=== PATIENT | female | born 1960 | race Caucasian/White ===

== ENCOUNTER 2017-06-11 19:11 | Inpatient (IN) | payer MEDICARE, MEDICAID ==
[2017-06-11 20:33] LABS: ALT 19 U/L (7-52); AST 66 U/L (13-39); Albumin 2.3 g/dL (3.2-5.2); Alkaline Phosphatase 41 U/L (34-104); BUN/Creatinine Ratio 11.1 (8-20); Blood Urea Nitrogen 13 mg/dL (6-24); Calcium 8.8 mg/dL (8.6-10.3); Chloride 92 mmol/L (101-111); EGFR African American 61.5 (>60); EGFR Non-African American 47.8 (>60); Globulin 3.8 g/dL (2-4); Glucose 119 mg/dL (70-100); Potassium 3.7 mmol/L (3.5-5.0); Sodium 129 mmol/L (133-145); Total Protein 6.1 g/dL (6.4-8.9)
[2017-06-11 20:34] LABS: Troponin I 0.11 ng/mL (<0.04)
[2017-06-11] MEDS ORDERED: NS 0.9% 1000 ML* 3,000 ML IV ONE (20:55)
[2017-06-11 21:01] LABS: Hematocrit 18 % (35-47); Mean Corpuscular HGB Conc 33 g/dl (31-36); Mean Corpuscular Hemoglobin 37 pg (27-31); Mean Corpuscular Volume 111 fL (80-97); Mean Platelet Volume 11 um3 (7.4-10.4); Red Blood Count 1.67 10^6/ul (4.0-5.4); Red Cell Distribution Width 15 % (10.5-15); White Blood Count 4.9 10^3/ul (3.5-10.8)
[2017-06-11 21:03] LABS: Comments Flag Yes
[2017-06-11 21:04] LABS: Acetaminophen < 15 mcg/mL; Add Diff/Slide Review? Slide Review Added; Alcohol < 10 mg/dL (<10); Hemoglobin 6.1 g/dl (12.0-16.0)
[2017-06-11 21:09] LABS: Anion Gap 27 mmol/L (2-11); CO2 Carbon Dioxide 10 mmol/L (22-32)
[2017-06-11 21:20] LABS: TSH (Thyroid Stimulating Horm) 2.99 mcIU/mL (0.34-5.60)
[2017-06-11 21:31] LABS: Urine Bilirubin Negative (Negative); Urine Glucose Negative (Negative); Urine Nitrite Negative (Negative)
[2017-06-11] MEDS ORDERED: Vancomycin(*) 1,000 MG in NS 0.9% 250 ML* 250 ML IVPB ONE (21:33)
[2017-06-11] MEDS ORDERED: Piperacillin/Tazobac ADVAN(*) 3.375 GM in NS 0.9% 100 ML* 100 ML IVPB ONE (21:34)
[2017-06-11] MEDS ORDERED: Ondansetron INJ* 2 MG/ML VIAL IV PRN (21:35)
[2017-06-11] MEDS ORDERED: Thiamine IV* 100 MG/ML 2 ML VIAL IM ONE (21:42)
[2017-06-11] MEDS ORDERED: Acetaminophen TAB* 325 MG PO PRN (21:42)
[2017-06-11 21:59] LABS: Creatine Kinase 492 U/L (10-223); Magnesium 1.8 mg/dL (1.9-2.7)
[2017-06-11] MEDS ORDERED: Vancomycin per Pharmacy* NOTE FOLLOW UP SCH (22:00)
[2017-06-11] MEDS ORDERED: Zosyn per Pharmacy* NOTE FOLLOW UP SCH (22:00)
[2017-06-11 22:01] LABS: Salicylate < 2.50 mg/dL (<30)
--- NOTE | 2017-06-11 22:06 | RAD ---
Indication: Confusion. CT of the brain was performed without IV contrast. Motion artifact degrades the images. Ventricular structures are midline. No midline shift is noted. The extra-axial spaces are unremarkable. There is no evidence of intracranial mass or hemorrhage. No other high or low density lesions are identified. Central and cortical atrophy are otherwise present. Mastoid air cells and paranasal sinuses are otherwise unremarkable. IMPRESSION: No intracranial mass or hemorrhage is noted.
--- NOTE | 2017-06-11 22:06 | RAD ---
Indication: Confusion. Single frontal view of the chest performed at 2150 hours was reviewed. Comparison is made with previous exam dated April 27, 2015. No mediastinal shift is noted. Heart is of normal size and configuration. Lung keenan appear clear. IMPRESSION: NO ACTIVE CARDIOPULMONARY DISEASE IS NOTED.
[2017-06-11] MEDS ORDERED: Vancomycin(*) 1,250 MG in NS 0.9% 250 ML* 250 ML IVPB ONE (22:20)
[2017-06-11] MEDS ORDERED: Piperacillin/Tazobac ADVAN(*) 3.375 GM in D5W 100 ML BAG* 100 ML IVPB ONE (22:30)
--- NOTE | 2017-06-11 22:41 | ED ---
Gissel Archuleta Gabriel, scribed for Darshan Bear MD on 06/11/17 at 1927 . Substance Abuse/Use - HPI Summary HPI Summary: This patient is a 56 year old F BIBA to [facility] after being found on her back at home, likely intoxicated. Patient will only respond with shut up. LEVEL 5 CAVEAT: Patient is uncooperative and likely intoxicated. - History Of Current Complaint Chief Complaint: EDSubstanceAbuse Stated Complaint: AMS Time Seen by Provider: 06/11/17 19:22 Hx Obtained From: Patient Hx From Patient Unobtainable Due To: Other - refuses to speak - Allergies/Home Medications Allergies/Adverse Reactions: Allergies Allergy/AdvReac Type Severity Reaction Status Date / Time super glue Allergy Intermediate effects Uncoded 05/09/15 13:29 breathing per pt PMH/Surg Hx/FS Hx/Imm Hx Previously Healthy: No Cardiovascular History: Reports: Hx Hypertension GI History: Reports: Hx Cirrhosis, Hx Gastroesophageal Reflux Disease Musculoskeletal History: Reports: Hx Osteoporosis Sensory History: Reports: Hx Contacts or Glasses Opthamlomology History: Reports: Hx Contacts or Glasses - Cancer History Cancer Type, Location and Year: mult myeloma Hx Chemotherapy: No Hx Radiation Therapy: No - Immunization History Date of Tetanus Vaccine: unk Date of Influenza Vaccine: unk Infectious Disease History: Unable to Obtain/Confirm Infectious Disease History: Denies: Traveled Outside the [place] in Last 30 Days - Social History Alcohol Use: Rare Substance Use Type: Reports: None Smoking Status (MU): Heavy Every Day Tobacco Smoker Type: Cigarettes - Additional Comments History Additional Comments: LEVEL 5 CAVEAT: Patient is uncooperative and likely intoxicated. Review of Systems - ROS Summary Review of Systems Summary: LEVEL 5 CAVEAT: Patient is uncooperative and likely intoxicated. Negative: Fever All Other Systems Reviewed And Are Negative: Yes Physical Exam - Summary Physical Exam Summary: Appearance: The patient is well-nourished in no acute distress and in no acute pain. Skin: The skin is warm and dry and skin color reflects adequate perfusion. HEENT: ~The head is normocephalic and atraumatic. The pupils are equal and reactive. The conjunctivae are clear and without drainage. ~Nares are patent and without drainage. ~Mouth reveals moist mucous membranes and the throat is without erythema and exudate. ~The external ears are intact. The ear canals are patent and without drainage. The tympanic membranes are intact. Neck: the neck is supple with full range of motion and non-tender. There are no carotid bruits. ~There is no neck vein distension. Respiratory: Chest is non-tender. ~Lungs are clear to auscultation and breath sounds are symmetrical and equal. Cardiovascular: Heart is regular rate and rhythm. ~There is no murmur or rub auscultated. ~~There is no peripheral edema and pulses are symmetrical and equal. Abdomen: The abdomen is soft and non-tender. ~There are normal bowel sounds heard in all four quadrants and there is no organomegaly palpated. Musculoskeletal: There is no back tenderness noted. ~Extremities are non-tender with full range of motion. ~There is good capillary refill. ~There is no peripheral edema or calf tenderness elicited. Neurological: Patient is alert and oriented to person, place and time. ~The patient has symmetrical motor strength in all four extremities. ~Cranial nerves are grossly intact. Deep tendon reflexes are symmetrical and equal in all four extremities. Psychiatric: The patient has an appropriate affect and does not exhibit any anxiety or depression. Triage Information Reviewed: Yes Vital Signs On Initial Exam: Initial Vitals Temp Pulse Resp BP Pulse Ox 97.8 F 122 18 101/35 98 06/11/17 19:14 06/11/17 19:14 06/11/17 19:14 06/11/17 19:14 06/11/17 19:14 Vital Signs Reviewed: Yes Completion Of Physical Exam Limited Due To: Level 5 - Kira Coma Scale Coma Scale Total: 13 Diagnostics - Vital Signs Vital Signs Temp Pulse Resp BP Pulse Ox 06/11/17 19:14 97.8 F 122 18 101/35 98 - Laboratory Lab Results: Lab Results 06/11/17 06/11/17 06/11/17 Range/Units 20:08 20:08 20:08 WBC 4.9 (3.5-10.8) 10^3/ul RBC 1.67 L (4.0-5.4) 10^6/ul Hgb 6.1 L* (12.0-16.0) g/dl Hct 18 L (35-47) % MCV 111 H (80-97) fL MCH 37 H (27-31) pg MCHC 33 (31-36) g/dl RDW 15 (10.5-15) % Plt Count 37 L (150-450) 10^3/ul MPV 11 H (7.4-10.4) um3 Neut % (Auto) 83.1 H (38-83) % Lymph % (Auto) 11.5 L (25-47) % [place] % (Auto) 5.1 (1-9) % Eos % (Auto) 0 (0-6) % Baso % (Auto) 0.3 (0-2) % Absolute Neuts (auto) 4.0 (1.5-7.7) 10^3/ul Absolute Lymphs (auto) 0.6 L (1.0-4.8) 10^3/ul Absolute Monos (auto) 0.2 (0-0.8) 10^3/ul Absolute Eos (auto) 0 (0-0.6) 10^3/ul Absolute Basos (auto) 0 (0-0.2) 10^3/ul Absolute Nucleated RBC 0.01 10^3/ul Nucleated RBC % 0.2 INR (Anticoag Therapy) (0.77-1.02) Sodium 129 L (133-145) mmol/L Potassium 3.7 (3.5-5.0) mmol/L Chloride 92 L (101-111) mmol/L Carbon Dioxide 10 L* (22-32) mmol/L Anion Gap 27 H (2-11) mmol/L BUN 13 (6-24) mg/dL Creatinine 1.17 H (0.51-0.95) mg/dL Est GFR ( Amer) 61.5 (>60) Est GFR (Non-Af Amer) 47.8 (>60) BUN/Creatinine Ratio 11.1 (8-20) Glucose 119 H (70-100) mg/dL Lactic Acid (0.5-2.0) mmol/L Calcium 8.8 (8.6-10.3) mg/dL Magnesium 1.8 L (1.9-2.7) mg/dL Total Bilirubin 3.30 H (0.2-1.0) mg/dL AST 66 H (13-39) U/L ALT 19 (7-52) U/L Alkaline Phosphatase 41 (34-104) U/L Ammonia 87 H (16-53) mol/L Total Creatine Kinase 492 H (10-223) U/L Troponin I 0.11 H* (<0.04) ng/mL Total Protein 6.1 L (6.4-8.9) g/dL Albumin 2.3 L (3.2-5.2) g/dL Globulin 3.8 (2-4) g/dL Albumin/Globulin Ratio 0.6 L (1-3) TSH 2.99 (0.34-5.60) mcIU/mL Urine Color Urine Appearance Urine pH (5-9) Ur Specific [place] (1.010-1.030) Urine Protein (Negative) Urine Ketones (Negative) Urine Blood (Negative) Urine Nitrate (Negative) Urine Bilirubin (Negative) Urine Urobilinogen (Negative) Ur Leukocyte Esterase (Negative) Urine Glucose (Negative) Salicylates < 2.50 (<30) mg/dL Acetaminophen < 15 mcg/mL Serum Alcohol < 10 (<10) mg/dL Blood Type Antibody Screen Crossmatch 06/11/17 06/11/17 06/11/17 Range/Units 20:08 20:08 20:08 WBC (3.5-10.8) 10^3/ul RBC (4.0-5.4) 10^6/ul Hgb (12.0-16.0) g/dl Hct (35-47) % MCV (80-97) fL MCH (27-31) pg MCHC (31-36) g/dl RDW (10.5-15) % Plt Count (150-450) 10^3/ul MPV (7.4-10.4) um3 Neut % (Auto) (38-83) % Lymph % (Auto) (25-47) % [place] % (Auto) (1-9) % Eos % (Auto) (0-6) % Baso % (Auto) (0-2) % Absolute Neuts (auto) (1.5-7.7) 10^3/ul Absolute Lymphs (auto) (1.0-4.8) 10^3/ul Absolute Monos (auto) (0-0.8) 10^3/ul Absolute Eos (auto) (0-0.6) 10^3/ul Absolute Basos (auto) (0-0.2) 10^3/ul Absolute Nucleated RBC 10^3/ul Nucleated RBC % INR (Anticoag Therapy) 1.73 H (0.77-1.02) Sodium (133-145) mmol/L Potassium (3.5-5.0) mmol/L Chloride (101-111) mmol/L Carbon Dioxide (22-32) mmol/L Anion Gap (2-11) mmol/L BUN (6-24) mg/dL Creatinine (0.51-0.95) mg/dL Est GFR ( Amer) (>60) Est GFR (Non-Af Amer) (>60) BUN/Creatinine Ratio (8-20) Glucose (70-100) mg/dL Lactic Acid 16.9 H* (0.5-2.0) mmol/L Calcium (8.6-10.3) mg/dL Magnesium (1.9-2.7) mg/dL Total Bilirubin (0.2-1.0) mg/dL AST (13-39) U/L ALT (7-52) U/L Alkaline Phosphatase (34-104) U/L Ammonia (16-53) mol/L Total Creatine Kinase (10-223) U/L Troponin I (<0.04) ng/mL Total Protein (6.4-8.9) g/dL Albumin (3.2-5.2) g/dL Globulin (2-4) g/dL Albumin/Globulin Ratio (1-3) TSH (0.34-5.60) mcIU/mL Urine Color Urine Appearance Urine pH (5-9) Ur Specific [place] (1.010-1.030) Urine Protein (Negative) Urine Ketones (Negative) Urine Blood (Negative) Urine Nitrate (Negative) Urine Bilirubin (Negative) Urine Urobilinogen (Negative) Ur Leukocyte Esterase (Negative) Urine Glucose (Negative) Salicylates (<30) mg/dL Acetaminophen mcg/mL Serum Alcohol (<10) mg/dL Blood Type A Positive Antibody Screen Pending Crossmatch See Detail 06/11/17 Range/Units 21:17 WBC (3.5-10.8) 10^3/ul RBC (4.0-5.4) 10^6/ul Hgb (12.0-16.0) g/dl Hct (35-47) % MCV (80-97) fL MCH (27-31) pg MCHC (31-36) g/dl RDW (10.5-15) % Plt Count (150-450) 10^3/ul MPV (7.4-10.4) um3 Neut % (Auto) (38-83) % Lymph % (Auto) (25-47) % [place] % (Auto) (1-9) % Eos % (Auto) (0-6) % Baso % (Auto) (0-2) % Absolute Neuts (auto) (1.5-7.7) 10^3/ul Absolute Lymphs (auto) (1.0-4.8) 10^3/ul Absolute Monos (auto) (0-0.8) 10^3/ul Absolute Eos (auto) (0-0.6) 10^3/ul Absolute Basos (auto) (0-0.2) 10^3/ul Absolute Nucleated RBC 10^3/ul Nucleated RBC % INR (Anticoag Therapy) (0.77-1.02) Sodium (133-145) mmol/L Potassium (3.5-5.0) mmol/L Chloride (101-111) mmol/L Carbon Dioxide (22-32) mmol/L Anion Gap (2-11) mmol/L BUN (6-24) mg/dL Creatinine (0.51-0.95) mg/dL Est GFR ( Amer) (>60) Est GFR (Non-Af Amer) (>60) BUN/Creatinine Ratio (8-20) Glucose (70-100) mg/dL Lactic Acid (0.5-2.0) mmol/L Calcium (8.6-10.3) mg/dL Magnesium (1.9-2.7) mg/dL Total Bilirubin (0.2-1.0) mg/dL AST (13-39) U/L ALT (7-52) U/L Alkaline Phosphatase (34-104) U/L Ammonia (16-53) mol/L Total Creatine Kinase (10-223) U/L Troponin I (<0.04) ng/mL Total Protein (6.4-8.9) g/dL Albumin (3.2-5.2) g/dL Globulin (2-4) g/dL Albumin/Globulin Ratio (1-3) TSH (0.34-5.60) mcIU/mL Urine Color Yellow Urine Appearance Clear Urine pH 5.0 (5-9) Ur Specific [place] 1.013 (1.010-1.030) Urine Protein Negative (Negative) Urine Ketones 1+ H (Negative) Urine Blood Negative (Negative) Urine Nitrate Negative (Negative) Urine Bilirubin Negative (Negative) Urine Urobilinogen Positive H (Negative) Ur Leukocyte Esterase Negative (Negative) Urine Glucose Negative (Negative) Salicylates (<30) mg/dL Acetaminophen mcg/mL Serum Alcohol (<10) mg/dL Blood Type Antibody Screen Crossmatch Result Diagrams: 06/11/17 20:08 06/11/17 20:08 Lab Statement: Any lab studies that have been ordered have been reviewed, and results considered in the medical decision making process. - Radiology CXR Radiology Interpretation Completed By: Radiologist - NO ACTIVE CARDIOPULMONARY DISEASE IS NOTED. ED physician has reviewed this report and agrees. - CT CT Head CT Interpretation Completed By: Radiologist - No intracranial mass or hemorrhage is noted. ED physician has reviewed this report and agrees. Course/Dx - Course Course Of Treatment: Ms. Aguirre was found by her significant other unresponsive on the floor. It was unclear how long she lay there. She reportedly had had a nosebleed and possibly coughed up some blood the last couple of days. Here sshe was agitated shouting "get out" and fighting any attempt to examine her. She was found to have a metabolic, anion gap acidosis which is at least partly a lactic acidosis. She was also very anemic and this may all be caused by a relative hypoxia. She is being admitted to the ICU with blood and fluids ordered. - Diagnoses Provider Diagnoses: Altered mental status, unspecified, Lactic acidosis, Severe anemia - Physician Notifications Discussed Care Of Patient With: Rachel Jordan Time Discussed With Above Provider: 21:18 Instructed by Provider To: Other - Discussed patient care with Dr. Jordan, she has agreed to admit the patient. - Critical Care Time Critical Care Time: 30-74 min Discharge - Discharge Plan Condition: Fair Disposition: ADMITTED TO [facility] documentation as recorded by the Gissel novak Gabriel accurately reflects the service I personally performed and the decisions made by me, Darshan Bear MD.
[2017-06-11 22:46] LABS: PCO2 Arterial < 20 mmHg (35-45)
[2017-06-12 00:28] LABS: Venous Bicarbonate HCO3 18.5 mmol/L (24-28)
[2017-06-12 00:49] LABS: BUN/Creatinine Ratio 12.6 (8-20); Calcium 8.1 mg/dL (8.6-10.3); EGFR African American 78.3 (>60); EGFR Non-African American 60.9 (>60); Potassium 3.3 mmol/L (3.5-5.0)
[2017-06-12 01:03] LABS: Troponin I 0.15 ng/mL (<0.04)
[2017-06-12] MEDS ORDERED: Norepinephrine 16MCG/ML IVPRE* 4,000 MCG/250 ML BAG IV ONE (01:36)
[2017-06-12] MEDS ORDERED: LORazepam INJ* 2 MG/ML 1 ML VIAL IV PUSH PRN (01:48)
[2017-06-12] MEDS ORDERED: LORazepam INJ* 2 MG/ML 1 ML VIAL ONE (01:52)
[2017-06-12] MEDS ORDERED: Norepinephrine 16MCG/ML IVPRE* 4,000 MCG/250 ML BAG IV SCH ×2 (02:00→09:38)
[2017-06-12 02:20] LABS: Benzodiazepine Urine Screen None Detected (None Detect)
--- NOTE | 2017-06-12 04:42 | HP ---
Cc: Snow Young MD HISTORY AND PHYSICAL: DATE OF ADMISSION: 06/11/17 TIME OF EVALUATION: 2099 CHIEF COMPLAINT: Altered mental status. HISTORY OF PRESENT ILLNESS: Please note patient is unable to have any meaningful interaction. I am unable to get in touch with the mother and the boyfriend is not present, hence we do not have his contact information. All information is obtained from the ER staff and EMS report. Per EMS report, the patient was found lying on her back repeatedly saying shut up. She began swinging and hitting the EMS staff when they tried to transport her and being very agitated. EMS was called by the boyfriend who did not come to the emergency room with the patient. In the emergency room, the patient had labs, was found to have significant lactic acidosis with macrocytic anemia and was referred to the hospitalist service for further evaluation. On my encounter, patient was resting, what appeared to be comfortably. Any attempt to examine her , she would thrash her arms and yell shut up. Thus, unable to obtain a review of systems. PAST MEDICAL HISTORY: 1. Appears patient to be followed by Dr. Quiroga for multiple myeloma. 2. History of cirrhosis of the liver. 3. History of alcohol use. 4. History of thrombocytopenia. 5. History of anasarca. 6. COPD. 7. Arthritis. 8. Hypertension. PAST SURGICAL HISTORY: Tonsillectomy and tubal /ectopic . MEDICATIONS: Unknown. ALLERGIES: SUPERGLUE. FAMILY HISTORY: Her mother has neuropathy, father has hypertension. SOCIAL HISTORY: Unclear, appears she has a boyfriend. It appears from her notes from 2014, that her parents are her healthcare proxies. She is a smoker, unclear if she is still actively drinking. REVIEW OF SYSTEMS: Unable to be obtain due to patient's altered mental status. CODE STATUS: Full code. PHYSICAL EXAMINATION GENERAL: No acute distress, when bothered, she thrashes her all extremities. It is limited exam, unable to assess her pupils. VITAL SIGNS: Temp is 97.8, pulse rate 111, respiratory rate 15, oxygen saturation 94% on room air, blood pressure 105/86. HEENT: Head is normocephalic. Her hair appears to be thinning. Unable to assess her pupils. She does appear slightly jaundiced. Mucous membranes, her lips are very dry and peeling. RESPIRATORY: Diminished breath sounds. CARDIAC: Systolic murmur, most prominent at the right sternal base. Tachycardiac. ABDOMEN: Limited exam, appears soft. EXTREMITIES: +1 DPs and chronic hemosiderin changes and venous insufficiency changes. NEUROLOGIC: The patient is unable to interact meaningfully, just yells repeatedly shut up and she is moving all extremities. LABORATORY DATA: White count 4.9, hemoglobin 6.1, hematocrit 18, MCV is 111, platelets 37. INR is 1.73. Sodium 129, potassium 3.7, chloride 92, bicarb 10, BUN 13, creatinine 1.17. Lactic acid 16.9, AST 66, total bili is 3.3. Troponin 0.11. Ammonia is 87. Total CK is 492. TSH 2.99. Urine shows +1 ketones. Salicylates negative, acetaminophen level negative, serum alcohol negative. RADIOGRAPHIC DATA: Unable to obtain yet at this time. ASSESSMENT: This is a 56-year-old female with a past medical history of what is believed to be multiple myeloma, chronic obstructive pulmonary disease, and alcohol use presents with altered mental status, found to have multiple laboratory derangements. 1. Altered mental status. Assessment: Unclear etiology. Differential is broad including sepsis, including hepatic encephalopathy, including overdose, toxic ingestion, including a seizure activity versus stroke. Plan: We will treat her lactic acidosis with fluids and followed by a bicarb drip, we will treat her with broad-spectrum antibiotics and obtain a blood culture. We will check a serum osmolarity to rule out any other toxic ingestions. We will also order thiamine IV as well. We will also check a chest x-ray, EKG, and head CT. 2. Macrocytic anemia: Assessment: We will give her 2 units of blood, Hemoccult her stool, although with no elevated BUN, it is unlikely and we will give her thiamine. 3. Chronic medical problems: We will need to follow up with family or boyfriend to get more history on her home medications and more history of what transpired and how long may she have been found down as it is unknown at this time. 4. FEN: We will keep her n.p.o. in the setting of her altered mental status to give her IV fluids. 5. DVT prophylaxis: We will place her on SCDs in the setting of a drop in her H and H. 6. Code status: Presumably full code. PATIENT TIME: Greater than 60 minutes were spent in doing history and physical , more than half the time spent in direct patient contact and critical care time. Case discussed with Dr. Cantor. [id number]/CPS #: [id number] NARAYAN
[2017-06-12 04:46] LABS: BUN/Creatinine Ratio 14.3 (8-20); Calcium 7.6 mg/dL (8.6-10.3); EGFR African American 99.7 (>60); EGFR Non-African American 77.5 (>60); Globulin 3.3 g/dL (2-4); Potassium 3.5 mmol/L (3.5-5.0); Total Bilirubin 3.9 mg/dL (0.2-1.0); Total Protein 5.3 g/dL (6.4-8.9)
[2017-06-12 04:58] LABS: Troponin I 0.46 ng/mL (<0.04)
[2017-06-12] MEDS: ZOSYN 3.375 GM Q8H per EXTENDED INFUSION IVPB SCH ×6 (05:15→19:33)
--- NOTE | 2017-06-12 10:44 | PN ---
Progress Note - Progress Note Date of Service: 06/12/17 Note: CRITICAL CARE MEDICINE Date: 06/12/17 Time: 945 SUBJECTIVE: Patient seen and examined. d/w hospitalist overnight. PHYSICAL EXAM: Vital Signs: Reviewed. levo at 4mcg and SBP 111. RA. Neurologic: eyes close; sitting up, moves all ext and verbal abuses with stimuli ; does not open eyes. when eyes opened she looks left but able to cross midline , reactive pupils and starts saying "what?. HEENT: Sclera mild icteric. Trachea midline. Cardiovascular: S1 S2 Respiratory: little coarse but clear. no rhonchi nor wheeze Abdomen: Soft, nt. no edema, No r/g/r. Extremities: Warm. no edema Access: piv LABS: Reviewed. IMAGING: Reviewed. MEDICATIONS: Reviewed. ASSESSMENT: 56 F Acute metabolic and hepatic encephalopathy Lactic acidosis Cirrhosis of the liver Associated chronic thrombocytopenia Macrocytic anemia of chronic liver dz and probable marrow suppression, with underlying low grade h/o MM Tx for sepsis on admission, but no source and sepsis to be r/o if culture remain benign Hyponatremia associated with liver dz Coagulopathy assoicated with liver dz Moderate protein malnutrition Tobacco abuse H/o etoh abuse Type 2 demand cardiac ischemia PLAN: Neurologic: improved somewhat it seems. protecting self. question if delirium or just still metabolic encepahlopathy to clear. head ct ok. now question of withdrawal or even hypoxic seizure leading to her presentation, especvially with her perfound LA if a remote possibility but not requiring diagnostics at this time; however if slower then perdicted return to baseline mentation (which may take aa few days with her metabolic and hepatic degrees anyway) then may consider mri/eeg needs. but right now, time and support. fix metabolics and utilize lactulose. Cardiovascular: Perfusing. still could utilize fluids today. trop sec to demand. tolerating and sbp >90 ok target. correcting anemia. Respiratory: tolerating on RA. at risk for aspiration and needs icu obs. Gastrointestinal: place ngt today to ensure no blood in stomach on very remote chance and then start meds, lactulose and likely early tf needs until encephalopathy improves to allow po. Renal/Metabolic: correcting and repleting. LA improving but slow to clear sec to liver dz. Infectious Disease: recieved empiric abx and can de-escalate to zosyn today and if cultures neg (as they should be) we can likely r/o sepsis. Hematology: chronic components and then likely more subacute anemia. multifatorial. check irons, retic. supplements. last onc note has pt without criteria for active MM and would be unlike to have advanced to this degree and would allow equilibration into next week and then consider needs for f/u there. Endocrine: tolerable. Musculoskeletal: oob as able. avoid deconditioing. will need pt when able to participate. Psych/Social: f/u needs; social work consult Supportive and preventative care as ordered. Vaccine: f/u when consentable. SUP: H2 VTE prophylaxis: scds; no chemical vte proph sec to quantitative plt abnormality Disposition: ICU Code Status: Full Critical Care Time: 41min Ct Cantor DO
[2017-06-12 10:59] LABS: Corrected Retic Count 3.3 % (0.5-1.5); Immature Retic Fraction 0.56
[2017-06-12 11:00] LABS: Comments Flag Yes
[2017-06-12] MEDS: NS 0.9% 1000 ML* 1,000 ML IV SCH (11:06)
[2017-06-12 11:50] LABS: Total Iron Binding Capacity 230 mcg/dL (250-450); Transferrin 164 mg/dL (203-362)
[2017-06-12] MEDS ORDERED: Vancomycin(*) 1,000 MG in NS 0.9% 250 ML* 250 ML IVPB SCH (12:00)
[2017-06-12] MEDS: Multivitamins/Minerals TAB PO SCH (12:08)
[2017-06-12] MEDS: Thiamine TAB* 100 MG TAB PO SCH (12:08)
[2017-06-12] MEDS: Folic Acid TAB* 1 MG PO SCH (12:08)
[2017-06-12 12:14] LABS: Iron 210 ug/dL (50-212)
[2017-06-12] MEDS: Famotidine SUSP* 40 MG/5 ML ORAL.SYRIN G TUBE SCH (12:23)
--- NOTE | 2017-06-12 13:31 | RAD ---
INDICATION: Nasogastric tube placement COMPARISON: Most recent comparison chest x-ray is dated June 11, 2017 TECHNIQUE: Single AP portable view of the chest was obtained. FINDINGS: Image quality is compromised due to the relative inferiority of a portable chest x-ray. There has been interval placement of a gastric tube with the tip terminating over the expected area of the left gastric fundus. There is left greater than right costophrenic angle blunting which can be seen in the setting of small pleural effusions. IMPRESSION: Interval placement of a gastric tube with the tip overlying the expected location of the gastric fundus.
[2017-06-12] MEDS: NS 0.9% w/ 40 Meq KCL 1000 ML* 1,000 ML IV SCH ×2 (17:24→23:52)
[2017-06-12] MEDS ORDERED: Phytonadione Oral Solution* 5 MG/25 ML UDC PO ONE (21:20)
[2017-06-12 22:19] LABS: BUN/Creatinine Ratio 16.4 (8-20); EGFR African American 130.5 (>60); EGFR Non-African American 101.5 (>60)
[2017-06-12 23:08] LABS: Hematocrit 25 % (35-47); Hemoglobin 8.6 g/dl (12.0-16.0); Mean Corpuscular HGB Conc 35 g/dl (31-36); Mean Corpuscular Hemoglobin 33 pg (27-31); Mean Corpuscular Volume 95 fL (80-97); Mean Platelet Volume 10 um3 (7.4-10.4); Red Blood Count 2.61 10^6/ul (4.0-5.4); Red Cell Distribution Width 23 % (10.5-15); White Blood Count 2.9 10^3/ul (3.5-10.8)
[2017-06-12 23:10] LABS: Add Diff/Slide Review? Slide Review Added; Comments Flag Yes
[2017-06-13] MEDS: ZOSYN 3.375 GM Q8H per EXTENDED INFUSION IVPB SCH ×6 (04:43→19:47)
[2017-06-13 06:15] LABS: Hematocrit 25 % (35-47); Hemoglobin 8.7 g/dl (12.0-16.0); Mean Corpuscular HGB Conc 35 g/dl (31-36); Mean Corpuscular Hemoglobin 34 pg (27-31); Mean Corpuscular Volume 97 fL (80-97); Mean Platelet Volume 10 um3 (7.4-10.4); Red Blood Count 2.59 10^6/ul (4.0-5.4); Red Cell Distribution Width 23 % (10.5-15); White Blood Count 2.6 10^3/ul (3.5-10.8)
[2017-06-13 06:27] LABS: Comments Flag Yes
[2017-06-13 06:29] LABS: Anion Gap 8 mmol/L (2-11); BUN/Creatinine Ratio 14.8 (8-20); Blood Urea Nitrogen 9 mg/dL (6-24); CO2 Carbon Dioxide 18 mmol/L (22-32); Calcium 7.4 mg/dL (8.6-10.3); Chloride 111 mmol/L (101-111); EGFR African American 130.5 (>60); EGFR Non-African American 101.5 (>60); Glucose 112 mg/dL (70-100); Magnesium 1.5 mg/dL (1.9-2.7); Potassium 3.6 mmol/L (3.5-5.0); Sodium 137 mmol/L (133-145)
[2017-06-13] MEDS: NS 0.9% 1000 ML* 1,000 ML IV SCH ×2 (06:35→19:47)
[2017-06-13 07:00] LABS: Phosphorus < 1.0 mg/dL (2.5-5.0)
[2017-06-13] MEDS ORDERED: Magnesium Sulf 4 GM/100 ML IV* 4,000 MG/100 ML BAG IVPB ONE (07:34)
[2017-06-13] MEDS ORDERED: Potassium Phosphate IV* 30 MMOLE in NS 0.9% 500 ML* 500 ML IVPB ONE (08:00)
[2017-06-13] MEDS: Multivitamins/Minerals TAB PO SCH (09:08)
[2017-06-13] MEDS: Thiamine TAB* 100 MG TAB PO SCH (09:08)
[2017-06-13] MEDS: Folic Acid TAB* 1 MG PO SCH (09:08)
[2017-06-13] MEDS: Famotidine SUSP* 40 MG/5 ML ORAL.SYRIN G TUBE SCH (09:09)
--- NOTE | 2017-06-13 10:20 | ECHO ---
Patient: YADIEL SULLIVAN [facility] Rec#: [id number] : 1960 Date: 06/13/2017 Age: 56y Height: 165.1 cm / 65.0 in Weight: 63.05 kg / 139.0 lbs Sex: F BSA: 1.69 Room#: ICU-5 Admit Date#: 06/11/2017 Type: Inpatient Referring: Rachel Jordan Reading: Cesar Velasco MD Hand Cloth Cutter: Trinidad Mcdonald RDCS CC: Snow Young MD Transthoracic Echocardiogram Indication: ACS, elevated troponins BP: 157/66 HR: 107 Rhythm: Tachycardia Findings History: HTN, COPD, GERD, cirrhosis, ETOH abuse, multiple myeloma, smoker. Technical Comments: The study quality is poor. The study is technically limited due to poor acoustic windows. The study is technically limited due to the patient's smoking history. Completed at 1000. Left Ventricle: The left ventricular chamber size is normal. There is no left ventricular hypertrophy. Global left ventricular wall motion and contractility are within normal limits. The left ventricle appears hyperdynamic.Sigmoid septum with mild increase in LVOT turbulence and velocity c/w mild dynamic obstruction. The estimated ejection fraction is greater than 65%. Abnormal left ventricular diastolic function is observed. Abnormal left ventricular diastolic filling is observed, consistent with impaired relaxation. Left Atrium: The left atrium is moderately dilated. Right Ventricle: The right ventricle wall thickness is moderately increased. The right ventricle is slightly dilated. The right ventricular global systolic function is normal. Right Atrium: The right atrial cavity size is normal. Aortic Valve: The aortic valve is trileaflet. The aortic valve leaflets are mildly thickened. There is a trace of aortic regurgitation. There is no evidence of aortic stenosis. Mitral Valve: The mitral valve leaflets are mildly thickened. There is trace to mild mitral regurgitation. There is no evidence of mitral stenosis. Tricuspid Valve: The tricuspid valve leaflets are mildly thickened. There is mild to moderate tricuspid regurgitation. The right ventricular systolic pressure is estimated at 44 mmHg. There is evidence of mild pulmonary hypertension. There is no tricuspid stenosis. Pulmonic Valve: The pulmonic valve structure is not well visualized. There is no pulmonic stenosis. Pericardium: There is no significant pericardial effusion. Aorta: There is no dilatation of the ascending aorta. There is no dilatation of the aortic arch. The aortic root is normal in size. Pulmonary Artery: The main pulmonary artery is not well visualized. Venous: The inferior vena cava is dilated. There is a greater than 50% respiratory change in the inferior vena cava dimension. Summary: There was not any prior study for comparison. Conclusions The left ventricle appears hyperdynamic. Sigmoid septum with mild increase in LVOT turbulence and velocity c/w mild dynamic obstruction. The estimated ejection fraction is greater than 65%. Abnormal left ventricular diastolic function is observed. The left atrium is moderately dilated. The right ventricle wall thickness is moderately increased. The right ventricle is slightly dilated. There is trace to mild mitral regurgitation. There is mild to moderate tricuspid regurgitation. The right ventricular systolic pressure is estimated at 44 mmHg. There is evidence of mild pulmonary hypertension. Measurements Name Value Normal Range RVIDd (AP) 2D 2.7 cm (0.9 - 2.6) RVDdMajor (2D) 4.1 cm (2.2 - 4.4) RAd ISD 4CH 4.9 cm (3.4 - 4.9) RA (A4C)W 4.2 cm (2.9 - 4.6) IVSd (2D) 1 cm (0.6 - 1) LVPWd (2D) 1 cm (0.6 - 1) LVIDd (2D) 4.1 cm (3.6 - 5.4) LVIDs (2D) 2.8 cm - LV FS (2D) 31 % (25 - 45) Aortic Annulus 2.1 cm (1.4 - 2.6) Ao root diameter (2D) 2.9 cm (2.1 - 3.5) Ascending Ao 3.2 cm (2.1 - 3.4) Aortic arch 2 cm (1.8 - 3.4) LA dimension (AP) 2D 4 cm (2.3 - 3.8) LAd ISD 4CH 5.4 cm (2.9 - 5.3) LA ISD 4CH W 4.6 cm (2.5 - 4.5) Name Value Normal Range LA ESV SP 4CH (A/L) 61 ml - LA ESV SP 2CH (A/L) 46 ml - LA ESV BP (A/L) 55 ml - LA ESV BP (A/L) index 32 ml/m2 - LA ESV SP 4CH (MOD) 58 ml - LA ESV SP 2CH (MOD) 45 ml - Name Value Normal Range MV E-wave Vmax 1.3 m/sec - MV deceleration time 172 msec - MV A-wave Vmax 1.7 m/sec - MV E:A ratio 0.76 ratio - LV septal e' Vmax 0.06 m/sec - LV lateral e' Vmax 0.07 m/sec - LV E:e' septal ratio 21.67 ratio - LV E:e' lateral ratio 18.57 ratio - Name Value Normal Range AV Vmax 1.9 m/sec - AV VTI 43.62 cm - AV peak gradient 14.6 mmHg - AV mean gradient 10.11 mmHg - LVOT Vmax 1.9 m/sec - LVOT VTI 36.67 cm - LVOT peak gradient 15.16 mmHg - LVOT mean gradient 10.3 mmHg - ANGELIQUE Vmax 0.64 m/sec - Name Value Normal Range TR Vmax 2.7 m/sec - TR peak gradient 29 mmHg - RAP 15 mmHg - RVSP 44 mmHg - IVC diameter 2.1 cm - Name Value Normal Range PV Vmax 1 m/sec - PV peak gradient 4.27 mmHg -
[2017-06-13] MEDS ORDERED: Phytonadione INJ (Adult)* 5 MG in NS 0.9% 50 ML* 50 ML IV ONE (10:48)
--- NOTE | 2017-06-13 11:05 | PN ---
Progress Note - Progress Note Date of Service: 06/13/17 Note: CRITICAL CARE MEDICINE Date: 06/13/17 Time: 945 SUBJECTIVE: Patient seen and examined. PHYSICAL EXAM: Vital Signs: Reviewed. Neurologic: eyes close; sitting up, moves all ext; quicker responses and more verbal responses but still doesnt want to open eyes. HEENT: Sclera mild icteric. Trachea midline. Cardiovascular: S1 S2, little tachy Respiratory: clear. no wheeze Abdomen: Soft, nt. no edema, No r/g/r. Extremities: Warm. no edema Access: piv LABS: Reviewed. IMAGING: Reviewed. MEDICATIONS: Reviewed. ASSESSMENT: 56 F Acute metabolic and hepatic encephalopathy Lactic acidosis Cirrhosis of the liver Associated chronic thrombocytopenia Macrocytic anemia of chronic liver dz and probable marrow suppression, with underlying low grade h/o MM Tx for sepsis on admission, but no source and sepsis to be r/o if culture remain benign Hyponatremia associated with liver dz Coagulopathy assoicated with liver dz Moderate protein malnutrition Tobacco abuse H/o etoh abuse Type 2 demand cardiac ischemia PLAN: Neurologic: improved. no concerns for seizure; f/u mutifactorial encephalopathy. lactlose. Cardiovascular: Perfusing. vol status ok. will see if she can drink and utilize some tf perhaps today and see how she mobilizes. may still need some fluid. no pressor needs Respiratory: tolerating on RA. Gastrointestinal: ngt well. rx, tf. sup. had bloody bm. with her plt and inr post low flow dynamics not surprising. counts stable. absolutely no peritnoeal or signs of abd pain. supportive care, but may warrant CT; but would allow her to continue to improve first, versus an active bleed to time ct need. Renal/Metabolic: correcting and repleting still. phos deplete. LA linger sec to liver dz. Infectious Disease: on zosyn today with f/u cx. Hematology: vit k po to no benefit and will try iv given her bloody bm. bun on admission not much at all to really think gi infectious or upper ailment but follow counts. no plt need at this time. Endocrine: tolerable. Musculoskeletal: oob as able. avoid deconditioing. Psych/Social: social work consult Supportive and preventative care as ordered. SUP: H2 VTE prophylaxis: scds; no chemical vte proph sec to quantitative plt abnormality Disposition: ICU Code Status: Full Critical Care Time: 25min F. Juan Sakshi, DO
[2017-06-13] MEDS ORDERED: Vancomycin Trough Check NOTE FOLLOW UP ONE (11:30)
[2017-06-13] MEDS: LORazepam INJ* 2 MG/ML 1 ML VIAL IV PUSH PRN (19:47)
[2017-06-14] MEDS: LORazepam INJ* 2 MG/ML 1 ML VIAL IV PUSH PRN (00:45)
[2017-06-14] MEDS: ZOSYN 3.375 GM Q8H per EXTENDED INFUSION IVPB SCH ×4 (02:58→11:08)
[2017-06-14] MEDS: NS 0.9% 1000 ML* 1,000 ML IV SCH ×2 (03:01→11:06)
[2017-06-14 07:29] LABS: BUN/Creatinine Ratio 9.1 (8-20); Calcium 7.5 mg/dL (8.6-10.3); EGFR Non-African American 114.3 (>60); Magnesium 2.2 mg/dL (1.9-2.7); Phosphorus 2.2 mg/dL (2.5-5.0); Potassium 3.5 mmol/L (3.5-5.0)
[2017-06-14] MEDS ORDERED: POTASSIUM PHOSPHATE IVPB ONE (08:00)
[2017-06-14] MEDS ORDERED: D5W IVPB ONE (08:00)
[2017-06-14] MEDS: Folic Acid TAB* 1 MG PO SCH (08:51)
[2017-06-14] MEDS: Multivitamins/Minerals TAB PO SCH (08:51)
[2017-06-14] MEDS: Thiamine TAB* 100 MG TAB PO SCH (08:51)
[2017-06-14] MEDS: Famotidine SUSP* 40 MG/5 ML ORAL.SYRIN G TUBE SCH (09:14)
[2017-06-14] MEDS ORDERED: Albuterol/Ipratropium NEB.SOL* Albuterol 2.5 MG/Ipratropium 0.5 MG 3 ML INH PRN (10:20)
[2017-06-14] MEDS ORDERED: LORazepam INJ* 2 MG/ML 1 ML VIAL IV PUSH PRN (13:18)
--- NOTE | 2017-06-14 13:36 | PN ---
Progress Note - Progress Note Date of Service: 06/14/17 Note: CRITICAL CARE MEDICINE Date: 06/13/17 Time: 945 SUBJECTIVE: Patient seen and examined. PHYSICAL EXAM: Vital Signs: Reviewed. Neurologic: better. opens eyes to voice. more attempts at communication but often unclear. RICHARDS. drinking. HEENT: Sclera anicteric. Trachea midline. Cardiovascular: S1 S2 Respiratory: clear. no wheeze but mild prolonged exhalation Abdomen: Soft, nt. Extremities: Warm. inc edema in abd, not legs, but also on R UE. Access: piv LABS: Reviewed. IMAGING: Reviewed. MEDICATIONS: Reviewed. ASSESSMENT: 56 F Acute metabolic and hepatic encephalopathy - improving Lactic acidosis on admission - resolved. Cirrhosis of the liver Associated chronic thrombocytopenia Macrocytic anemia of chronic liver dz and probable marrow suppression, with underlying low grade h/o MM Tx for sepsis on admission - r/o. Hyponatremia associated with liver dz Coagulopathy assoicated with liver dz Moderate protein malnutrition Hypophosphatemia (contributing to degree of LA) Tobacco abuse H/o etoh abuse Type 2 demand cardiac ischemia PLAN: Neurologic: improved. no concerns for seizure; f/u mutifactorial encephalopathy. lactlose. Cardiovascular: Perfusing. vol status up interstitially and intravasc ok. underlying liver disease may need midodrine + lasix for now to ensure recovery state but hopefully not needing chronic Respiratory: tolerating on RA. nebs prn. not cooperating to use is. Gastrointestinal: ngt continued. tf today as not meeting needs. hopefully can continue to recovery and not need but utilize for now. lasix + midodrine. Renal/Metabolic: lytes repletion. lasix f/u. Infectious Disease: cx neg, other then chronic leukopenia and risk factors, no infection identified and can dc all abx. Hematology: inr better and can use po suppl. Endocrine: tolerable. Musculoskeletal: oob as able. avoid deconditioning. Psych/Social: social work follow Supportive and preventative care as ordered. SUP: H2 VTE prophylaxis: scds; no chemical vte proph sec to quantitative plt abnormality Disposition: ICU Code Status: Full Critical Care Time: 25min Ct Cantor DO
[2017-06-14] MEDS: CMCS - Midodrine (NF) 5 MG TAB PO SCH ×2 (14:52→21:48)
[2017-06-14] MEDS ORDERED: NS 0.9% 1000 ML* 1,000 ML IV ONE (21:30)
[2017-06-15 06:43] LABS: Hematocrit 23 % (35-47); Hemoglobin 7.7 g/dl (12.0-16.0); Mean Corpuscular HGB Conc 33 g/dl (31-36); Mean Corpuscular Hemoglobin 33 pg (27-31); Mean Corpuscular Volume 100 fL (80-97); Mean Platelet Volume 10 um3 (7.4-10.4); Red Blood Count 2.33 10^6/ul (4.0-5.4)
[2017-06-15 06:54] LABS: Comments Flag Yes
[2017-06-15 06:55] LABS: White Blood Count 2.2 10^3/ul (3.5-10.8)
[2017-06-15 06:56] LABS: Red Cell Distribution Width 24 % (10.5-15)
[2017-06-15 06:57] LABS: BUN/Creatinine Ratio 9.3 (8-20); EGFR African American 150.2 (>60); EGFR Non-African American 116.8 (>60); Magnesium 1.9 mg/dL (1.9-2.7); Phosphorus 2.3 mg/dL (2.5-5.0); Potassium 3.2 mmol/L (3.5-5.0)
[2017-06-15] MEDS: Folic Acid TAB* 1 MG PO SCH (08:15)
[2017-06-15] MEDS: Multivitamins/Minerals TAB PO SCH (08:15)
[2017-06-15] MEDS: Famotidine SUSP* 40 MG/5 ML ORAL.SYRIN G TUBE SCH (08:15)
[2017-06-15] MEDS: CMCS - Midodrine (NF) 5 MG TAB PO SCH ×3 (08:15→22:10)
[2017-06-15] MEDS: Thiamine TAB* 100 MG TAB PO SCH (08:16)
[2017-06-15] MEDS ORDERED: NS IVPB ONE ×2 (09:21→10:00)
[2017-06-15] MEDS ORDERED: POTASSIUM PHOSPHATE IVPB ONE ×2 (09:21→10:00)
[2017-06-15] MEDS ORDERED: Potassium Phosphate IV* 30 MMOLE in NS 0.9% 250 ML* 250 ML IVPB ONE (10:00)
[2017-06-15] MEDS ORDERED: Phytonadione Oral Solution* 5 MG/25 ML UDC PO ONE (11:17)
--- NOTE | 2017-06-15 11:28 | PN ---
Progress Note - Progress Note Date of Service: 06/15/17 Note: CRITICAL CARE MEDICINE Date: 06/15/17 Time: 935 SUBJECTIVE: Patient seen and examined. PHYSICAL EXAM: Vital Signs: Reviewed. Neurologic: better again, progress but slow. more interactive but then seems affect limits her participation. HEENT: Sclera anicteric. Trachea midline. ngt stable Cardiovascular: S1 S2 Respiratory: clear. Abdomen: Soft, nt. Extremities: Warm. R UE edema and weeping. Access: picc LABS: Reviewed. IMAGING: Reviewed. MEDICATIONS: Reviewed. ASSESSMENT: 56 F Acute metabolic and hepatic encephalopathy - improving Lactic acidosis on admission - resolved. Cirrhosis of the liver Associated chronic thrombocytopenia Macrocytic anemia of chronic liver dz and marrow suppression Tx for sepsis on admission - r/o Hyponatremia associated with liver dz Coagulopathy assoicated with liver dz Moderate protein malnutrition Hypophosphatemia (contributing to degree of LA) Tobacco abuse H/o etoh abuse Type 2 demand cardiac ischemia on admission Hyperchloremic acidosis PLAN: Neurologic: improving from mutifactorial encephalopathy. lactulose continued. . Cardiovascular: Perfusing. vol status up interstitially but intravasc ok. po lasix. on midodrine to get her through this acute phase. Respiratory: tolerating on RA. nebs prn. Gastrointestinal: ngt continued until better swallow. check eval today. Renal/Metabolic: lyte repletion. Infectious Disease: cx neg. off abx Hematology: po suppl and follow. stool occult neg. Endocrine: tolerable. Musculoskeletal: oob. avoid deconditioning. Psych/Social: social work follow Supportive and preventative care as ordered. SUP: H2 VTE prophylaxis: scds; no chemical vte proph sec to quantitative plt abnormality Disposition: ICU today as not self rescuing yet, but hopeful for tomorrow. Code Status: Full Critical Care Time: 25min Ct Cantor DO
[2017-06-15] MEDS ORDERED: ZOSYN 3.375 GM Q8H per EXTENDED INFUSION IVPB SCH ×2 (11:30)
[2017-06-15] MEDS: Potassium Chloride LIQUID* 20 MEQ PACKET G TUBE SCH ×2 (12:10→22:17)
--- NOTE | 2017-06-15 12:57 | PN ---
Progress Note - Progress Note Date of Service: 06/15/17 Note: CRITICAL CARE MEDICINE Date: 06/16/17 Time: 1235 Doing well today. up to chair. conversing more with family. isra tf. awaiting swallow. ASSESSMENT: 56 F Acute metabolic and hepatic encephalopathy - improving Lactic acidosis on admission - resolved. Cirrhosis of the liver Associated chronic thrombocytopenia Macrocytic anemia of chronic liver dz and marrow suppression Tx for sepsis on admission - r/o Hyponatremia associated with liver dz Coagulopathy assoicated with liver dz Moderate protein malnutrition Hypophosphatemia (contributing to degree of LA) Tobacco abuse H/o etoh abuse Type 2 demand cardiac ischemia on admission Hyperchloremic acidosis PLAN: transfer to floor. continued lactulose. f/u lytes, phos, k f/u cbc, inr - known to onc if needed. no transfusion needs at present. look to wean off midodrine in next 24-48hrs. see if she finds a balance with lasix, +/- aldactone needs. F/u RUE swelling post iv infiltrate. on tf and advance po towards dc ng pt; social Code Status: Full Critical Care Time: 10min F. Juan Cantor DO
[2017-06-15] MEDS ORDERED: Spiriva Inhaler DEVICE* 1 EACH DEVICE SCH (13:00)
[2017-06-15] MEDS ORDERED: Piperacillin/Tazobac ADVAN(*) 3.375 GM in D5W 100 ML BAG* 100 ML IVPB SCH (19:30)
[2017-06-16 06:38] LABS: Hematocrit 26 % (35-47); Hemoglobin 8.3 g/dl (12.0-16.0); Mean Corpuscular HGB Conc 32 g/dl (31-36); Mean Corpuscular Hemoglobin 33 pg (27-31); Mean Corpuscular Volume 103 fL (80-97); Mean Platelet Volume 10 um3 (7.4-10.4); Red Blood Count 2.51 10^6/ul (4.0-5.4)
[2017-06-16 06:41] LABS: Add Diff/Slide Review? Slide Review Added; Comments Flag Yes; Red Cell Distribution Width 24 % (10.5-15)
[2017-06-16 06:42] LABS: White Blood Count 2.9 10^3/ul (3.5-10.8)
[2017-06-16 06:48] LABS: Albumin 1.8 g/dL (3.2-5.2); BUN/Creatinine Ratio 9.1 (8-20); Calcium 8.7 mg/dL (8.6-10.3); EGFR Non-African American 114.3 (>60); Globulin 3.5 g/dL (2-4); Magnesium 1.6 mg/dL (1.9-2.7); Phosphorus 3.2 mg/dL (2.5-5.0); Total Protein 5.3 g/dL (6.4-8.9)
[2017-06-16] MEDS: Potassium Chloride LIQUID* 20 MEQ PACKET G TUBE SCH (08:31)
[2017-06-16] MEDS: Famotidine SUSP* 40 MG/5 ML ORAL.SYRIN G TUBE SCH (08:32)
[2017-06-16] MEDS: Multivitamins/Minerals TAB PO SCH (08:32)
[2017-06-16] MEDS: CMCS - Midodrine (NF) 5 MG TAB PO SCH ×3 (08:33→21:40)
[2017-06-16] MEDS: Folic Acid TAB* 1 MG PO SCH (08:33)
[2017-06-16] MEDS: Tiotropium CAP.INH* CAP.INH/18 MCG (USE ORDER SET !) INH SCH (08:33)
[2017-06-16] MEDS: Thiamine TAB* 100 MG TAB PO SCH (08:33)
[2017-06-16] MEDS: Furosemide TAB* 40 MG PO SCH (12:00)
[2017-06-16] MEDS ORDERED: Furosemide TAB* 40 MG PO SCH (14:00)
--- NOTE | 2017-06-16 15:22 | PN ---
Subjective Date of Service: 06/16/17 Interval History: HOSPITALIST PROGRESS NOTE Patient seen and examined at bedside. She is more awake, states she's hungry, tried to remove her NGT earlier. Denies pain or dyspnea. Family History: Unchanged from Admission Social History: Unchanged from Admission Past Medical History: Unchanged from Admission Objective Active Medications: Acetaminophen (Tylenol Tab*) 650 mg PO Q4H PRN PRN Reason: PAIN Albuterol/Ipratropium (Duoneb (Albuterol 2.5 Mg/Ipratropium 0.5 Mg)) 1 neb INH Q4H PRN PRN Reason: SOB/WHEEZING Device (Tiotropium Inhaler Device*) 1 each .SEE ORDER .USE w/ SPIRIVA CAPS [facility] Famotidine (Pepcid Susp*) 20 mg G TUBE DAILY [facility] Last Admin: 06/16/17 08:32 Dose: 20 mg Folic Acid (Folvite Tab*) 1 mg PO DAILY [facility] Last Admin: 06/16/17 08:33 Dose: 1 mg Furosemide (Lasix Tab*) 40 mg PO DAILY [facility] Last Admin: 06/16/17 12:00 Dose: 40 mg Lactulose (Lactulose*) 30 ml NG TUBE TID [facility] Last Admin: 06/16/17 14:42 Dose: 30 ml Lorazepam (Ativan Inj*) 1 mg IV PUSH Q4H PRN PRN Reason: AGITATION Last Admin: 06/16/17 06:54 Dose: 1 mg Midodrine (Midodrine (Nf)) 5 mg PO TID ROSALIE PRN Reason: Protocol Last Admin: 06/16/17 14:42 Dose: 5 mg Multivitamins/Minerals (Theragran/Minerals Tab*) 1 tab PO DAILY [facility] Last Admin: 06/16/17 08:32 Dose: 1 tab Ondansetron HCl (Zofran Inj*) 4 mg IV Q4H PRN PRN Reason: NAUSEA/VOMITING Thiamine HCl (Vitamin B-1 Tab*) 100 mg PO DAILY [facility] Last Admin: 06/16/17 08:33 Dose: 100 mg Tiotropium [place] (Spiriva Cap.Inh*) 1 cap INH DAILY [facility] Last Admin: 06/16/17 08:33 Dose: 1 cap Vital Signs - 8 hr 06/16/17 06/16/17 06/16/17 08:00 08:10 11:34 Temperature 98.9 F 99.3 F Pulse Rate 96 100 Respiratory 18 18 20 Rate Blood Pressure 115/52 116/59 (mmHg) O2 Sat by Pulse 97 98 Oximetry Oxygen Devices in Use Now: None Appearance: Middle aged lady sitting up in bed in NAD. Eyes: - - Mild jaundice Ears/Nose/Mouth/Throat: Mucous Membranes Moist Neck: Trachea Midline Respiratory: Symmetrical Chest Expansion and Respiratory Effort, Clear to Auscultation Cardiovascular: RRR - Normal S1 and S2 Neurological: - - Alert and awake, Ox1 (self only) Result Diagrams: 06/16/17 05:55 06/16/17 05:55 Assess/Plan/Problems-Billing Assessment: Mrs. Aguirre is a 56yo F with PMH of alcohol abuse, liver cirrhosis, COPD, thrombocytopenia, who presented to ED on 06/11/17 with c/o altered MS, found to have hepatic encephalopathy, requiring ICU stay. - Patient Problems (1) Shock Comment: - Patient was hypotensive on admission requiring Levophed. Initially suspected sepsis, but this was not confirmed. - Etiology of shock is unclear. (2) Hepatic encephalopathy Comment: - Improving. - Continue Lactulose. - Ammonia 49. (3) Thrombocytopenia Comment: - Stable between 25-29k, no active bleeding. (4) Moderate protein-calorie malnutrition Comment: - Swallow evaluation appreciated - start pureed diet with honey thick liquids. - Continue NGT feeds until PO intake improves. (5) DVT prophylaxis Comment: - Pharmacological prophylaxis contraindicated due to severe thrombocytopenia. - SCDs. (6) Full code status Current Visit: Yes Status: Acute Code(s): Z78.9 - OTHER SPECIFIED HEALTH STATUS SNOMED Code(s): 982589176 Status and Disposition: Inpatient.
[2017-06-16] MEDS ORDERED: Magnesium Sulfate 2 GM IV* 2 GM/50 ML BAG IVPB ONE (16:42)
[2017-06-17 06:29] LABS: Albumin 1.7 g/dL (3.2-5.2); BUN/Creatinine Ratio 11.1 (8-20); Calcium 8.4 mg/dL (8.6-10.3); EGFR African American 150.2 (>60); EGFR Non-African American 116.8 (>60); Globulin 3.3 g/dL (2-4); Potassium 3.2 mmol/L (3.5-5.0); Total Bilirubin 2.9 mg/dL (0.2-1.0)
[2017-06-17 06:51] LABS: Hematocrit 24 % (35-47); Mean Corpuscular HGB Conc 33 g/dl (31-36); Mean Corpuscular Hemoglobin 33 pg (27-31); Mean Corpuscular Volume 100 fL (80-97); Mean Platelet Volume 11 um3 (7.4-10.4); Red Blood Count 2.42 10^6/ul (4.0-5.4); Red Cell Distribution Width 22 % (10.5-15)
[2017-06-17 06:54] LABS: Add Diff/Slide Review? Manual Diff Added; Comments Flag Yes
[2017-06-17 06:55] LABS: White Blood Count 2.9 10^3/ul (3.5-10.8)
[2017-06-17] MEDS: Furosemide TAB* 40 MG PO SCH (08:46)
[2017-06-17] MEDS: Folic Acid TAB* 1 MG PO SCH (08:46)
[2017-06-17] MEDS: Famotidine SUSP* 40 MG/5 ML ORAL.SYRIN G TUBE SCH (08:46)
[2017-06-17] MEDS: Multivitamins/Minerals TAB PO SCH (08:46)
[2017-06-17] MEDS: Thiamine TAB* 100 MG TAB PO SCH (08:46)
[2017-06-17] MEDS: CMCS - Midodrine (NF) 5 MG TAB PO SCH ×3 (08:46→21:05)
[2017-06-17] MEDS ORDERED: Potassium Chloride LIQUID* 20 MEQ PACKET NG TUBE SCH (09:00)
[2017-06-17] MEDS: Tiotropium CAP.INH* CAP.INH/18 MCG (USE ORDER SET !) INH SCH (09:01)
[2017-06-17 10:43] LABS: Eosinophils % 1 % (0-6); Immature Granulocytes 1 % (0-9); Neutrophil % 77 % (38-83)
[2017-06-17 10:44] LABS: Add Path Review? YES; Macrocytosis 1+
--- NOTE | 2017-06-17 14:15 | PN ---
Subjective Date of Service: 06/17/17 Interval History: HOSPITALIST PROGRESS NOTE Patient seen and examined at bedside. More awake today, does not want NGT anymore. Not up for conversation at this time. Family History: Unchanged from Admission Social History: Unchanged from Admission Past Medical History: Unchanged from Admission Objective Active Medications: Acetaminophen (Tylenol Tab*) 650 mg PO Q4H PRN PRN Reason: PAIN Albuterol/Ipratropium (Duoneb (Albuterol 2.5 Mg/Ipratropium 0.5 Mg)) 1 neb INH Q4H PRN PRN Reason: SOB/WHEEZING Device (Tiotropium Inhaler Device*) 1 each .SEE ORDER .USE w/ SPIRIVA CAPS [facility] Famotidine (Pepcid Susp*) 20 mg PO DAILY ROSALIE Folic Acid (Folvite Tab*) 1 mg PO DAILY [facility] Last Admin: 06/17/17 08:46 Dose: 1 mg Furosemide (Lasix Tab*) 40 mg PO DAILY [facility] Last Admin: 06/17/17 08:46 Dose: 40 mg Lactulose (Lactulose*) 30 ml PO TID ROSALIE Lorazepam (Ativan Inj*) 1 mg IV PUSH Q4H PRN PRN Reason: AGITATION Last Admin: 06/16/17 06:54 Dose: 1 mg Midodrine (Midodrine (Nf)) 5 mg PO TID ROSALIE PRN Reason: Protocol Last Admin: 06/17/17 08:46 Dose: 5 mg Multivitamins/Minerals (Theragran/Minerals Tab*) 1 tab PO DAILY [facility] Last Admin: 06/17/17 08:46 Dose: 1 tab Ondansetron HCl (Zofran Inj*) 4 mg IV Q4H PRN PRN Reason: NAUSEA/VOMITING Potassium Chloride (Klor-Con Liquid*) 40 meq PO DAILY [facility] Thiamine HCl (Vitamin B-1 Tab*) 100 mg PO DAILY [facility] Last Admin: 06/17/17 08:46 Dose: 100 mg Tiotropium [place] (Spiriva Cap.Inh*) 1 cap INH DAILY [facility] Last Admin: 06/17/17 09:01 Dose: 1 cap Vital Signs - 8 hr 06/17/17 06/17/17 06/17/17 07:04 07:47 11:10 Temperature 100.4 F 99.6 F Pulse Rate 95 100 Respiratory 20 16 20 Rate Blood Pressure 109/57 131/62 (mmHg) O2 Sat by Pulse 95 97 Oximetry Oxygen Devices in Use Now: None Appearance: Middle aged lady, appears older than stated age, sitting up in bed in NAD. Eyes: - - Mild jaundice Respiratory: Symmetrical Chest Expansion and Respiratory Effort, Clear to Auscultation Cardiovascular: RRR - Normal S1 and S2 Neurological: - - Alert and awake Result Diagrams: 06/17/17 05:50 06/17/17 05:50 Assess/Plan/Problems-Billing Assessment: Mrs. Aguirre is a 56yo F with PMH of alcohol abuse, liver cirrhosis, COPD, thrombocytopenia, who presented to ED on 06/11/17 with c/o altered MS, found to have hepatic encephalopathy, requiring ICU stay. - Patient Problems (1) Shock Comment: - Patient was hypotensive on admission requiring Levophed. Initially suspected sepsis, but this was not confirmed. - Etiology of shock is unclear. (2) Hepatic encephalopathy Comment: - Improving. - Continue Lactulose. - Ammonia 49. (3) Thrombocytopenia Comment: - Stable between 25-35k, no active bleeding. (4) Moderate protein-calorie malnutrition Comment: - Swallow evaluation appreciated - start pureed diet with honey thick liquids. - Continue NGT feeds as tolerated until PO intake improves. (5) DVT prophylaxis Comment: - Pharmacological prophylaxis contraindicated due to severe thrombocytopenia. - SCDs. (6) Full code status Status and Disposition: Inpatient.
[2017-06-18] MEDS: Tiotropium CAP.INH* CAP.INH/18 MCG (USE ORDER SET !) INH SCH (08:19)
[2017-06-18 08:20] LABS: Hematocrit 26 % (35-47); Hemoglobin 8.6 g/dl (12.0-16.0); Mean Corpuscular HGB Conc 34 g/dl (31-36); Mean Corpuscular Hemoglobin 34 pg (27-31); Mean Corpuscular Volume 101 fL (80-97); Mean Platelet Volume 10 um3 (7.4-10.4); Red Blood Count 2.54 10^6/ul (4.0-5.4); Red Cell Distribution Width 21 % (10.5-15)
[2017-06-18 08:21] LABS: Comments Flag Yes
[2017-06-18 08:22] LABS: Add Diff/Slide Review? Manual Diff Added
[2017-06-18 08:31] LABS: Albumin 1.6 g/dL (3.2-5.2); BUN/Creatinine Ratio 14.5 (8-20); C Reactive Protein 16.33 mg/L (< 5.00); Calcium 8.3 mg/dL (8.6-10.3); EGFR African American 128.1 (>60); EGFR Non-African American 99.6 (>60); Globulin 3.5 g/dL (2-4); Potassium 3.3 mmol/L (3.5-5.0); Total Bilirubin 3.7 mg/dL (0.2-1.0); Total Protein 5.1 g/dL (6.4-8.9)
[2017-06-18] MEDS ORDERED: Potassium Chloride LIQUID* 20 MEQ PACKET PO SCH (09:00)
[2017-06-18 09:04] LABS: Eosinophils % 1 % (0-6); Neutrophil % 76 % (38-83)
[2017-06-18 09:05] LABS: Macrocytosis 1+; Polychromasia 2+
[2017-06-18 09:06] LABS: Add Path Review? YES
--- NOTE | 2017-06-18 10:43 | PN ---
Subjective Date of Service: 06/18/17 Interval History: HOSPITALIST PROGRESS NOTE Patient seen and examined at bedside. Removed her NGT yesterday and is tolerating PO diet, although she does not like her honey thick liquids and intake is poor. Family History: Unchanged from Admission Social History: Unchanged from Admission Past Medical History: Unchanged from Admission Objective Active Medications: Acetaminophen (Tylenol Tab*) 650 mg PO Q4H PRN PRN Reason: PAIN Albuterol/Ipratropium (Duoneb (Albuterol 2.5 Mg/Ipratropium 0.5 Mg)) 1 neb INH Q4H PRN PRN Reason: SOB/WHEEZING Device (Tiotropium Inhaler Device*) 1 each .SEE ORDER .USE w/ SPIRIVA CAPS [facility] Famotidine (Pepcid Susp*) 20 mg PO DAILY [facility] Folic Acid (Folvite Tab*) 1 mg PO DAILY [facility] Last Admin: 06/17/17 08:46 Dose: 1 mg Furosemide (Lasix Tab*) 40 mg PO DAILY [facility] Last Admin: 06/17/17 08:46 Dose: 40 mg Lactulose (Lactulose*) 30 ml PO TID [facility] Last Admin: 06/17/17 21:10 Dose: 30 ml Lorazepam (Ativan Inj*) 1 mg IV PUSH Q4H PRN PRN Reason: AGITATION Last Admin: 06/16/17 06:54 Dose: 1 mg Midodrine (Midodrine (Nf)) 5 mg PO TID [facility] PRN Reason: Protocol Last Admin: 06/17/17 21:05 Dose: 5 mg Multivitamins/Minerals (Theragran/Minerals Tab*) 1 tab PO DAILY [facility] Last Admin: 06/17/17 08:46 Dose: 1 tab Ondansetron HCl (Zofran Inj*) 4 mg IV Q4H PRN PRN Reason: NAUSEA/VOMITING Potassium Chloride (Klor-Con Liquid*) 40 meq PO DAILY [facility] Thiamine HCl (Vitamin B-1 Tab*) 100 mg PO DAILY [facility] Last Admin: 06/17/17 08:46 Dose: 100 mg Tiotropium [place] (Spiriva Cap.Inh*) 1 cap INH DAILY [facility] Last Admin: 06/18/17 08:19 Dose: 1 cap Vital Signs - 8 hr 06/18/17 03:20 Temperature 99.4 F Pulse Rate 89 Respiratory 20 Rate Blood Pressure 105/46 (mmHg) O2 Sat by Pulse 99 Oximetry Oxygen Devices in Use Now: None Appearance: Middle aged lady sitting up in bed in NAD. Eyes: No Scleral Icterus Ears/Nose/Mouth/Throat: Mucous Membranes Moist Neck: Trachea Midline Respiratory: Symmetrical Chest Expansion and Respiratory Effort, Clear to Auscultation Cardiovascular: RRR - Normal S1 and S2 Neurological: - - AAOx2 (Self and place), RICHARDS Result Diagrams: 06/18/17 07:57 06/18/17 07:57 Assess/Plan/Problems-Billing Assessment: Mrs. Aguirre is a 56yo F with PMH of alcohol abuse, liver cirrhosis, COPD, thrombocytopenia, who presented to ED on 06/11/17 with c/o altered MS, found to have hepatic encephalopathy, requiring ICU stay. - Patient Problems (1) Fever Comment: - Patient had fever 103 yesterday - unclear source at this time. - Check blood and urine cultures, CxR - no antibiotics for now. (2) Shock Comment: - Patient was hypotensive on admission requiring Levophed. Initially suspected sepsis, but this was not confirmed. - Etiology of shock is unclear. (3) Hepatic encephalopathy Comment: - Improving. - Continue Lactulose. - Ammonia is 23. (4) Thrombocytopenia Comment: - Stable between 25-35k, no active bleeding. (5) Moderate protein-calorie malnutrition Comment: - Swallow evaluation appreciated - continue pureed diet with honey thick liquids. - Patient removed NGT yesterday - continue to monitor PO intake at this time. She is more awake and does not want another NGT. (6) DVT prophylaxis Comment: - Pharmacological prophylaxis contraindicated due to severe thrombocytopenia. - SCDs. (7) Full code status Status and Disposition: Inpatient. Continue PT/OT as tolerated. Will need KEV.
[2017-06-18] MEDS: Folic Acid TAB* 1 MG PO SCH (11:07)
[2017-06-18] MEDS: CMCS - Midodrine (NF) 5 MG TAB PO SCH ×3 (11:07→21:52)
[2017-06-18] MEDS: Multivitamins/Minerals TAB PO SCH (11:07)
[2017-06-18] MEDS: Famotidine SUSP* 40 MG/5 ML ORAL.SYRIN PO SCH (11:07)
[2017-06-18] MEDS: Furosemide TAB* 40 MG PO SCH (11:07)
[2017-06-18] MEDS: Thiamine TAB* 100 MG TAB PO SCH (11:07)
[2017-06-18] MEDS: KCL 10 MEQ/50 ML IVPREMIX* 10 MEQ/50 ML BAG IV SCH ×3 (13:57→16:26)
[2017-06-19] MEDS: Folic Acid TAB* 1 MG PO SCH (07:56)
[2017-06-19] MEDS: Furosemide TAB* 40 MG PO SCH (07:56)
[2017-06-19] MEDS: Multivitamins/Minerals TAB PO SCH (07:56)
[2017-06-19] MEDS: Famotidine SUSP* 40 MG/5 ML ORAL.SYRIN PO SCH (07:56)
[2017-06-19] MEDS: CMCS - Midodrine (NF) 5 MG TAB PO SCH ×3 (07:56→21:57)
[2017-06-19] MEDS: Thiamine TAB* 100 MG TAB PO SCH (08:02)
--- NOTE | 2017-06-19 09:48 | RAD ---
Indication: Fever. Chronic obstructive pulmonary disease. Comparison: June 12, 2017 Technique: Upright AP 0629 hours Report: Alveolar consolidation at the RIGHT mid to upper lung zone. Negative for volume loss. Negative for pleural effusion or pneumothorax. The heart, pulmonary vasculature, and mediastinal contours are unremarkable. IMPRESSION: Pneumonia which may involve the RIGHT upper lobe or superior segment of the RIGHT lower lobe new compared with the recent exam of June 12, 2017.
--- NOTE | 2017-06-19 12:06 | PN ---
Subjective Date of Service: 06/19/17 Interval History: Patient was sitting up earlier this morning. Now she is in bed, wants to sleep. Had a good breakfast, answered questions for nurse. Now reports occasional cough. Patient was on Zosyn for 4 days as well as vanco when in ICU. Family History: Unchanged from Admission Social History: Unchanged from Admission Past Medical History: Unchanged from Admission Objective Active Medications: Acetaminophen (Tylenol Tab*) 650 mg PO Q4H PRN PRN Reason: PAIN Albuterol/Ipratropium (Duoneb (Albuterol 2.5 Mg/Ipratropium 0.5 Mg)) 1 neb INH Q4H PRN PRN Reason: SOB/WHEEZING Device (Tiotropium Inhaler Device*) 1 each .SEE ORDER .USE w/ SPIRIVA CAPS [facility] Famotidine (Pepcid Susp*) 20 mg PO DAILY [facility] Last Admin: 06/19/17 07:56 Dose: 20 mg Folic Acid (Folvite Tab*) 1 mg PO DAILY [facility] Last Admin: 06/19/17 07:56 Dose: 1 mg Furosemide (Lasix Tab*) 40 mg PO DAILY [facility] Last Admin: 06/19/17 07:56 Dose: 40 mg Lactulose (Lactulose*) 30 ml PO TID [facility] Last Admin: 06/19/17 07:55 Dose: 30 ml Lorazepam (Ativan Inj*) 1 mg IV PUSH Q4H PRN PRN Reason: AGITATION Last Admin: 06/16/17 06:54 Dose: 1 mg Midodrine (Midodrine (Nf)) 5 mg PO TID [facility] PRN Reason: Protocol Last Admin: 06/19/17 07:56 Dose: 5 mg Multivitamins/Minerals (Theragran/Minerals Tab*) 1 tab PO DAILY [facility] Last Admin: 06/19/17 07:56 Dose: 1 tab Ondansetron HCl (Zofran Inj*) 4 mg IV Q4H PRN PRN Reason: NAUSEA/VOMITING Thiamine HCl (Vitamin B-1 Tab*) 100 mg PO DAILY [facility] Last Admin: 06/19/17 08:02 Dose: 100 mg Tiotropium [place] (Spiriva Cap.Inh*) 1 cap INH DAILY [facility] Last Admin: 06/18/17 08:19 Dose: 1 cap Vital Signs - 8 hr 06/19/17 06/19/17 08:00 08:08 Temperature 36.8 C Pulse Rate 96 Respiratory 18 20 Rate Blood Pressure 113/48 (mmHg) O2 Sat by Pulse 98 Oximetry Oxygen Devices in Use Now: None Appearance: sleeping, arouses to voice, no distress Ears/Nose/Mouth/Throat: Clear Oropharnyx Neck: No Thyroid Enlargement, Masses Respiratory: - - few expiratory ronchi RT base Cardiovascular: RRR, - - 2/6 systolic murmur at apex, radiates to axilla Abdominal: NL Sounds; No Tenderness; No Distention, No Hepatosplenomegaly Lymphatic: No Cervical Adenopathy Lines/Tubes/Other Access: Clean, Dry and Intact Peripheral IV Result Diagrams: 06/18/17 07:57 06/18/17 07:57 Microbiology and Other Data: Microbiology 06/15/17 05:00 Stool Stool Occult Blood ([facility]ONCHO) - Final 06/12/17 04:20 Blood Bag Transfusion Reaction Culture - Final 06/12/17 04:20 Blood Bag Transfusion Reaction Gram Stain - Final No Growth Day 5 06/12/17 00:10 Nasal Nasal Screen MRSA (PCR)([facility]) - Final Mrsa Negative 06/11/17 22:03 Blood Venous Aerobic Blood Culture - Final 06/11/17 22:03 Blood Venous Anaerobic Blood Culture - Final No Growth Day 5 No Growth Day 5 06/11/17 22:03 Blood Venous Aerobic Blood Culture - Final 06/11/17 22:03 Blood Venous Anaerobic Blood Culture - Final No Growth Day 5 No Growth Day 5 06/18/17 12:44 Blood Venous Blood Culture - Preliminary No Growth Day 1 Diagnostic Imaging: CXR: new RT upper lobe infiltrate Assess/Plan/Problems-Billing Assessment: Mrs. Aguirre is a 56yo F with PMH of alcohol abuse, liver cirrhosis, COPD, myeloma , who presented to ED on 06/11/17 with c/o altered MS, found to have hepatic encephalopathy, requiring ICU stay. - Patient Problems (1) Pneumonia of right upper lobe due to infectious organism Current Visit: Yes Status: Acute Priority: High Code(s): J18.1 - LOBAR PNEUMONIA, UNSPECIFIED ORGANISM SNOMED Code(s): 388393549 Comment: -Patient had fever yesterday, CXR this AM shows infiltrate -starting cefepime/vanco for HAP -patient immunosuppressed, risk for sepsis (2) Hepatic encephalopathy Current Visit: Yes Status: Acute Priority: High Code(s): K72.90 - HEPATIC FAILURE, UNSPECIFIED WITHOUT COMA SNOMED Code(s): 35029989 Comment: - Improving. - Continue Lactulose. - Ammonia normalized, will titrate down lactulose. (3) DVT prophylaxis Current Visit: Yes Status: Acute Priority: Low Code(s): [id number] - SNOMED Code(s): 753622461 Comment: - Pharmacological prophylaxis contraindicated due to severe thrombocytopenia. - SCDs. (4) Thrombocytopenia Current Visit: Yes Status: Acute Priority: Medium Code(s): D69.6 - THROMBOCYTOPENIA, UNSPECIFIED SNOMED Code(s): 780091052 Comment: -due to myeloma - Stable between 25-35k, no active bleeding. Status and Disposition: Inpatient. Continue PT/OT as tolerated. Will need KEV.
[2017-06-19] MEDS ORDERED: Vancomycin per Pharmacy* NOTE FOLLOW UP PRN (12:39)
[2017-06-19] MEDS: Cefepime 2 GM in Dextrose(*) 2 GM/50 ML BAG IV SCH (12:58)
[2017-06-19] MEDS ORDERED: Vancomycin(*) 1,250 MG in NS 0.9% 250 ML* 250 ML IVPB ONE (13:00)
[2017-06-19] MEDS ORDERED: NS 0.9% 250 ML* 500 ML ONE (13:03)
[2017-06-19] MEDS: Tiotropium CAP.INH* CAP.INH/18 MCG (USE ORDER SET !) INH SCH (13:37)
[2017-06-19] MEDS: Vancomycin(*) 1,000 MG in NS 0.9% 250 ML* 250 ML IVPB SCH (22:05)
[2017-06-20] MEDS: Cefepime 2 GM in Dextrose(*) 2 GM/50 ML BAG IV SCH ×2 (00:34→13:07)
[2017-06-20] MEDS: Vancomycin(*) 1,000 MG in NS 0.9% 250 ML* 250 ML IVPB SCH ×2 (04:58→13:10)
[2017-06-20 05:15] LABS: Hematocrit 25 % (35-47); Hemoglobin 8.6 g/dl (12.0-16.0); Mean Corpuscular HGB Conc 34 g/dl (31-36); Mean Corpuscular Hemoglobin 34 pg (27-31); Mean Corpuscular Volume 100 fL (80-97); Mean Platelet Volume 10 um3 (7.4-10.4); Red Blood Count 2.54 10^6/ul (4.0-5.4); Red Cell Distribution Width 20 % (10.5-15); White Blood Count 4.4 10^3/ul (3.5-10.8)
[2017-06-20 05:16] LABS: Comments Flag Yes
[2017-06-20 05:34] LABS: BUN/Creatinine Ratio 18.2 (8-20); C Reactive Protein 30.76 mg/L (< 5.00); Calcium 7.9 mg/dL (8.6-10.3); EGFR African American 119.1 (>60); EGFR Non-African American 92.6 (>60); Potassium 3.4 mmol/L (3.5-5.0)
[2017-06-20] MEDS: Famotidine SUSP* 40 MG/5 ML ORAL.SYRIN PO SCH (08:19)
[2017-06-20] MEDS: Folic Acid TAB* 1 MG PO SCH (08:20)
[2017-06-20] MEDS: Thiamine TAB* 100 MG TAB PO SCH (08:20)
[2017-06-20] MEDS: CMCS - Midodrine (NF) 5 MG TAB PO SCH ×3 (08:20→20:39)
[2017-06-20] MEDS: Multivitamins/Minerals TAB PO SCH (08:20)
[2017-06-20] MEDS: Furosemide TAB* 40 MG PO SCH (08:20)
[2017-06-20] MEDS: Tiotropium CAP.INH* CAP.INH/18 MCG (USE ORDER SET !) INH SCH (08:29)
--- NOTE | 2017-06-20 10:42 | PN ---
Subjective Date of Service: 06/20/17 Interval History: Patient reports mild cough. Has been eating well. Denies diarrhea. Reports she was up to chair, had shower yesterday. Family History: Unchanged from Admission Social History: Unchanged from Admission Past Medical History: Unchanged from Admission Objective Active Medications: Acetaminophen (Tylenol Tab*) 650 mg PO Q4H PRN PRN Reason: PAIN Albuterol/Ipratropium (Duoneb (Albuterol 2.5 Mg/Ipratropium 0.5 Mg)) 1 neb INH Q4H PRN PRN Reason: SOB/WHEEZING Device (Tiotropium Inhaler Device*) 1 each .SEE ORDER .USE w/ SPIRIVA CAPS [facility] Last Admin: 06/19/17 13:37 Dose: 1 each Famotidine (Pepcid Susp*) 20 mg PO DAILY [facility] Last Admin: 06/20/17 08:19 Dose: 20 mg Folic Acid (Folvite Tab*) 1 mg PO DAILY [facility] Last Admin: 06/20/17 08:20 Dose: 1 mg Cefepime HCl (Maxipime 2 Gm In Dextrose Duplex (*)) 2 gm in 50 mls @ 100 mls/ hr IV Q12H [facility] Last Admin: 06/20/17 00:34 Dose: 100 mls/hr Vancomycin HCl 1,000 mg/ (Sodium Chloride) 250 mls @ 166.667 mls/hr IVPB Q8H [facility] Last Admin: 06/20/17 04:58 Dose: 166.667 mls/hr Lactulose (Lactulose*) 30 ml PO BID [facility] Lorazepam (Ativan Inj*) 1 mg IV PUSH Q4H PRN PRN Reason: AGITATION Last Admin: 06/16/17 06:54 Dose: 1 mg Midodrine (Midodrine (Nf)) 5 mg PO TID [facility] PRN Reason: Protocol Last Admin: 06/20/17 08:20 Dose: 5 mg Multivitamins/Minerals (Theragran/Minerals Tab*) 1 tab PO DAILY [facility] Last Admin: 06/20/17 08:20 Dose: 1 tab Ondansetron HCl (Zofran Inj*) 4 mg IV Q4H PRN PRN Reason: NAUSEA/VOMITING Thiamine HCl (Vitamin B-1 Tab*) 100 mg PO DAILY [facility] Last Admin: 06/20/17 08:20 Dose: 100 mg Tiotropium [place] (Spiriva Cap.Inh*) 1 cap INH DAILY [facility] Last Admin: 06/20/17 08:29 Dose: 1 cap Vital Signs - 8 hr 06/20/17 06/20/17 06/20/17 03:15 07:34 08:00 Temperature 37.1 C 36.8 C Pulse Rate 87 89 Respiratory 14 16 16 Rate Blood Pressure 86/45 96/47 (mmHg) O2 Sat by Pulse 94 98 Oximetry Oxygen Devices in Use Now: Nasal Cannula Appearance: sleeping, arouses easily, no distress Ears/Nose/Mouth/Throat: Clear Oropharnyx Neck: No Thyroid Enlargement, Masses Respiratory: Clear to Auscultation Cardiovascular: NL Sounds; No Murmurs; No JVD, No Edema Abdominal: NL Sounds; No Tenderness; No Distention Lymphatic: No Cervical Adenopathy Neurological: Alert and Oriented x 3 Lines/Tubes/Other Access: Clean, Dry and Intact Peripheral IV Nutrition: Taking PO's Result Diagrams: 06/20/17 05:03 06/20/17 05:03 Additional Lab and Data: Lab Results Laboratory Tests 06/20/17 05:03 C-Reactive Protein 30.76 H Microbiology and Other Data: Microbiology 06/15/17 05:00 Stool Stool Occult Blood (PONCHO) - Final 06/12/17 04:20 Blood Bag Transfusion Reaction Culture - Final 06/12/17 04:20 Blood Bag Transfusion Reaction Gram Stain - Final No Growth Day 5 06/12/17 00:10 Nasal Nasal Screen MRSA (PCR)([facility]) - Final Mrsa Negative 06/11/17 22:03 Blood Venous Aerobic Blood Culture - Final 06/11/17 22:03 Blood Venous Anaerobic Blood Culture - Final No Growth Day 5 No Growth Day 5 06/18/17 12:44 Blood Venous Blood Culture - Preliminary No Growth Day 2 06/18/17 12:30 Blood Venous Aerobic Blood Culture - Preliminary 06/18/17 12:30 Blood Venous Anaerobic Blood Culture - Preliminary No Growth Day 1 No Growth Day 1 Diagnostic Imaging: CXR: new RT upper lobe infiltrate Assess/Plan/Problems-Billing Assessment: Mrs. Aguirre is a 56yo F with PMH of alcohol abuse, liver cirrhosis, COPD, myeloma , who presented to ED on 06/11/17 with c/o altered MS, found to have hepatic encephalopathy, requiring ICU stay. - Patient Problems (1) Pneumonia of right upper lobe due to infectious organism Current Visit: Yes Status: Acute Priority: High Code(s): J18.1 - LOBAR PNEUMONIA, UNSPECIFIED ORGANISM SNOMED Code(s): 334853734 Comment: -Patient had fever 2 days ago, afebrile, CXR yesterday shows new infiltrate -started cefepime/vanco for hospital-acquired PNA, responding well -patient immunosuppressed (2) Hepatic encephalopathy Current Visit: Yes Status: Acute Priority: High Code(s): K72.90 - HEPATIC FAILURE, UNSPECIFIED WITHOUT COMA SNOMED Code(s): 36365431 Comment: - Improving. - Continue Lactulose BID - Ammonia normalized, we titrated down lactulose. (3) DVT prophylaxis Current Visit: Yes Status: Acute Priority: Low Code(s): [id number] - SNOMED Code(s): 062218143 Comment: - Pharmacological prophylaxis contraindicated due to severe thrombocytopenia. - SCDs. (4) Thrombocytopenia Current Visit: Yes Status: Acute Priority: Medium Code(s): D69.6 - THROMBOCYTOPENIA, UNSPECIFIED SNOMED Code(s): 235256189 Comment: - due to myeloma - Stable between 25-35k, no active bleeding. - discussed case with Dr. Quiroga, he wants to see her in office. (5) Hyponatremia Current Visit: Yes Status: Acute Priority: Medium Code(s): E87.1 - HYPO- OSMOLALITY AND HYPONATREMIA SNOMED Code(s): 71082361 Comment: - sodium much lower today, likely due to lung process - will stop furosemide, and fluid restrict - recheck BMP in AM Status and Disposition: Inpatient. Continue PT/OT as tolerated. Will need subacute rehab.
[2017-06-20] MEDS ORDERED: Vancomycin Trough Check NOTE FOLLOW UP ONE (12:30)
[2017-06-20] MEDS ORDERED: NS 0.9% 250 ML* 250 ML ONE (16:43)
[2017-06-20] MEDS: Vancomycin(*) 750 MG in NS 0.9% 250 ML* 250 ML IVPB SCH (17:21)
[2017-06-21] MEDS: Cefepime 2 GM in Dextrose(*) 2 GM/50 ML BAG IV SCH ×2 (00:09→12:23)
[2017-06-21] MEDS: Omeprazole CAP* 20 MG PO SCH ×2 (00:11→06:01)
[2017-06-21] MEDS: Vancomycin(*) 750 MG in NS 0.9% 250 ML* 250 ML IVPB SCH ×2 (00:56→08:48)
[2017-06-21 05:50] LABS: Hematocrit 26 % (35-47); Hemoglobin 8.5 g/dl (12.0-16.0); Mean Corpuscular HGB Conc 33 g/dl (31-36); Mean Corpuscular Hemoglobin 34 pg (27-31); Mean Corpuscular Volume 100 fL (80-97); Mean Platelet Volume 11 um3 (7.4-10.4); Red Blood Count 2.54 10^6/ul (4.0-5.4); Red Cell Distribution Width 20 % (10.5-15); White Blood Count 3.7 10^3/ul (3.5-10.8)
[2017-06-21 05:53] LABS: Comments Flag Yes
[2017-06-21 06:04] LABS: BUN/Creatinine Ratio 14.1 (8-20); Calcium 7.5 mg/dL (8.6-10.3); EGFR African American 98.3 (>60); EGFR Non-African American 76.4 (>60); Potassium 2.9 mmol/L (3.5-5.0)
[2017-06-21] MEDS ORDERED: NS 0.9% 250 ML* 250 ML ONE (08:34)
[2017-06-21] MEDS: Tiotropium CAP.INH* CAP.INH/18 MCG (USE ORDER SET !) INH SCH (08:39)
[2017-06-21] MEDS: Famotidine SUSP* 40 MG/5 ML ORAL.SYRIN PO SCH (08:44)
[2017-06-21] MEDS: Folic Acid TAB* 1 MG PO SCH (08:46)
[2017-06-21] MEDS: Multivitamins/Minerals TAB PO SCH (08:46)
[2017-06-21] MEDS: CMCS - Midodrine (NF) 5 MG TAB PO SCH ×2 (08:46→13:36)
[2017-06-21] MEDS: Thiamine TAB* 100 MG TAB PO SCH (08:46)
--- NOTE | 2017-06-21 12:48 | PN ---
Subjective Date of Service: 06/21/17 Interval History: Little cough. Appetite OK. No bowel c/o. Family History: Unchanged from Admission Social History: Unchanged from Admission Past Medical History: Unchanged from Admission Objective Active Medications: Acetaminophen (Tylenol Tab*) 650 mg PO Q4H PRN PRN Reason: PAIN Albuterol/Ipratropium (Duoneb (Albuterol 2.5 Mg/Ipratropium 0.5 Mg)) 1 neb INH Q4H PRN PRN Reason: SOB/WHEEZING Device (Tiotropium Inhaler Device*) 1 each .SEE ORDER .USE w/ SPIRIVA CAPS [facility] Last Admin: 06/19/17 13:37 Dose: 1 each Famotidine (Pepcid Susp*) 20 mg PO DAILY [facility] Last Admin: 06/21/17 08:44 Dose: 20 mg Folic Acid (Folvite Tab*) 1 mg PO DAILY [facility] Last Admin: 06/21/17 08:46 Dose: 1 mg Cefepime HCl (Maxipime 2 Gm In Dextrose Duplex (*)) 2 gm in 50 mls @ 100 mls/ hr IV Q12H [facility] Last Admin: 06/21/17 12:23 Dose: 100 mls/hr Lactulose (Lactulose*) 30 ml PO BID [facility] Last Admin: 06/21/17 08:44 Dose: 30 ml Lorazepam (Ativan Inj*) 1 mg IV PUSH Q4H PRN PRN Reason: AGITATION Last Admin: 06/16/17 06:54 Dose: 1 mg Midodrine (Midodrine (Nf)) 5 mg PO TID [facility] PRN Reason: Protocol Last Admin: 06/21/17 08:46 Dose: 5 mg Multivitamins/Minerals (Theragran/Minerals Tab*) 1 tab PO DAILY [facility] Last Admin: 06/21/17 08:46 Dose: 1 tab Omeprazole (Prilosec Cap*) 20 mg PO 0600 [facility] Last Admin: 06/21/17 06:01 Dose: 20 mg Ondansetron HCl (Zofran Inj*) 4 mg IV Q4H PRN PRN Reason: NAUSEA/VOMITING Pharmacy Profile Note (Vancomycin Trough Check) 1 note FOLLOW UP ONCE ONE Stop: 06/21/17 16:31 Thiamine HCl (Vitamin B-1 Tab*) 100 mg PO DAILY [facility] Last Admin: 06/21/17 08:46 Dose: 100 mg Tiotropium [place] (Spiriva Cap.Inh*) 1 cap INH DAILY [facility] Last Admin: 06/21/17 08:39 Dose: 1 cap Vital Signs - 8 hr 06/21/17 06/21/17 07:21 08:40 Pulse Rate 93 Respiratory 18 18 Rate O2 Sat by Pulse 93 Oximetry Oxygen Devices in Use Now: None Appearance: Alert, partly up in bed. In good spirits. Looks comfortable. Eyes: No Scleral Icterus Cardiovascular: RRR, No Edema, - - 1/6 systolic murmur across precordium Extremities: No Edema, No Clubbing, Cyanosis, - Skin: No Rash or Ulcers, No Nodules or Sclerosis, - Neurological: Alert and Oriented x 3, NL Sensation - No tremor Result Diagrams: 06/21/17 05:22 06/21/17 05:22 Additional Lab and Data: Lab Results Laboratory Tests 06/20/17 05:03 C-Reactive Protein 30.76 H Microbiology and Other Data: Microbiology 06/15/17 05:00 Stool Stool Occult Blood (PONCHO) - Final 06/12/17 04:20 Blood Bag Transfusion Reaction Culture - Final 06/12/17 04:20 Blood Bag Transfusion Reaction Gram Stain - Final No Growth Day 5 06/12/17 00:10 Nasal Nasal Screen MRSA (PCR)([facility]) - Final Mrsa Negative 06/11/17 22:03 Blood Venous Aerobic Blood Culture - Final 06/11/17 22:03 Blood Venous Anaerobic Blood Culture - Final No Growth Day 5 No Growth Day 5 06/18/17 12:44 Blood Venous Blood Culture - Preliminary No Growth Day 2 06/18/17 12:30 Blood Venous Aerobic Blood Culture - Preliminary 06/18/17 12:30 Blood Venous Anaerobic Blood Culture - Preliminary No Growth Day 1 No Growth Day 1 Diagnostic Imaging: CXR: new RT upper lobe infiltrate Assess/Plan/Problems-Billing Assessment: Mrs. Aguirre is a 56yo F with PMH of alcohol abuse, liver cirrhosis, COPD, myeloma , who presented to ED on 06/11/17 with c/o altered MS, found to have hepatic encephalopathy, requiring ICU stay. - Patient Problems (1) Hepatic encephalopathy Current Visit: Yes Status: Acute Priority: High Code(s): K72.90 - HEPATIC FAILURE, UNSPECIFIED WITHOUT COMA SNOMED Code(s): 35599464 Comment: - Improved. - Continue Lactulose 30 ml BID, tolerating well. (2) Pneumonia of right upper lobe due to infectious organism Current Visit: Yes Status: Acute Priority: High Code(s): J18.1 - LOBAR PNEUMONIA, UNSPECIFIED ORGANISM SNOMED Code(s): 580432705 Comment: Improved. Stop vanco. Switch to po antibiotic on discharge, cefuroxime 500 mg bid x 4 days. (3) Cytopenia Current Visit: Yes Status: Acute Code(s): D75.9 - DISEASE OF BLOOD AND BLOOD -FORMING ORGANS, UNSPECIFIED SNOMED Code(s): 43249267 Comment: Anemia, throbocytopenia, borderline WBC all likely due to cirrhosis. Needs outpt fup. Status and Disposition: Walking well. Discharge home. Fup Dr. Young.
--- NOTE | 2017-06-21 13:15 | PN ---
Progress Note - Progress Note Date of Service: 06/21/17 Note: Time spent on discharge 55 minutes.
[2017-06-21 13:35] VITALS: BP 92/42
[2017-06-21] MEDS ORDERED: Vancomycin Trough Check NOTE FOLLOW UP ONE (16:30)
--- NOTE | 2017-06-22 02:23 | DS ---
CC: Dr. Young * DISCHARGE SUMMARY: DATE OF ADMISSION: 06/11/17 DATE OF DISCHARGE: 06/21/17 HISTORY OF PRESENT ILLNESS: This 56-year-old woman presented with altered mental status, the history is detailed in the admission note. She had an elevated ammonia level. She was felt to have hepatitis cirrhosis with hepatic encephalopathy. Whether recent alcohol abuse entered into the picture is difficult to say at this point. Her alcohol level on admission was undetectable. She was given 2 units of blood for her anemia. Later, she was felt to have pneumonia and was given antibiotics for this. She was treated in the intensive care unit for a while. She gradually improved. She was started on midodrine for low blood pressure. Her 2 units of blood was given on . Her hematocrit was 18 before the transfusion and 25 after. It was 26 on the day of discharge. She had significant thrombocytopenia as well. The platelets count was 37 on admission and 45 on the day of discharge. White blood count was 3.7. Potassium was slow. It was 2.9 on the morning of discharge. She was given 20 mEq of potassium and restarted on her spironolactone. She had been on furosemide at home. This was not given in the hospital and will not be continued. She seems to tolerate the current dose of lactulose well. Her ammonia level returned to normal. She was completely oriented on the day of discharge. She was able to walk 200 feet with a walker. FINAL DIAGNOSES: 1. Hepatic encephalopathy. 2. Possible pneumonia. 3. Anemia and thrombocytopenia. 4. Chronic obstructive pulmonary disease. DISCHARGE MEDICATIONS: 1. Folic acid 1 mg daily. 2. Lactulose 30 mL b.i.d. 3. Midodrine 5 mg t.i.d. 4. Thiamine 100 mg daily. 5. Cefuroxime 500 mg b.i.d. for 4 days. 6. Omeprazole 20 mg daily. 7. Tiotropium 1 capsule daily. 8. Albuterol by nebulizer 3 times daily p.r.n. 9. Umeclidinium/Vyvanse 62.5 two puffs daily. 10. Spironolactone 25 mg daily. 11. Alendronate 70 mg every week. [id number]/[facility] #: [id number] [facility]
[2017-06-22] MEDS ORDERED: Spironolactone TAB* 25 MG PO SCH (09:00)
[2017-06-22] MEDS ORDERED: Potassium Chlor TAB* 10 MEQ TAB.ER PO ONE (13:30)
== END 2017-06-21 15:10 | disposition home health service (06) | DRG 441 ==
LOC: ED 19:11 → ICU 21:35 → MEDTELE 06-15 12:50 → MED 06-19 23:15
PROVIDERS: ADMIT Pediatrics; ATTEND Internal Medicine
PROC: 3E033XZ Introduction of Vasopressor into Peripheral Vein, Percutaneous Approach (ICD-10-PCS; 2017-06-11)
PROC: 0DH67UZ Insertion of Feeding Device into Stomach, Via Natural or Artificial Opening (ICD-10-PCS; principal; 2017-06-12)
PROC: 3E0G76Z Introduction of Nutritional Substance into Upper GI, Via Natural or Artificial Opening (ICD-10-PCS; 2017-06-12)
PROC: 30233N1 Transfusion of Nonautologous Red Blood Cells into Peripheral Vein, Percutaneous Approach (ICD-10-PCS; 2017-06-12)
PROC: 02HV33Z Insertion of Infusion Device into Superior Vena Cava, Percutaneous Approach (ICD-10-PCS; 2017-06-12)
PROC: 0DP6XUZ Removal of Feeding Device from Stomach, External Approach (ICD-10-PCS; 2017-06-17)
DX: K72.90 Hepatic failure, unspecified without coma (principal); J18.9 Pneumonia, unspecified organism; R57.9 Shock, unspecified; E44.0 Moderate protein-calorie malnutrition; C90.00 Multiple myeloma not having achieved remission; D68.4 Acquired coagulation factor deficiency; D69.6 Thrombocytopenia, unspecified; N25.89 Other disorders resulting from impaired renal tubular function; E87.1 Hypo-osmolality and hyponatremia; E87.2 Acidosis; I24.8 Other forms of acute ischemic heart disease; K74.60 Unspecified cirrhosis of liver; D53.9 Nutritional anemia, unspecified; J44.9 Chronic obstructive pulmonary disease, unspecified; K21.9 Gastro-esophageal reflux disease without esophagitis; M81.0 Age-related osteoporosis without current pathological fracture; F17.210 Nicotine dependence, cigarettes, uncomplicated; R40.2412 Glasgow coma scale score 13-15, at arrival to emergency department; E83.39 Other disorders of phosphorus metabolism; M19.90 Unspecified osteoarthritis, unspecified site; I10 Essential (primary) hypertension; Z91.048 Other nonmedicinal substance allergy status; Z72.89 Other problems related to lifestyle; Z82.0 Family history of epilepsy and other diseases of the nervous system; Z82.49 Family history of ischemic heart disease and other diseases of the circulatory system; Z68.24 Body mass index [BMI] 24.0-24.9, adult
CPT/HCPCS: 36415; 70450; 71010; 80048; 80053; 80202; 80307; 80320; 80329; 81003; 82140; 82272; 82550; 82803; 83540; 83550; 83605; 83735; 83930; 84100; 84443; 84484; 85025; 85027; 85045; 85060; 85610; 86078; 86140; 86850; 86900; 86901; 86922; 87040; 87641; 93005; 93306; 94640; 94760; A9270-GY; C1751; G0480; J0692; J2060; J2543; J3370; J3411; J3430; J3475; J3480; P9040

== ENCOUNTER 2017-07-15 10:06 | Inpatient (IN) | payer MEDICARE, MEDICAID ==
[2017-07-15 10:56] LABS: ABS Basophils 0 10^3/ul (0-0.2); ABS Eosinophils 0.2 10^3/ul (0-0.6); ABS Lymphocytes 0.5 10^3/ul (1.0-4.8); ABS Monocytes 0.3 10^3/ul (0-0.8); ABS Nucleated RBC 0 10^3/ul; Eosinophil % 3.3 % (0-6); Hematocrit 25 % (35-47); Hemoglobin 8.5 g/dl (12.0-16.0); INR 1.9 (0.77-1.02); Lymphocyte % 10.3 % (25-47); Mean Corpuscular HGB Conc 34 g/dl (31-36); Mean Corpuscular Hemoglobin 31 pg (27-31); Mean Corpuscular Volume 93 fL (80-97); Mean Platelet Volume 10 um3 (7.4-10.4); Nucleated Red Blood Cells % 0.2; Platelet Count 76 10^3/ul (150-450); Red Blood Count 2.73 10^6/ul (4.0-5.4); Red Cell Distribution Width 17 % (10.5-15)
[2017-07-15] MEDS ORDERED: NS 0.9% 1000 ML* 1,000 ML IV ONE (11:31)
[2017-07-15 11:50] LABS: EGFR Non-African American 41.3 (>60)
[2017-07-15] MEDS ORDERED: Ondansetron INJ* 2 MG/ML VIAL IV PRN (14:51)
[2017-07-15] MEDS ORDERED: Potassium Chlor TAB* 20 MEQ TAB.ER PO ONE ×3 (14:59→21:26)
[2017-07-15] MEDS ORDERED: Albuterol/Ipratropium NEB.SOL* Albuterol 2.5 MG/Ipratropium 0.5 MG 3 ML INH PRN (14:59)
[2017-07-15] MEDS ORDERED: Magnesium Sulf 4 GM/100 ML IV* 4,000 MG/100 ML BAG IVPB ONE (15:59)
[2017-07-15] MEDS ORDERED: cefTRIAXone(*) 2 GM in NS 0.9% 100 ML* 100 ML IVPB SCH (16:00)
--- NOTE | 2017-07-15 16:06 | RAD ---
INDICATION: Cough. COMPARISON: Comparison is made with a prior chest x-ray study from June 19, 2017. TECHNIQUE: A portable view of the chest was obtained. FINDINGS: Cardiac and mediastinal contours appear to be within normal limits. The lungs are underinflated and grossly clear. There appears to be near complete interval resolution of the previously noted right upper lobe infiltrate. No pleural effusion is seen. IMPRESSION: NEAR COMPLETE RESOLUTION OF THE RIGHT UPPER LOBE INFILTRATE.
--- NOTE | 2017-07-15 16:29 | ED ---
Miguel Angel Archuleta Stephanie, scribed for Darshan Bear MD on 07/15/17 at 1122 . Complex/Multi-Sys Presentation - HPI Summary HPI Summary: The pt is a 56 y/o F presenting to the ED for abnormal labs per EMS. EMS states patients doctor called 911 because he could not get ahold of patient. Patient arrives slightly jaundiced, alert and oriented with bouts of confusion. Symptoms include pain in the middle of the chest and abdominal bloating. - History Of Current Complaint Chief Complaint: EDGeneral Time Seen by Provider: 07/15/17 10:15 Hx Obtained From: Patient, EMS Onset/Duration: Still Present Timing: Constant Associated Signs And Symptoms: Positive: Chest Pain - medial, Other - abdominal bloating - Allergies/Home Medications Allergies/Adverse Reactions: Allergies Allergy/AdvReac Type Severity Reaction Status Date / Time super glue Allergy Intermediate effects Uncoded 06/11/17 22:59 breathing per pt Home Medications: Home Medications Bumetanide TAB* [Bumex 1 MG TAB*] 1 mg PO .TWICE WEEKLY 07/15/17 [History Confirmed 07/15/17] Calcium Carbonate TAB* 1,250 mg PO DAILY 07/15/17 [History Confirmed 07/15/17] Cholecalciferol CAP/TAB(NF) [Vitamin D3 CAP/TAB (NF)] 2,000 unit PO DAILY [History Confirmed 07/15/17] Lactulose* 30 ml PO DAILY 07/15/17 [History Confirmed 07/15/17] Magnesium Oxide TAB* [MagOx 400 TAB*] 400 mg PO DAILY 07/15/17 [History Confirmed 07/15/17] Midodrine (NF) 10 mg PO TID 07/15/17 [History Confirmed 07/15/17] Potassium Chlor TAB* [Klor Con ER TAB*] 10 meq PO DAILY 07/15/17 [History Confirmed 07/15/17] Potassium Chlor TAB* [Klor Con ER TAB*] 20 meq PO DAILY 07/15/17 [History Confirmed 07/15/17] Umeclidin/Vilant 62.5 MDI(NF) [ANORO 62.5/25 Ellipta DEVICE (NF)] 2 inh PO DAILY 07/15/17 [History Confirmed 07/15/17] PMH/Surg Hx/FS Hx/Imm Hx Endocrine/Hematology History: Reports: Hx Bone Marrow Disease Cardiovascular History: Reports: Hx Hypertension Respiratory History: Reports: Hx Chronic Obstructive Pulmonary Disease (COPD) GI History: Reports: Hx Cirrhosis, Hx Gastroesophageal Reflux Disease Musculoskeletal History: Reports: Hx Arthritis, Hx Osteoporosis Sensory History: Reports: Hx Contacts or Glasses Denies: Hx Hearing Aid Opthamlomology History: Reports: Hx Contacts or Glasses Psychiatric History: Reports: Hx Substance Abuse - ETOH - Cancer History Cancer Type, Location and Year: multiple myeloma Hx Chemotherapy: No Hx Radiation Therapy: No - Surgical History Surgery Procedure, Year, and Place: tonsillectomy Hx Anesthesia Reactions: No - Immunization History Date of Tetanus Vaccine: UTD Date of Influenza Vaccine: UTD Infectious Disease History: Unable to Obtain/Confirm Infectious Disease History: Denies: Traveled Outside the [place] in Last 30 Days - Family History Known Family History: Positive: Unknown - Pt is unaware of any family history when asked. - Social History Alcohol Use: UNKNOWN Alcohol Amount: states she doesn't anymore Substance Use Type: Reports: None Hx Tobacco Use: Yes Smoking Status (MU): Current Every Day Smoker Type: Cigarettes Review of Systems Negative: Fever Positive: Chest Pain - medial Positive: Other - abdominal bloating All Other Systems Reviewed And Are Negative: Yes Physical Exam - Summary Physical Exam Summary: Appearance: The pt is icteric and jaundiced and seems confused. Skin: The skin is warm and dry and skin color reflects adequate perfusion. HEENT: The head is normocephalic and atraumatic. The pupils are equal and reactive. The conjunctivae are clear and without drainage. Nares are patent and without drainage. Mouth reveals moist mucous membranes and the throat is without erythema and exudate. The external ears are intact. The ear canals are patent and without drainage. The tympanic membranes are intact. Neck: the neck is supple with full range of motion and non-tender. There are no carotid bruits. There is no neck vein distension. Respiratory: Chest is non-tender. Lungs are clear to auscultation and breath sounds are symmetrical and equal. Cardiovascular: Heart is regular rate and rhythm. There is no murmur or rub auscultated. There is no peripheral edema and pulses are symmetrical and equal. Abdomen: There is no organomegaly palpated. The abdomen is distended and dull to percussion. Musculoskeletal: There is no back tenderness noted. Extremities are non-tender with full range of motion. There is good capillary refill. There is no peripheral edema or calf tenderness elicited. Neurological: Patient is alert and oriented to person, place and time. The patient has symmetrical motor strength in all four extremities. Cranial nerves are grossly intact. Deep tendon reflexes are symmetrical and equal in all four extremities. Psychiatric: The patient has an appropriate affect and does not exhibit any anxiety or depression. Triage Information Reviewed: Yes Vital Signs On Initial Exam: Initial Vitals Temp Pulse Resp BP Pulse Ox 99.5 F 94 16 98/52 100 07/15/17 10:11 07/15/17 10:11 07/15/17 10:11 07/15/17 10:11 07/15/17 10:11 Vital Signs Reviewed: Yes - [place] Coma Scale Coma Scale Total: 15 Diagnostics - Vital Signs Vital Signs Temp Pulse Resp BP Pulse Ox 07/15/17 10:11 99.5 F 94 16 98/52 100 - Laboratory Lab Results: Lab Results 07/15/17 07/15/17 07/15/17 Range/Units 10:36 10:36 10:36 WBC 5.0 (3.5-10.8) 10^3/ul RBC 2.73 L (4.0-5.4) 10^6/ul Hgb 8.5 L (12.0-16.0) g/dl Hct 25 L (35-47) % MCV 93 (80-97) fL MCH 31 (27-31) pg MCHC 34 (31-36) g/dl RDW 17 H (10.5-15) % Plt Count 76 L (150-450) 10^3/ul MPV 10 (7.4-10.4) um3 Neut % (Auto) 79.8 (38-83) % Lymph % (Auto) 10.3 L (25-47) % Bryan % (Auto) 5.9 (1-9) % Eos % (Auto) 3.3 (0-6) % Baso % (Auto) 0.7 (0-2) % Absolute Neuts (auto) 4.0 (1.5-7.7) 10^3/ul Absolute Lymphs (auto) 0.5 L (1.0-4.8) 10^3/ul Absolute Monos (auto) 0.3 (0-0.8) 10^3/ul Absolute Eos (auto) 0.2 (0-0.6) 10^3/ul Absolute Basos (auto) 0 (0-0.2) 10^3/ul Absolute Nucleated RBC 0 10^3/ul Nucleated RBC % 0.2 INR (Anticoag Therapy) 1.90 H (0.77-1.02) Sodium Pending Potassium Pending Chloride Pending Carbon Dioxide Pending Anion Gap Pending BUN Pending Creatinine Pending Est GFR ( Amer) Pending Est GFR (Non-Af Amer) Pending BUN/Creatinine Ratio Pending Glucose Pending Lactic Acid (0.5-2.0) mmol/L Calcium Pending Total Bilirubin Pending AST Pending ALT Pending Alkaline Phosphatase Pending Troponin I 0.03 (<0.04) ng/mL C-Reactive Protein Pending Total Protein Pending Albumin Pending Globulin Pending Albumin/Globulin Ratio Pending Lipase Pending Serum Alcohol Pending 07/15/17 Range/Units 10:36 WBC (3.5-10.8) 10^3/ul RBC (4.0-5.4) 10^6/ul Hgb (12.0-16.0) g/dl Hct (35-47) % MCV (80-97) fL MCH (27-31) pg MCHC (31-36) g/dl RDW (10.5-15) % Plt Count (150-450) 10^3/ul MPV (7.4-10.4) um3 Neut % (Auto) (38-83) % Lymph % (Auto) (25-47) % Bryan % (Auto) (1-9) % Eos % (Auto) (0-6) % Baso % (Auto) (0-2) % Absolute Neuts (auto) (1.5-7.7) 10^3/ul Absolute Lymphs (auto) (1.0-4.8) 10^3/ul Absolute Monos (auto) (0-0.8) 10^3/ul Absolute Eos (auto) (0-0.6) 10^3/ul Absolute Basos (auto) (0-0.2) 10^3/ul Absolute Nucleated RBC 10^3/ul Nucleated RBC % INR (Anticoag Therapy) (0.77-1.02) Sodium Potassium Chloride Carbon Dioxide Anion Gap BUN Creatinine Est GFR ( Amer) Est GFR (Non-Af Amer) BUN/Creatinine Ratio Glucose Lactic Acid 2.6 H* (0.5-2.0) mmol/L Calcium Total Bilirubin AST ALT Alkaline Phosphatase Troponin I (<0.04) ng/mL C-Reactive Protein Total Protein Albumin Globulin Albumin/Globulin Ratio Lipase Serum Alcohol Result Diagrams: 07/15/17 10:36 07/15/17 10:36 Lab Statement: Any lab studies that have been ordered have been reviewed, and results considered in the medical decision making process. Complex Multi-Symp Course/Dx Course Of Treatment: Ms. Aguirre has severe cirrhosis and has not been taking care of herself. She has prominent ascites and the hospitlists are admitting her for therapeutic paracentesis as well as further W/U. - Diagnoses Provider Diagnoses: Hepatic encephalopathy Discharge - Discharge Plan Condition: Fair Disposition: ADMITTED TO [facility] The documentation as recorded by the Miguel Angel novak Stephanie accurately reflects the service I personally performed and the decisions made by me, Darshan Bear MD.
--- NOTE | 2017-07-15 20:04 | HP ---
CC: Dr. Young * HISTORY AND PHYSICAL: DATE OF ADMISSION: 07/15/17 PRIMARY CARE PROVIDER: Dr. Young. ATTENDING PHYSICIAN WHILE IN THE HOSPITAL: Ana King MD* (report dictated by Samir Ga NP) CHIEF COMPLAINT: 1. Abnormal labs. 2. Concern for safety at home. HISTORY OF PRESENT ILLNESS: Mrs. Aguirre is a 56-year-old female patient who was recently here in the hospital for altered mental status, found to have possible pneumonia and found to be encephalopathic. She was here for several days, discharged on the . She has been doing well, but the patient states that she has noticed that she has had progressive worsening swelling of her abdomen, more ascites. She received the phone call yesterday from her primary that her sodium was off and her electrolytes seemed to be imbalanced. She was told to stop her diuretics. The patient was being called today by the primary and primary could not get a hold of her. According to the patient, she could not get to the phone and the patient's primary had called 911 as there is concern for her safety and electrolyte imbalances. The patient denies having any fevers or chills. She does admit to having some right upper abdominal discomfort and epigastric abdominal pain. She denies any fevers, chills. She says she has been coughing, but that has been nonproductive. She states she does not feel short of breath. She does feel very laid down by the increased amount of fluid. She denies having any chest pain. She states she is really short of breath with exertion. Denies any orthopnea or nocturnal dyspnea. She does admit to having weight gain since being discharged here from [facility]. She says that she has been taking her medications as prescribed. She has been having loose stools, but although she again is on lactulose daily. She denies having any tarry stools, denies having any vomiting of blood and denies having any selma blood per the rectum or with vomit. She has not vomited. There was concern though because of her abnormal labs noted that she is mildly hyponatremic. In addition to this, her ammonia was elevated at 63. Bili was up and there was concern for the ascites and we were asked to evaluate for admission. PAST MEDICAL HISTORY: Significant for: 1. Multiple myeloma. 2. Cirrhosis. 3. EtOH abuse. 4. Thrombocytopenia. 5. Anasarca. 6. COPD. 7. Arthritis. 8. Hypertension. PAST SURGICAL HISTORY: She has had tonsillectomy and she has had ectopic . MEDICATIONS: Home meds include: 1. Thiamine 100 mg p.o. daily. 2. Bactrim 1 tablet p.o. daily. 3. Vitamin D3 2000 units p.o. daily. 4. Spironolactone 25 mg daily. 5. Potassium 30 mEq daily. 6. Prilosec 20 mg p.o. b.i.d. 7. Midodrine 10 mg p.o. t.i.d. 8. Magnesium oxide 400 mg p.o. daily. 9. Lactulose 30 cc p.o. daily. 10. Folic acid 1 mg daily. 11. Cefuroxime 500 mg p.o. b.i.d. 12. Calcium carbonate 1250 mg p.o. daily. 13. Bumex 1 mg p.o. twice weekly. 14. Ellipta 2 inhalations p.o. daily. 15. Fosamax 70 mg p.o. weekly. 16. Albuterol/ipratropium bromide 1 neb inhaled t.i.d. as needed. 17. She did finish her cefuroxime and need to clarify her midodrine dose, as she was on 5 at discharge last time she was here, now it appears that she is up to 10 t.i.d. ALLERGIES TO MEDICATIONS: Include no known drug allergies. FAMILY HISTORY: Mother has a history of neuropathy. Father had a history of hypertension. SOCIAL HISTORY: She is a smoker. She has been a half a pack to pack a day smoker since the age of 15. She does admit to being on alcohol, but she states she has not had a drink since her admission here in early June. She is . Surrogate decision maker, she wished may be her parents. REVIEW OF SYSTEMS: There is a weight change, she does not know how much. She denied having any double vision. There is no ear discharge. She denied having any rhinorrhea. No sore throat. No thyroid enlargement. Does admit to having cough, but it is nonproductive. She does admit to having some right upper abdominal discomfort described as a cramping feeling. Denies having any nausea, vomiting. No dysuria, no frequency. There was no seizure, no loss of consciousness, no pruritus, and no skin ulcerations. Review of 14 systems was completed, all others negative. PHYSICAL EXAMINATION GENERAL: At this time, Mrs. Aguirre is a 56-year-old female patient. She is sitting in the ED stretcher. She does not appear to be in any acute distress. She is chronically ill appearing. She appears to be older than stated age. VITAL SIGNS: Blood pressure 97/61, pulse was last documented at 116, it is actually now 103, respirations are 16, O2 sat 97%, temperature was 99.5. HEENT: Head: Atraumatic, normocephalic. Eyes: EOMs are intact. Sclerae anicteric and not pale. Throat: Oral mucosa appears to be moist. No oropharyngeal erythema. NECK: Supple. LUNGS: Clear to auscultation. Diminished in the bases. Equal diaphragmatic expansion. HEART: Sounds S1, S2. Regular rate and rhythm. No murmurs, rubs, or gallops. ABDOMEN: Soft, flat, nontender. Bowel sounds present. She does have a significant amount of ascites. She is a little tender in the epigastric area. EXTREMITIES: She had +4 pitting edema bilaterally. She had 5/5 strength. NEUROLOGIC: She is awake, alert, and oriented x3. Tongue midline. Contamination Consultant are equal. No gross focal deficits. SKIN: Intact. DIAGNOSTIC STUDIES/LAB DATA: WBC of 5.0, RBC of 2.73, hemoglobin of 8.5, hematocrit 25, which is near baseline, platelet count of 76,000, near the baseline. INR 1.9, which is near baseline. Sodium 124, which looking back this is right where she typically runs, her potassium is 2.5, chloride of 90, bicarb 23, BUN 13, creatinine 1.33, the glucose is 95, lactate 2.6, calcium 7.6. Total bili 3.9, which is right near the baseline, the AST 83, ALT 28, alk phos 97, ammonia 63. Troponin 0.03. Lipase of 18. Albumin of 1.9. Serum alcohol negative. She did have a chest x-ray that is pending. Old medical records were reviewed. ASSESSMENT AND PLAN: Mrs. Aguirre is a 56-year-old female patient with multiple medical problems, coming into the ED today with complaints again initially of abnormal lab work. Her sodium was 121 yesterday, it is now back up to 124, but it was noted that she had lab abnormalities. She is now complaining of ascites and having some abdominal discomfort. She will be admitted under inpatient status for: 1. Liver cirrhosis with ascites. Again, I am concerned that she was having some subtle abdominal pain and she has some discomfort from it. I want to make sure she does not have SBP, which certainly may have rescued some of her liver tests and she does not have fever with a white count though, but she needs a therapeutic and diagnostic paracentesis. I am also going to check her for flu because of the cough and chest x-ray because of recent pneumonia. I am going to continue the Aldactone. We will replace her potassium, try to get that up to around 4. We will diurese her as needed. I would like to see that sodium a little bit higher before we get a back on her Bumex and we will continue to follow her closely and I did put her on empirically Rocephin 2 g until we were able to send off body fluids, cell counts, and cultures. 2. Multiple myeloma. Follow with her primary. 3. History of EtOH abuse. I did place an order for social work consult. 4. Thrombocytopenia. Platelet counts are stable. 5. Anasarca. Again, we will continue the spironolactone. We will do the paracentesis and then we will get her back on her diuretics and diuresis. 6. History of chronic obstructive pulmonary disease. Continue her Ellipta and p.r.n. nebs. 7. History of arthritis. Continue supportive care. 8. Hypertension. Her blood pressure actually is hypotensive. We will continue her midodrine for the time being. We will continue to follow. 9. Hyponatremia. Again, this is probably secondary to liver cirrhosis, but I will send off a urine osmo, serum osmo, urine sodium as well to help us delineate where this hyponatremia is coming from. 10. DVT prophylaxis. I am just going to put her on SCDs at this point as she is thrombocytopenic and INR is 1.9. 11. Code status. Full code. 12. Fluids, electrolytes, and nutrition. She can have a regular diet. TIME SPENT: On admission was 60 minutes, greater than half the time was spent face- to-face with the patient obtaining my history and physical, other half time was spent going over the plan of care with the patient and implementing plan of care. I did discuss the plan of care with my attending, Dr. King; she is in agreement. SAMIR GA NP [id number]/[facility] #: [id number] NARAYAN
[2017-07-15 20:40] LABS: EGFR Non-African American 43.5 (>60)
[2017-07-15] MEDS: Albumin Human 25%* 25 GM/100 ML BTL IV SCH (21:23)
[2017-07-15] MEDS: Omeprazole CAP* 20 MG PO SCH (21:36)
[2017-07-15] MEDS: CMCS: Midodrine (NF) 5 MG TAB PO SCH (21:36)
[2017-07-16 03:30] LABS: Urine Appearance Clear; Urine Blood Negative (Negative); Urine Color Amber; Urine Ketones Negative (Negative); Urine Protein Negative (Negative); Urine Specific Gravity 1.012 (1.010-1.030); Urine Urobilinogen Positive (Negative)
--- NOTE | 2017-07-16 05:07 | PRO ---
CC: Dr. Young * DATE OF PROCEDURE: 07/15/17 - ROOM #421 DATE OF : 60 SURGEON: Kyle Catherine MD GUILLOTINE OPERATOR: None. ANESTHESIOLOGIST: None. PRE-OP DIAGNOSIS: Ascites. POST-OP DIAGNOSIS: Ascites. PROCEDURE PERFORMED: Sonographically-guided paracentesis. INDICATIONS: The patient is a 56-year-old female with known cirrhosis, who has had previous ascites and paracentesis. She is now in the emergency room and has abdominal distention and pressure and a little dyspnea from it and I was called and asked by the hospitalist service to perform paracentesis to help relieve her symptoms. DESCRIPTION OF PROCEDURE: The patient was lying in bed, minimally dyspneic, very large distended abdomen, nontender consistent with ascites on examination. I discussed the procedure with her and she is understanding and agreeable to the procedure; therefore, bedside ultrasound was carried out and in the right upper quadrant, the fluid cavity measures about 5 to 6 cm from the abdominal wall to the liver and this was felt to be a good site for catheter insertion. The site was marked and antiseptic preparation was carried out. Sterile drapes were placed. Local anesthetic 1% lidocaine was administered and a skinny needle was used to identify the ascites fluid, then the paracentesis catheter was inserted. Sample was taken and placed in specimen vials and the hospitalist has ordered various testing for the fluid. Suction bottles were then used to evacuate the abdominal cavity and a total of about 4 L of clear yellow fluid was forth-coming. She tolerated this well. Catheter was removed. Bandage was placed. She will be admitted to the hospitalist service and will be happy to assist in the future should the need arise. [id number]/[facility] #: [id number] MTDD
[2017-07-16] MEDS: Albumin Human 25%* 25 GM/100 ML BTL IV SCH ×3 (05:47→19:17)
[2017-07-16] MEDS: Umeclidin/Vilant 62.5 MDI 62.5/25 mcg 14 INH ELLIPTA DEVICE INH SCH (07:43)
[2017-07-16 08:33] LABS: EGFR Non-African American 51.9 (>60)
[2017-07-16 08:34] LABS: ABS Basophils 0.1 10^3/ul (0-0.2); ABS Eosinophils 0.2 10^3/ul (0-0.6); ABS Lymphocytes 0.5 10^3/ul (1.0-4.8); ABS Monocytes 0.4 10^3/ul (0-0.8); ABS Neutrophils 2.7 10^3/ul (1.5-7.7); ABS Nucleated RBC 0 10^3/ul; Eosinophil % 5.1 % (0-6); Hematocrit 19 % (35-47); Hemoglobin 6.6 g/dl (12.0-16.0); Lymphocyte % 12.5 % (25-47); Mean Corpuscular HGB Conc 34 g/dl (31-36); Mean Corpuscular Hemoglobin 32 pg (27-31); Mean Corpuscular Volume 93 fL (80-97); Mean Platelet Volume 10 um3 (7.4-10.4); Nucleated Red Blood Cells % 0; Platelet Count 54 10^3/ul (150-450); Red Blood Count 2.06 10^6/ul (4.0-5.4); Red Cell Distribution Width 16 % (10.5-15); White Blood Count 3.9 10^3/ul (3.5-10.8)
[2017-07-16 08:37] LABS: INR 2.15 (0.77-1.02)
[2017-07-16] MEDS ORDERED: Potassium Chlor TAB* 20 MEQ TAB.ER PO SCH (09:00)
[2017-07-16] MEDS ORDERED: Magnesium Sulf 4 GM/100 ML IV* 4,000 MG/100 ML BAG IVPB ONE (09:00)
[2017-07-16] MEDS: KCL 10 MEQ/50 ML IVPREMIX* 10 MEQ/50 ML BAG IV SCH ×4 (09:44→18:41)
[2017-07-16] MEDS ORDERED: Furosemide IV* 10 MG/ML VIAL (40 MG) IV ONE (11:19)
--- NOTE | 2017-07-16 11:23 | PN ---
Subjective Date of Service: 07/16/17 Interval History: pt feels better. epigastric pain resolved after paracentesis. stated that she has not drunk ETOH since her [facility] stay in 06/2017 Objective Active Medications: Albuterol/Ipratropium (Duoneb (Albuterol 2.5 Mg/Ipratropium 0.5 Mg)) 1 neb INH TID PRN PRN Reason: SHORTNESS OF BREATH Folic Acid (Folvite Tab*) 1 mg PO DAILY [facility] Ceftriaxone Sodium 2 gm/ (Sodium Chloride) 100 mls @ 200 mls/hr IVPB Q24H [facility] Last Admin: 07/15/17 16:17 Dose: 200 mls/hr Albumin Human (Albumin Human 25%*) 25 gm in 100 mls @ 16 mls/hr IV Q6H [facility] PRN Reason: 4 GM/HR Last Admin: 07/16/17 05:47 Dose: 16 mls/hr Magnesium Sulfate (Magnesium Sulf 4 Gm/100 Ml Iv*) 4,000 mg in 100 mls @ 33.333 mls/hr IVPB ONCE ONE Stop: 07/16/17 11:59 Potassium Chloride (Potassium Chloride 10 Meq/50 Ml Ivpremix*) 10 meq in 50 mls @ 50 mls/hr IV Q1H ROSAL[facility] Stop: 07/16/17 12:59 Last Admin: 07/16/17 09:44 Dose: 50 mls/hr Lactulose (Lactulose*) 30 ml PO BID [facility] Last Admin: 07/15/17 21:36 Dose: 30 ml Magnesium Oxide (Magox 400 Tab*) 800 mg PO DAILY [facility] Midodrine (Midodrine (Nf)) 10 mg PO TID [facility] PRN Reason: Protocol Last Admin: 07/15/17 21:36 Dose: 10 mg Omeprazole (Prilosec Cap*) 20 mg PO BID [facility] Last Admin: 07/15/17 21:36 Dose: 20 mg Ondansetron HCl (Zofran Inj*) 4 mg IV Q6H PRN PRN Reason: NAUSEA Last Admin: 07/15/17 21:50 Dose: 4 mg Potassium Chloride (Klor Con Er Tab*) 20 meq PO DAILY [facility] Spironolactone (Aldactone Tab*) 25 mg PO DAILY [facility] Thiamine HCl (Vitamin B-1 Tab*) 100 mg PO DAILY [facility] Umeclidinium/Vilanterol (Anoro 62.5/25 Ellipta Device (Nf)) 2 inh INH DAILY [facility] Last Admin: 07/16/17 07:43 Dose: Not Given Vital Signs - 8 hr 07/16/17 07/16/17 07/16/17 05:27 05:51 07:40 Temperature 98.1 F 98.1 F 98.1 F Pulse Rate 89 76 76 Respiratory 16 16 16 Rate Blood Pressure 89/47 96/49 95/41 (mmHg) O2 Sat by Pulse 95 96 98 Oximetry Oxygen Devices in Use Now: None Appearance: 56 yo f in nAD, aAOx3 Eyes: PERRLA, - - +scleral icterus Ears/Nose/Mouth/Throat: NL Teeth, Lips, Gums, Mucous Membranes Moist Neck: NL Appearance and Movements; NL JVP, Trachea Midline Respiratory: Symmetrical Chest Expansion and Respiratory Effort, - - coarse breath sounds b/l upper lung keenan Cardiovascular: NL Sounds; No Murmurs; No JVD, RRR Abdominal: - - soft ascites present, liver not palpable Lymphatic: No Cervical Adenopathy Extremities: No Clubbing, Cyanosis, - - b/l ankle edema -trace r>L Skin: No Nodules or Sclerosis, - - jaundice+ Neurological: Alert and Oriented x 3, NL Muscle Strength and Tone Result Diagrams: 07/16/17 08:08 07/16/17 08:08 Additional Lab and Data: Lab Results 07/15/17 07/15/17 07/15/17 Range/Units 10:36 10:36 10:36 WBC 5.0 (3.5-10.8) 10^3/ul RBC 2.73 L (4.0-5.4) 10^6/ul Hgb 8.5 L (12.0-16.0) g/dl Hct 25 L (35-47) % MCV 93 (80-97) fL MCH 31 (27-31) pg MCHC 34 (31-36) g/dl RDW 17 H (10.5-15) % Plt Count 76 L (150-450) 10^3/ul MPV 10 (7.4-10.4) um3 Neut % (Auto) 79.8 (38-83) % Lymph % (Auto) 10.3 L (25-47) % Lyman % (Auto) 5.9 (1-9) % Eos % (Auto) 3.3 (0-6) % Baso % (Auto) 0.7 (0-2) % Absolute Neuts (auto) 4.0 (1.5-7.7) 10^3/ul Absolute Lymphs (auto) 0.5 L (1.0-4.8) 10^3/ul Absolute Monos (auto) 0.3 (0-0.8) 10^3/ul Absolute Eos (auto) 0.2 (0-0.6) 10^3/ul Absolute Basos (auto) 0 (0-0.2) 10^3/ul Absolute Nucleated RBC 0 10^3/ul Nucleated RBC % 0.2 INR (Anticoag Therapy) 1.90 H (0.77-1.02) Sodium Pending Potassium Pending Chloride Pending Carbon Dioxide Pending Anion Gap Pending BUN Pending Creatinine Pending Est GFR ( Amer) Pending Est GFR (Non-Af Amer) Pending BUN/Creatinine Ratio Pending Glucose Pending Lactic Acid (0.5-2.0) mmol/L Calcium Pending Total Bilirubin Pending AST Pending ALT Pending Alkaline Phosphatase Pending Troponin I 0.03 (<0.04) ng/mL C-Reactive Protein Pending Total Protein Pending Albumin Pending Globulin Pending Albumin/Globulin Ratio Pending Lipase Pending Serum Alcohol Pending 07/15/17 Range/Units 10:36 WBC (3.5-10.8) 10^3/ul RBC (4.0-5.4) 10^6/ul Hgb (12.0-16.0) g/dl Hct (35-47) % MCV (80-97) fL MCH (27-31) pg MCHC (31-36) g/dl RDW (10.5-15) % Plt Count (150-450) 10^3/ul MPV (7.4-10.4) um3 Neut % (Auto) (38-83) % Lymph % (Auto) (25-47) % Lyman % (Auto) (1-9) % Eos % (Auto) (0-6) % Baso % (Auto) (0-2) % Absolute Neuts (auto) (1.5-7.7) 10^3/ul Absolute Lymphs (auto) (1.0-4.8) 10^3/ul Absolute Monos (auto) (0-0.8) 10^3/ul Absolute Eos (auto) (0-0.6) 10^3/ul Absolute Basos (auto) (0-0.2) 10^3/ul Absolute Nucleated RBC 10^3/ul Nucleated RBC % INR (Anticoag Therapy) (0.77-1.02) Sodium Potassium Chloride Carbon Dioxide Anion Gap BUN Creatinine Est GFR ( Amer) Est GFR (Non-Af Amer) BUN/Creatinine Ratio Glucose Lactic Acid 2.6 H* (0.5-2.0) mmol/L Calcium Total Bilirubin AST ALT Alkaline Phosphatase Troponin I (<0.04) ng/mL C-Reactive Protein Total Protein Albumin Globulin Albumin/Globulin Ratio Lipase Serum Alcohol Microbiology and Other Data: Microbiology 07/15/17 16:00 Gram Stain - Final Body Fluid 07/15/17 16:00 Influenza Types A,B Antigen (PONCHO) - Final Nasal Specimen received for Influenza A/B Molecular testing Assess/Plan/Problems-Billing Assessment: 56 yo F with h/o MM, ETOH liver cirrhosis presents with tense ascites - Patient Problems (1) Cytopenia Comment: Anemia, throbocytopenia, borderline WBC all likely due to cirrhosis. today Hb down to 6.6 , will transfuse 1 U PRBC , no evidence, or symptoms of bleeding stool occult- (2) Hyponatremia Comment: chronic , due to liver cirrhosis, cont to monitor (3) Liver cirrhosis, alcoholic Comment: cont lactulose, aldactone, midodrine (4) Ascites Comment: as per labs-due to portal HTN s/p 4 L of fluid removed on 07/15/17, no evidence of SBP, will d/c recephin , cont Bactrim for SBP prophylaxis cont albumin infusion and will tx with IV Lasix today (5) LEE (acute kidney injury) Comment: mild creat elevation due to diuretic use, at this point will cont aldactone and Lasix and monitor closely (6) DVT prophylaxis Comment: - Pharmacological prophylaxis contraindicated due to severe thrombocytopenia. - SCDs. Status and Disposition: inpatient
[2017-07-16] MEDS: Magnesium Oxide TAB* 400 MG PO SCH (11:32)
[2017-07-16] MEDS: Folic Acid TAB* 1 MG PO SCH (11:32)
[2017-07-16] MEDS: Thiamine TAB* 100 MG TAB PO SCH (11:32)
[2017-07-16] MEDS: CMCS: Midodrine (NF) 5 MG TAB PO SCH ×3 (11:33→20:07)
[2017-07-16] MEDS: Omeprazole CAP* 20 MG PO SCH ×2 (11:33→20:07)
[2017-07-16] MEDS: Spironolactone TAB* 25 MG PO SCH (11:33)
[2017-07-17] MEDS ORDERED: Potassium Chlor TAB* 20 MEQ TAB.ER PO SCH (08:30)
[2017-07-17] MEDS ORDERED: Sulfamethox/Trimethoprim DS 800/160* TAB PO SCH (09:00)
[2017-07-17] MEDS: Umeclidin/Vilant 62.5 MDI 62.5/25 mcg 14 INH ELLIPTA DEVICE INH SCH (09:23)
[2017-07-17] MEDS: Magnesium Oxide TAB* 400 MG PO SCH (11:24)
[2017-07-17] MEDS: Thiamine TAB* 100 MG TAB PO SCH (11:24)
[2017-07-17] MEDS: Folic Acid TAB* 1 MG PO SCH (11:25)
[2017-07-17] MEDS: Omeprazole CAP* 20 MG PO SCH (11:25)
[2017-07-17] MEDS: CMCS: Midodrine (NF) 5 MG TAB PO SCH ×2 (11:25→15:56)
[2017-07-17] MEDS: Spironolactone TAB* 25 MG PO SCH (11:26)
[2017-07-17 11:31] LABS: ABS Basophils 0 10^3/ul (0-0.2); ABS Eosinophils 0.2 10^3/ul (0-0.6); ABS Lymphocytes 0.5 10^3/ul (1.0-4.8); ABS Monocytes 0.4 10^3/ul (0-0.8); ABS Neutrophils 4.2 10^3/ul (1.5-7.7); ABS Nucleated RBC 0 10^3/ul; Eosinophil % 3.2 % (0-6); Hematocrit 24 % (35-47); Hemoglobin 8.5 g/dl (12.0-16.0); Lymphocyte % 10.2 % (25-47); Mean Corpuscular HGB Conc 35 g/dl (31-36); Mean Corpuscular Hemoglobin 32 pg (27-31); Mean Corpuscular Volume 91 fL (80-97); Mean Platelet Volume 9 um3 (7.4-10.4); Nucleated Red Blood Cells % 0.2; Platelet Count 60 10^3/ul (150-450); Red Blood Count 2.67 10^6/ul (4.0-5.4); Red Cell Distribution Width 17 % (10.5-15); White Blood Count 5.3 10^3/ul (3.5-10.8)
[2017-07-17 11:44] LABS: EGFR Non-African American 59.4 (>60)
[2017-07-17] MEDS ORDERED: KCL 10 MEQ/50 ML IVPREMIX* 20 MEQ/100 ML BAG IV ONE (11:53)
[2017-07-17] MEDS ORDERED: Potassium Chlor TAB* 20 MEQ TAB.ER PO ONE (11:53)
[2017-07-17] MEDS ORDERED: Potassium Chloride LIQUID* 20 MEQ PACKET PO ONE (12:13)
[2017-07-17 15:46] VITALS: BP 96/55
--- NOTE | 2017-07-17 21:14 | DS ---
CC: Dr. Young * DISCHARGE SUMMARY: DATE OF ADMISSION: 07/15/17 DATE OF DISCHARGE: 07/17/17 DISCHARGE DIAGNOSES: 1. Mild hepatic encephalopathy. 2. Pancystitis, status post paracentesis. SECONDARY DIAGNOSES: 1. Alcoholic liver disease and chronic liver failure. 2. History of multiple myeloma. 3. Alcohol abuse. The patient stopped drinking approximately a month ago. 4. History of chronic pancytopenia due to above liver disease. 5. Chronic obstructive pulmonary disease. 6. Anasarca. 7. Arthritis. 8. Hypertension. 9. Tonsillectomy in the past. MEDICATIONS AT DISCHARGE: Include: 1. DuoNeb 3 times a day p.r.n. 2. Fosamax 70 mg weekly. 3. Bumex increased to 1 mg every other day. She used to take it twice a week. 4. Calcium carbonate 1250 mg daily. 5. Vitamin D3 2000 units daily. 6. Folic acid 1 mg daily. 7. Lactulose 30 mL daily. 8. Maalox 400 mg daily. 9. Midodrine 10 mg 2 times a day. 10. Lopressor 20 mg b.i.d. 11. Potassium chloride liquid 40 mEq daily. 12. Aldactone 25 mg daily. 13. Bactrim DS 1 tablet daily. 14. Thiamine 100 mg daily. 15. Anoro Ellipta 62.5/25 two inhalations daily. Patient is recommended to follow up with Dr. Young in approximately 3 days with a blood work for comprehensive metabolic panel to be drawn. Patient was offered visiting nurse services, but she declined. LABORATORY DATA AT DISCHARGE: Included, on 07/17/17, sodium of 125, potassium of 2.7, chloride 97, carbon dioxide 21, BUN 8, creatinine 0.97. Liver function tests showed bilirubin of 3.6, AST of 65, ALT of 22, ammonia of 66, magnesium was 1.8. CBC: White blood cell count of 5.3, hemoglobin of 8.5, hematocrit of 24, and platelets of 60. Please note that patient received 1 unit of packed red blood cell transfusion a day prior to discharge. CONSULTATIONS DURING THE HOSPITAL STAY: Included Dr. Catherine from Surgery for paracentesis. PROCEDURES PERFORMED: Paracentesis performed on 07/15/17. Four liters of straw - colored fluid was removed. The appearance was clear. The wbc were 37, rbc 18 , 17% neutrophils, and 13 lymphocytes. Please note that although patient's potassium level was 2.7, on the day of discharge she received 20 mEq of IV potassium and 60 mEq of liquid p.o. potassium before discharge. She had been quite resistant to replacing her potassium and she had refused potassium replacement in the past. Eventually, she agreed to use liquid potassium at home. HOSPITALIZATION COURSE: Nicole Aguirre is a 56-year-old female with a history of alcoholism and alcoholic liver cirrhosis and liver failure, who presented complaining of epigastric abdominal pain and was noted to have pancystitis. She required paracentesis and originally she was evaluated for possibility of small bowel spontaneous bacterial peritonitis. Four liters of straw-colored fluid was removed from patient, ascitic fluid, without any evidence of spontaneous bacterial peritonitis. Due to large volume paracentesis performed, patient stayed overnight for albumin infusion and additional diuretic use. She did rather well post paracentesis, although she complained of fluid leaking from the paracentesis sight in her right upper quadrant, for which she needed to have applied colostomy bag and she is going to be discharged home to use it as needed. Throughout patient's hospital stay, it became apparent that patient is noncompliant with her medications. She had not been using lactulose as it appears and she was quite encephalopathic at admission with ammonia level over 100. She also has 2 prescriptions for potassium to be used at home, but stated that she does not have potassium pills, and even if she had them, she would not use them. At this point, liquid potassium was prescribed. At discharge, her bumetanide is going to be increased to every other day. Also increased her potassium supplement to 40 mEq daily. She is going to be continued on Bactrim for spontaneous bacterial peritonitis for prophylaxis as well as midodrine for hypotension in this patient with liver failure. I informed the patient that likely she will require repeated paracentesis, but she does not need to be admitted every time that happens. That likely can be done at outpatient setting. Patient stated Dr. Young already referred patient to a law firm consultant for that evaluation. At discharge, patient recommended to follow up with Dr. Young as mentioned above. Patient was offered visiting nurse association services for followup, but she refused. She stated that she is quite antisocial and her and her Yousuf dog do not like that much of company. PHYSICAL EXAM AT THE TIME OF DISCHARGE: Included blood pressure of 94/41, heart rate of 80 and regular, respiratory rate 17, oxygen saturation 97% on room air, temperature of 98.0. General: Patient is a pleasant 56-year-old female, who is in no acute distress. Alert, awake, and oriented x3. HEENT: Head atraumatic, normocephalic. Eyes: Pupils are equal and reactive to light and accommodation. Oropharynx clear. Mucosa moist. Neck: Supple. No JVD, no bruits bilaterally. Cardiovascular: Regular rate and rhythm. No murmur. Abdomen: Ascites present. Soft. Bowel sounds are present in all 4 quadrants. Hepatomegaly not palpated. Patient has a small fluid leak in the area of the paracentesis on the right side of her abdomen. Extremities: There is trace bilateral ankle edema. Pulses +2 bilaterally. No clubbing or cyanosis. On evaluation of the skin, jaundice evident. Patient has areas about her forearms after venipunctures. On neuro evaluation, speech is clear. Cranial nerves II through XII grossly intact. Motor strength is 5/5 bilaterally. Please note that this is a short summary of patient's hospital stay. Please refer to further medical records for details. TIME SPENT: Approximately 45 minutes was spent on patient's discharge. [id number]/[facility] #: [id number] NARAYAN
== END 2017-07-17 17:30 | disposition home or self-care (01) | DRG 432 ==
LOC: ED 10:06 → MED 14:48
PROVIDERS: ADMIT Internal Medicine; ATTEND Internal Medicine
PROC: 0W9G3ZZ Drainage of Peritoneal Cavity, Percutaneous Approach (ICD-10-PCS; principal; 2017-07-15)
PROC: 30233N1 Transfusion of Nonautologous Red Blood Cells into Peripheral Vein, Percutaneous Approach (ICD-10-PCS; 2017-07-16)
DX: K70.40 Alcoholic hepatic failure without coma (principal); K65.2 Spontaneous bacterial peritonitis; K70.31 Alcoholic cirrhosis of liver with ascites; D61.818 Other pancytopenia; N17.9 Acute kidney failure, unspecified; C90.00 Multiple myeloma not having achieved remission; D69.6 Thrombocytopenia, unspecified; N30.80 Other cystitis without hematuria; E87.1 Hypo-osmolality and hyponatremia; F10.20 Alcohol dependence, uncomplicated; F17.210 Nicotine dependence, cigarettes, uncomplicated; D75.9 Disease of blood and blood-forming organs, unspecified; Y90.0 Blood alcohol level of less than 20 mg/100 ml; J44.9 Chronic obstructive pulmonary disease, unspecified; R60.1 Generalized edema; M19.90 Unspecified osteoarthritis, unspecified site; I10 Essential (primary) hypertension; Z79.899 Other long term (current) drug therapy; Z82.49 Family history of ischemic heart disease and other diseases of the circulatory system; Z82.0 Family history of epilepsy and other diseases of the nervous system
CPT/HCPCS: 36415; 71045; 80048; 80053; 80320; 81003; 82140; 82533; 82945; 83013; 83605; 83690; 83735; 83930; 83935; 83986; 84157; 84300; 84302; 84443; 84484; 85025; 85027; 85610; 86140; 86850; 86900; 86901; 86922; 87040; 87205; 87502; 89051; 99406; A9270-GY; G0480; J0696; J1940; J2405; J3475; J3480; P9040; P9047

== ENCOUNTER 2017-08-03 12:20 | Inpatient (IN) | payer MEDICARE, MEDICAID ==
[2017-08-03 13:33] LABS: Hematocrit 26 % (35-47); Hemoglobin 8.7 g/dl (12.0-16.0); Mean Corpuscular HGB Conc 34 g/dl (31-36); Mean Corpuscular Hemoglobin 31 pg (27-31); Mean Corpuscular Volume 93 fL (80-97); Mean Platelet Volume 9 um3 (7.4-10.4); Platelet Count 81 10^3/ul (150-450); Red Blood Count 2.77 10^6/ul (4.0-5.4); Red Cell Distribution Width 18 % (10.5-15); White Blood Count 7.5 10^3/ul (3.5-10.8)
[2017-08-03 13:37] LABS: EGFR Non-African American 62.4 (>60)
[2017-08-03 13:41] LABS: INR 1.54 (0.77-1.02)
[2017-08-03] MEDS ORDERED: NS 0.9% 500 ML* 500 ML IV ONE (13:57)
[2017-08-03 14:41] LABS: ABS Basophils 0.1 10^3/ul (0-0.2); ABS Eosinophils 0 10^3/ul (0-0.6); ABS Lymphocytes 0.7 10^3/ul (1.0-4.8); ABS Monocytes 0.7 10^3/ul (0-0.8); ABS Nucleated RBC 0 10^3/ul; Eosinophil % 0 % (0-6); Lymphocyte % 8.7 % (25-47); Nucleated Red Blood Cells % 0.1
[2017-08-03] MEDS ORDERED: Ondansetron INJ* 2 MG/ML VIAL IV PRN (14:45)
[2017-08-03] MEDS ORDERED: Albuterol/Ipratropium NEB.SOL* Albuterol 2.5 MG/Ipratropium 0.5 MG 3 ML INH PRN (14:49)
[2017-08-03] MEDS ORDERED: CMCS:Midodrine (NF) 5 MG TAB PO SCH (15:00)
[2017-08-03] MEDS: NS 0.9% 1000 ML* 1,000 ML IV SCH (15:47)
[2017-08-03 17:42] LABS: EGFR Non-African American 64.8 (>60)
[2017-08-03] MEDS: CMCS:Midodrine (NF) 5 MG TAB PO SCH ×2 (17:51→22:47)
--- NOTE | 2017-08-03 20:24 | HP ---
CC: Dr. Young; Dr. Wray HISTORY AND PHYSICAL: ADDENDUM: ASSESSMENT AND PLAN: 1. Hyponatremia. When her blood pressure tolerates, we will try to get her back on her diuretics to alleviate the anasarca, but short term, she definitely does need a paracentesis and she looks a little dry right now, so I am hopeful with fluids that sodium will come up. We will follow that closely and put her in the ICU. 2. Multiple myeloma: Follow with her primary. 3. History of liver cirrhosis: Again, continue the , continue her meds, and lactulose particularly as well. Get her back on her diuretics when her pressure is able to tolerate. We are going to hydrate her for now and then get her back on Bumex and spironolactone when able. 4. History of EtOH abuse: Not an active issue currently. Continue thiamine and folic acid. 5. Anasarca: Again, when her blood pressure is able to tolerate with , I will start her back on her diuretics to help her. 6. History of hypertension: Again, at this point, she is actually hypotensive. We will follow. 7. Chronic obstructive pulmonary disease: Continue her nebs as prescribed. 8. Thrombocytopenia. Platelets are at her baseline. We will follow. 9. DVT prophylaxis. I am just going to put her on SCDs. 10. Code status: Full code. 11. Fluids, electrolytes, and nutrition. She can have a low-protein diet and Ensure t.i.d. TIME SPENT: On admission was approximately 60 minutes, greater than half the time was spent [id number] with the patient obtaining my history and physical, other half time was spent going over the plan of care with the patient and implementing plan of care. I did discuss the plan of care with my attending, Dr. King; she is in agreement. JOHN YOUNG, VANESSA [id number]/[facility] #: [id number] MTDD
[2017-08-03] MEDS: Omeprazole CAP* 20 MG PO SCH (20:56)
[2017-08-03 22:36] LABS: Urine Appearance Clear; Urine Blood Negative (Negative); Urine Color Amber; Urine Ketones Trace (Negative); Urine Protein Negative (Negative); Urine Specific Gravity 1.019 (1.010-1.030); Urine Urobilinogen Negative (Negative)
[2017-08-04] MEDS: NS 0.9% 1000 ML* 1,000 ML IV SCH (02:25)
[2017-08-04 05:50] LABS: Hematocrit 20 % (35-47); Hemoglobin 6.9 g/dl (12.0-16.0); Mean Corpuscular HGB Conc 34 g/dl (31-36); Mean Corpuscular Hemoglobin 32 pg (27-31); Mean Corpuscular Volume 92 fL (80-97); Mean Platelet Volume 9 um3 (7.4-10.4); Platelet Count 75 10^3/ul (150-450); Red Cell Distribution Width 18 % (10.5-15); White Blood Count 6.1 10^3/ul (3.5-10.8)
[2017-08-04 06:04] LABS: EGFR Non-African American 63.1 (>60)
[2017-08-04 06:33] LABS: ABS Basophils 0.1 10^3/ul (0-0.2); ABS Eosinophils 0 10^3/ul (0-0.6); ABS Lymphocytes 0.8 10^3/ul (1.0-4.8); ABS Monocytes 0.9 10^3/ul (0-0.8); ABS Neutrophils 4.3 10^3/ul (1.5-7.7); ABS Nucleated RBC 0 10^3/ul; Eosinophil % 0 % (0-6); Lymphocyte % 13.5 % (25-47); Nucleated Red Blood Cells % 0.1
[2017-08-04] MEDS: Umeclidin/Vilant 62.5 MDI 62.5/25 mcg 14 INH ELLIPTA DEVICE INH SCH (09:32)
--- NOTE | 2017-08-04 09:32 | HP ---
CONTINUATION ADDENDUM NOW INCLUDED ON THIS REPORT CC: Dr. Young; Dr. Wray * HISTORY AND PHYSICAL: DATE OF ADMISSION: 08/03/17 ATTENDING PROVIDER: Dr. King * (DICTATED BY JOHN YOUNG NP) CHIEF COMPLAINT: 1. Abdominal discomfort. 2. "My abdomen is larger." HISTORY OF PRESENT ILLNESS: Ms. Aguirre is a 56-year-old female patient. She has a history of multiple myeloma, history of cirrhosis, history of ETOH abuse, anasarca, hypertension, COPD, arthritis, and thrombocytopenia. She comes into the ED today. She says she has been taking her meds with the exception of her Bumex. She said she cannot get that from the pharmacy, but she said she has noticed over the last couple of weeks since discharge her abdomen has progressively gotten bigger. It is more painful when she tries to stand up. She is uncomfortable. She says she cannot lie flat because she has entire weight of her stomach that is pushing up on to her chest. She says it is the biggest, as it was last time when she was here before she had her last paracentesis. She was concerned today because she was having discomfort, so she came into the hospital hopeful for another paracentesis. She denies having any chest pain. No shortness of breath. There is only abdominal discomfort. There is no pain, no fevers, no chills. She denied having any urinary symptoms. There has been no URI symptoms. She says that she has certainly gotten more swollen in the extremities. She says she feels more jaundiced and she says her eyes look more yellow. She was concerned that she was again reaccumulating fluids, so that is why she came into the hospital today. It was ultimately noted on labs that she appeared to have a hyponatremia. Her lactic acid was mildly elevated, there was concern because of the hyponatremia and massive ascites. We were asked to evaluate for admission. PAST MEDICAL HISTORY: Significant for: 1. Multiple myeloma. 2. Cirrhosis. 3. ETOH abuse. 4. History of anasarca. 5. Hypertension. 6. COPD. 7. Arthritis. 8. Thrombocytopenia. PAST SURGICAL HISTORY: 1. She has had a tonsillectomy. 2. She has had an appendectomy. 3. She recently had a paracentesis done here. MEDICATIONS: Home meds include: 1. Anoro 2 inhalations daily. 2. Bumex 1 mg p.o. every other day, but she says she has not been taking. 3. Midodrine 10 mg p.o. t.i.d. 4. Lactulose 30 cc p.o. daily. 5. Vitamin D3 2000 units daily. 6. Thiamine 100 mg daily. 7. Magnesium 400 mg daily. 8. Calcium carbonate 1250 mg daily. 9. Spironolactone 25 mg a day. 10. Folic acid 1 mg daily. 11. Fosamax 70 mg p.o. weekly. 12. DuoNeb 1 neb inhaled t.i.d. as needed. 13. Bactrim 1 tablet p.o. daily. 14. Potassium 40 mEq a day. 15. Prilosec 20 mg p.o. b.i.d. FAMILY HISTORY: Her father has a history of hypertension. She says mother has a history of neuropathy. SOCIAL HISTORY: She still continues to smoke about 5 cigarettes a day. She has been smoking since she was 13. She says her last alcoholic beverage was in June with her previous admission. She is . Surrogate decision maker is her parents. REVIEW OF SYSTEMS: There is no documented fever. She does admit to having a significant weight gain. She denies having any ear discharge. She denies having any rhinorrhea. There is no sore throat. There was no thyroid enlargement. Denied having any chest discomfort. There is diffuse abdominal discomfort, more positional. When she changes position, it is painful, particularly when she is lying down or stands up. She denies any nausea or vomiting. There has been no dysuria. There has been no frequency. There has been no seizure. No loss of consciousness. No pruritus. There has been no skin ulcerations. Review of 14 systems completed, all others negative. PHYSICAL EXAMINATION GENERAL: At this time, Ms. Aguirre is a 56-year-old female patient, she is chronically ill-appearing. She does not appear to be in any acute distress. VITAL SIGNS: Her blood pressure was 89/63, pulse 114, respirations were 13, O2 sat 98%, temperature 98.0. HEENT: Head: Atraumatic. Eyes: Sclerae were noted to be icteric. Pupils reactive to light. Throat: Oral mucosa appears to be dry. No oropharyngeal erythema. NECK: Supple. LUNGS: Clear to auscultation bilaterally. No wheezes, rales, or rhonchi. HEART: Sounds S1 and S2. Regular rate and rhythm. No murmurs, rubs, or gallops. ABDOMEN: Again, there was massive ascites noted. It was nondistended. There was dull percussion throughout. She is nontender. Bowel sounds are present. EXTREMITIES: She had +4 pitting edema up to her thighs. Moving all 4 extremities with 5/5 strength. NEUROLOGIC: The patient is awake, alert, oriented x3. Tongue midline. Crm Campaign Manager are equal. No gross focal deficits. SKIN: Intact. DIAGNOSTIC STUDIES/LAB DATA: WBC 7.5, RBC of 2.77, hemoglobin 8.7, hematocrit 26, platelet count was 81,000 which is right near her baseline. INR 1.54, PTT 39.2. Her sodium was 117, previously it had been noted to be in the mid 120s. Her potassium was 4.8, chloride was 88, BUN was 22, creatinine of 0.93, glucose 135, lactate 2.3, calcium 8.9. Total bilirubin of 5.6, AST 75, ALT 34. Her alk phos was 104, ammonia was 52, CRP was 17, albumin was 2, the lipase was 33. Old medical records were reviewed. ASSESSMENT AND PLAN: Ms. Aguirre is a 56-year-old female patient with a complex medical history, coming into the ER today with complaints of increasing abdominal girth, increasing discomfort, particularly with position change and lying flat. The patient came into the ED today, was found to be hyponatremic. The patient will be admitted under inpatient status for: 1. Hyponatremia. I suspect this is secondary to the patient's liver cirrhosis. Unfortunately, I cannot diurese her, she does look to be a little bit intravascularly dry. I am going to go ahead and give her some fluids, follow her hyponatremia closely. We will get a urine osmo, serum osmo, TSH, and cortisol. If her blood pressure increases, then I would consider diuresing her to help with the anasarca. When the patient's blood pressure is able, we will get her back on her diuretics. CONTINUATION ADDENDUM: ASSESSMENT AND PLAN: 1. Hyponatremia. When her blood pressure tolerates, we will try to get her back on her diuretics to alleviate the anasarca, but short term, she definitely does need a paracentesis and she looks a little dry right now, so I am hopeful with fluids that sodium will come up. We will follow that closely and put her in the ICU. 2. Multiple myeloma: Follow with her primary. 3. History of liver cirrhosis: Again, continue her meds, and lactulose particularly as well. Get her back on her diuretics when her pressure is able to tolerate. We are going to hydrate her for now and then get her back on Bumex and spironolactone when able. 4. History of EtOH abuse: Not an active issue currently. Continue thiamine and folic acid. 5. Anasarca: Again, when her blood pressure is able to tolerate , I will start her back on her diuretics to help her. 6. History of hypertension: Again, at this point, she is actually hypotensive. We will follow. 7. Chronic obstructive pulmonary disease: Continue her nebs as prescribed. 8. Thrombocytopenia. Platelets are at her baseline. We will follow. 9. DVT prophylaxis. I am just going to put her on SCDs. 10. Code status: Full code. 11. Fluids, electrolytes, and nutrition. She can have a low-protein diet and Ensure t.i.d. TIME SPENT: On admission was approximately 60 minutes, greater than half the time was spent [id number] with the patient obtaining my history and physical, other half time was spent going over the plan of care with the patient and implementing plan of care. I did discuss the plan of care with my attending, Dr. King; she is in agreement. JOHN YOUNG, VANESSA [id number]/[facility] #: [id number]/[facility] #: [id number] NARAYAN
[2017-08-04] MEDS: CMCS:Midodrine (NF) 5 MG TAB PO SCH ×3 (09:40→23:12)
[2017-08-04] MEDS: Folic Acid TAB* 1 MG PO SCH (09:44)
[2017-08-04] MEDS: Potassium Chloride LIQUID* 20 MEQ PACKET PO SCH (09:44)
[2017-08-04] MEDS: Omeprazole CAP* 20 MG PO SCH ×2 (09:44→21:34)
[2017-08-04] MEDS: Thiamine TAB* 100 MG TAB PO SCH (09:45)
[2017-08-04] MEDS ORDERED: NS 0.9% 500 ML* 500 ML IV ONE ×3 (09:45→17:12)
[2017-08-04] MEDS: Magnesium Oxide TAB* 400 MG PO SCH (09:45)
[2017-08-04] MEDS ORDERED: Albumin Human 25%* 50 GM/200 ML BTL IV ONE ×2 (10:00→10:22)
[2017-08-04 12:37] LABS: EGFR Non-African American 65.6 (>60)
--- NOTE | 2017-08-04 19:02 | PN ---
Subjective Date of Service: 08/04/17 Interval History: Pt is feeling ok post paracentesis this AM. She states she has been having abdominal pain but now is improved. She denies SOB currently. When we talk about how ill she is she states "just let me ." Objective Active Medications: Albuterol/Ipratropium (Duoneb (Albuterol 2.5 Mg/Ipratropium 0.5 Mg)) 1 neb INH TID PRN PRN Reason: SHORTNESS OF BREATH Folic Acid (Folvite Tab*) 1 mg PO DAILY [facility] Last Admin: 08/04/17 09:44 Dose: 1 mg Lactulose (Lactulose*) 30 ml PO DAILY [facility] Last Admin: 08/04/17 10:28 Dose: 30 ml Magnesium Oxide (Magox 400 Tab*) 400 mg PO DAILY [facility] Last Admin: 08/04/17 09:45 Dose: 400 mg Midodrine (Midodrine (Nf)) 10 mg PO 0900,1800,2300 [facility] PRN Reason: Protocol Last Admin: 08/04/17 17:25 Dose: 10 mg Omeprazole (Prilosec Cap*) 20 mg PO BID [facility] Last Admin: 08/04/17 09:44 Dose: 20 mg Ondansetron HCl (Zofran Inj*) 4 mg IV Q6H PRN PRN Reason: NAUSEA Potassium Chloride (Klor-Con Liquid*) 40 meq PO DAILY [facility] Last Admin: 08/04/17 09:44 Dose: 40 meq Thiamine HCl (Vitamin B-1 Tab*) 100 mg PO DAILY [facility] Last Admin: 08/04/17 09:45 Dose: 100 mg Umeclidinium/Vilanterol (Anoro 62.5/25 Ellipta Device (Nf)) 2 inh INH DAILY [facility] Last Admin: 08/04/17 09:32 Dose: Not Given Vital Signs - 8 hr 08/04/17 08/04/17 08/04/17 11:00 11:01 11:15 Temperature Pulse Rate 104 104 104 Respiratory 12 12 14 Rate Blood Pressure 102/55 96/54 (mmHg) O2 Sat by Pulse 96 97 98 Oximetry 08/04/17 08/04/17 08/04/17 11:30 11:45 12:00 Temperature 99.2 F Pulse Rate 95 93 95 Respiratory 13 13 14 Rate Blood Pressure 89/50 86/52 90/50 (mmHg) O2 Sat by Pulse 98 97 98 Oximetry 08/04/17 08/04/17 08/04/17 12:01 12:15 12:30 Temperature Pulse Rate 98 97 100 Respiratory 12 18 16 Rate Blood Pressure 87/45 84/45 (mmHg) O2 Sat by Pulse 97 98 97 Oximetry 08/04/17 08/04/17 08/04/17 13:00 13:01 13:30 Temperature Pulse Rate 103 102 105 Respiratory 12 17 13 Rate Blood Pressure 81/45 82/46 (mmHg) O2 Sat by Pulse 95 96 95 Oximetry 08/04/17 08/04/17 08/04/17 14:00 14:01 14:30 Temperature Pulse Rate 103 103 103 Respiratory 15 16 13 Rate Blood Pressure 84/50 66/39 (mmHg) O2 Sat by Pulse 96 95 96 Oximetry 08/04/17 08/04/17 08/04/17 14:43 15:00 15:01 Temperature Pulse Rate 105 107 106 Respiratory 15 16 18 Rate Blood Pressure 89/51 86/47 (mmHg) O2 Sat by Pulse 96 95 95 Oximetry 08/04/17 08/04/17 08/04/17 15:30 16:00 16:01 Temperature 99.1 F Pulse Rate 104 109 105 Respiratory 13 13 14 Rate Blood Pressure 82/44 83/49 (mmHg) O2 Sat by Pulse 95 95 97 Oximetry 08/04/17 08/04/17 08/04/17 16:30 17:00 17:54 Temperature Pulse Rate 106 107 Respiratory 16 14 15 Rate Blood Pressure 81/53 75/38 (mmHg) O2 Sat by Pulse 99 97 Oximetry Oxygen Devices in Use Now: None Appearance: Jaundiced middle aged female sitting up in bed, NAD Eyes: - - icteric sclera Ears/Nose/Mouth/Throat: Mucous Membranes Moist Respiratory: Symmetrical Chest Expansion and Respiratory Effort, Clear to Auscultation - anteriorly Cardiovascular: NL Sounds; No Murmurs; No JVD, - - tachycardic, massive anasarca to waist Result Diagrams: 08/05/17 09:31 08/05/17 09:31 Microbiology and Other Data: Microbiology 08/04/17 08:50 Gram Stain - Final Body Fluid 08/03/17 15:36 Nasal Screen MRSA (PCR)([facility]) - Final Nasal Mrsa Negative Assess/Plan/Problems-Billing Ms Aguirre is a 56 yo F who has a h/o alcoholism with alcoholic cirrhosis/end stage liver disease who presented to the ER with c/o abdominal pain and was found to have massive ascites and hyponatremia. - Patient Problems (1) End-stage liver disease Current Visit: Yes Status: Acute Code(s): K72.90 - HEPATIC FAILURE, UNSPECIFIED WITHOUT COMA SNOMED Code(s): 540472316 Comment: The patient had 7L ascitic fluid removed AM 08/04/[address] Catherine. She has since been hypotensive. She is being given albumin to see if that helps her pressures. Fluid is cloudy. Await cell count. I explained to the patient that I am concerned that she may not survive this hospitalization. (2) Hyponatremia Current Visit: Yes Status: Acute Code(s): E87.1 - HYPO-OSMOLALITY AND HYPONATREMIA SNOMED Code(s): 91028645 Comment: This is chronic but worsened currently. Likely secondary to cirrhosis. Will monitor closely given fluid bolus. I am not able to diuresis the patient as she has no pressure to work with. (3) Anemia Current Visit: Yes Status: Acute Code(s): D64.9 - ANEMIA, UNSPECIFIED SNOMED Code(s): 115569761 Comment: Worsened today from baseline. Will transfuse 1 unit PRBC if pt will allow. (4) Thrombocytopenia Current Visit: Yes Status: Acute Code(s): D69.6 - THROMBOCYTOPENIA, UNSPECIFIED SNOMED Code(s): 162264331 Comment: Plt count is at baseline. Continue to monitor. (5) DVT prophylaxis Current Visit: Yes Status: Acute Code(s): RKD8839 - SNOMED Code(s): 818412196 Comment: SCDs (6) Patient is full code Current Visit: Yes Status: Acute Onset Date: 04/27/15 Code(s): Z78.9 - OTHER SPECIFIED HEALTH STATUS SNOMED Code(s): 437003439
--- NOTE | 2017-08-04 22:32 | OP ---
CC: Dr. Quiroga; Dr. Young * DATE OF OPERATION: 08/04/17 - ROOM #ICU-09 DATE OF : 60 SURGEON: Kyle Catherine MD AUT[employer] PARTS PROFESSIONAL: None. ANESTHESIOLOGIST: None. PRE-OP DIAGNOSIS: Ascites. POST-OP DIAGNOSIS: Ascites. OPERATIVE PROCEDURE: Sonographically guided paracentesis. INDICATIONS: The patient is a 56-year-old female known to me from previous paracentesis for her chronic ascites. She presented to the emergency room yesterday and was admitted by the hospitalist service to the ICU and I was asked to provide paracentesis. On examination, the patient's abdomen is markedly distended and tense consistent with ascites. There is no tenderness. I discussed the situation with the patient and we decided that paracentesis would be carried out. She is understanding and agreeable to the procedure. DESCRIPTION OF PROCEDURE: A bedside ultrasound was carried out. On the right side of the abdomen in the right upper quadrant, a large area of fluid was identified, which was amenable to paracentesis. This was marked. The area was then prepped and draped in a sterile fashion. Local infiltrative anesthesia of 1% lidocaine was administered and skinny needle was used to identify the paracentesis fluid. The paracentesis catheter was then placed. I attempted to do a Z-track to minimize leakage and she tolerated this well. Approximately 7500 mL of clear yellow fluid was forthcoming. Specimens were collected for laboratory and I will leave it to the hospitalist service to determine what testing they would like done. The procedure was carried out until no additional drainage was encountered and the catheter was then removed. Bandage was placed. She tolerated this well. Her blood pressure dropped a little bit at the end, but she was asymptomatic. There were no complications. No drain was left in place. [id number]/CPS #: [id number] [facility]
--- NOTE | 2017-08-04 22:59 | PN ---
Hospitalist Progress Note Date of Service: 08/04/17 Called to bedside for hypotension. Patient has been persisted hypotesive all day today. BP 88 systolic now patient cirrhosis. Pt refusing all medications, blood noted low h and h refusing an examination states leave me lilo get out of my room. I discuss with patient consequences of refusing care such as , she is able to reiterate consequences of her actions. I offered comfort care and again patient states to get out of room leave her alone. Will continue ivf and have primary team re-eval in am.
[2017-08-05] MEDS: Umeclidin/Vilant 62.5 MDI 62.5/25 mcg 14 INH ELLIPTA DEVICE INH SCH (08:19)
[2017-08-05] MEDS: Folic Acid TAB* 1 MG PO SCH (09:48)
[2017-08-05] MEDS: Omeprazole CAP* 20 MG PO SCH ×2 (09:48→22:04)
[2017-08-05] MEDS: CMCS:Midodrine (NF) 5 MG TAB PO SCH ×3 (09:49→22:05)
[2017-08-05] MEDS: Magnesium Oxide TAB* 400 MG PO SCH (09:49)
[2017-08-05] MEDS: Potassium Chloride LIQUID* 20 MEQ PACKET PO SCH (09:49)
[2017-08-05] MEDS: Thiamine TAB* 100 MG TAB PO SCH (09:49)
[2017-08-05 10:06] LABS: EGFR Non-African American 65.6 (>60)
[2017-08-05 10:19] LABS: Hematocrit 21 % (35-47); Mean Corpuscular HGB Conc 34 g/dl (31-36); Mean Corpuscular Hemoglobin 31 pg (27-31); Mean Corpuscular Volume 93 fL (80-97); Mean Platelet Volume 9 um3 (7.4-10.4); Platelet Count 69 10^3/ul (150-450); Red Blood Count 2.24 10^6/ul (4.0-5.4); Red Cell Distribution Width 19 % (10.5-15); White Blood Count 4.5 10^3/ul (3.5-10.8)
--- NOTE | 2017-08-05 17:38 | PN ---
Subjective Date of Service: 08/05/17 Interval History: Pt will not talk with me. She just tells me she wants to be left alone. When confronted about making a choice about comfort care vs participating in her care and continuing to try to treat her she does finally answer a couple questions. She tells me she is not in pain and she is not SOB. Objective Active Medications: Albuterol/Ipratropium (Duoneb (Albuterol 2.5 Mg/Ipratropium 0.5 Mg)) 1 neb INH TID PRN PRN Reason: SHORTNESS OF BREATH Folic Acid (Folvite Tab*) 1 mg PO DAILY [facility] Last Admin: 08/05/17 09:48 Dose: 1 mg Lactulose (Lactulose*) 30 ml PO TID [facility] Magnesium Oxide (Magox 400 Tab*) 400 mg PO DAILY [facility] Last Admin: 08/05/17 09:49 Dose: 400 mg Midodrine (Midodrine (Nf)) 10 mg PO 0900,1800,2300 [facility] PRN Reason: Protocol Last Admin: 08/05/17 09:49 Dose: 10 mg Omeprazole (Prilosec Cap*) 20 mg PO BID [facility] Last Admin: 08/05/17 09:48 Dose: 20 mg Ondansetron HCl (Zofran Inj*) 4 mg IV Q6H PRN PRN Reason: NAUSEA Potassium Chloride (Klor-Con Liquid*) 40 meq PO DAILY [facility] Last Admin: 08/05/17 09:49 Dose: 40 meq Thiamine HCl (Vitamin B-1 Tab*) 100 mg PO DAILY [facility] Last Admin: 08/05/17 09:49 Dose: 100 mg Umeclidinium/Vilanterol (Anoro 62.5/25 Ellipta Device (Nf)) 2 inh INH DAILY [facility] Last Admin: 08/05/17 08:19 Dose: Not Given Vital Signs - 8 hr 08/05/17 08/05/17 08/05/17 10:00 11:00 11:58 Temperature Pulse Rate 118 99 Respiratory 23 14 18 Rate Blood Pressure 117/72 92/49 (mmHg) O2 Sat by Pulse 98 100 Oximetry 08/05/17 08/05/17 08/05/17 12:00 12:01 13:00 Temperature 98.2 F Pulse Rate 94 104 90 Respiratory 16 13 14 Rate Blood Pressure 101/64 89/55 (mmHg) O2 Sat by Pulse 100 100 98 Oximetry 08/05/17 08/05/17 08/05/17 13:01 14:00 15:00 Temperature Pulse Rate 89 99 105 Respiratory 16 15 14 Rate Blood Pressure 88/53 108/50 (mmHg) O2 Sat by Pulse 99 99 96 Oximetry 08/05/17 08/05/17 08/05/17 16:00 16:01 16:59 Temperature 99.8 F Pulse Rate 91 95 Respiratory 13 14 14 Rate Blood Pressure 93/55 (mmHg) O2 Sat by Pulse 98 98 Oximetry 08/05/17 17:00 Temperature Pulse Rate 95 Respiratory 14 Rate Blood Pressure 102/58 (mmHg) O2 Sat by Pulse 97 Oximetry Oxygen Devices in Use Now: None Appearance: Middle aged chronically ill appearing female sitting up in bed, NAD Eyes: - - icteric sclera Ears/Nose/Mouth/Throat: Mucous Membranes Moist Respiratory: Symmetrical Chest Expansion and Respiratory Effort, Clear to Auscultation Cardiovascular: NL Sounds; No Murmurs; No JVD, - - mildly tachycardic but regular, massive anasarca-slightly less than previous Abdominal: NL Sounds; No Tenderness; No Distention Extremities: No Clubbing, Cyanosis Skin: No Rash or Ulcers, No Nodules or Sclerosis Neurological: - - appears to be alert, oriented, she frequently tries to pull the covers over her head so she does not need to talk to me Result Diagrams: 08/05/17 09:31 08/05/17 09:31 Microbiology and Other Data: Microbiology 08/04/17 08:50 Gram Stain - Final Body Fluid 08/03/17 15:36 Nasal Screen MRSA (PCR)([facility]) - Final Nasal Mrsa Negative Assess/Plan/Problems-Billing Ms Aguirre is a 56 yo F who has a h/o alcoholism with alcoholic cirrhosis/end stage liver disease who presented to the ER with c/o abdominal pain and was found to have massive ascites and hyponatremia. - Patient Problems (1) End-stage liver disease Current Visit: Yes Status: Acute Code(s): K72.90 - HEPATIC FAILURE, UNSPECIFIED WITHOUT COMA SNOMED Code(s): 587238105 Comment: The patient remains hypotensive. I asked the patient to start to be engaged in her care if she wants to continue to work to improve her labs/vitals/ overall condition. She numerous times tells me to get away and leave her alone. 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 She does state at one point she does not want to . Will still ask for palliative care consult. Ascitic fluid without signs of infection. She remains hypotensive but able to talk-she has not tried to get out of bed. Checked ammonia today to see if hyperammonemia is the reason behind her now ambivalence to her care. Ammonia elevated at 92 and therefore will increase lactulose to TID. As she has been refusing all care I am not sure she will accept the lactulose. If mental status worse/she continues to refuse will consider placing NG tube to administer lactulose. (2) Hyponatremia Current Visit: Yes Status: Acute Code(s): E87.1 - HYPO-OSMOLALITY AND HYPONATREMIA SNOMED Code(s): 30659463 Comment: Na low but stable and close to her baseline. Hold on further fluid boluses/diuresis. (3) Anemia Current Visit: Yes Status: Acute Code(s): D64.9 - ANEMIA, UNSPECIFIED SNOMED Code(s): 504513644 Comment: H/H stable today. She refused the blood transfusion last night. (4) Thrombocytopenia Current Visit: Yes Status: Acute Code(s): D69.6 - THROMBOCYTOPENIA, UNSPECIFIED SNOMED Code(s): 535141389 Comment: Plt count is at baseline. Continue to monitor. (5) DVT prophylaxis Current Visit: Yes Status: Acute Code(s): AGP8557 - SNOMED Code(s): 296266717 Comment: SCDs (6) Patient is full code Current Visit: Yes Status: Acute Onset Date: 04/27/15 Code(s): Z78.9 - OTHER SPECIFIED HEALTH STATUS SNOMED Code(s): 497008773
[2017-08-06] MEDS: Umeclidin/Vilant 62.5 MDI 62.5/25 mcg 14 INH ELLIPTA DEVICE INH SCH (07:55)
[2017-08-06] MEDS: Folic Acid TAB* 1 MG PO SCH (09:36)
[2017-08-06] MEDS: Omeprazole CAP* 20 MG PO SCH ×2 (09:36→19:30)
[2017-08-06] MEDS: CMCS:Midodrine (NF) 5 MG TAB PO SCH ×3 (09:36→22:21)
[2017-08-06] MEDS: Thiamine TAB* 100 MG TAB PO SCH (09:36)
[2017-08-06] MEDS: Magnesium Oxide TAB* 400 MG PO SCH (09:36)
[2017-08-06] MEDS: Potassium Chloride LIQUID* 20 MEQ PACKET PO SCH (09:37)
[2017-08-06 10:01] LABS: Hematocrit 24 % (35-47); Mean Corpuscular HGB Conc 34 g/dl (31-36); Mean Corpuscular Hemoglobin 31 pg (27-31); Mean Corpuscular Volume 93 fL (80-97); Mean Platelet Volume 9 um3 (7.4-10.4); Platelet Count 78 10^3/ul (150-450); Red Blood Count 2.56 10^6/ul (4.0-5.4); Red Cell Distribution Width 19 % (10.5-15); White Blood Count 4.1 10^3/ul (3.5-10.8)
[2017-08-06 10:40] LABS: EGFR Non-African American 68.3 (>60)
--- NOTE | 2017-08-06 14:59 | PN ---
Subjective Date of Service: 08/06/17 Interval History: Ms. Aguirre refuses to interact with me today. She asks angrily to be left alone and wants me to leave her room. Objective Active Medications: Albuterol/Ipratropium (Duoneb (Albuterol 2.5 Mg/Ipratropium 0.5 Mg)) 1 neb INH TID PRN Folic Acid (Folvite Tab*) 1 mg PO DAILY [facility] Lactulose (Lactulose*) 30 ml PO TID [facility] Magnesium Oxide (Magox 400 Tab*) 400 mg PO DAILY [facility] Midodrine (Midodrine (Nf)) 10 mg PO 0900,1800,2300 [facility] Omeprazole (Prilosec Cap*) 20 mg PO BID [facility] Ondansetron HCl (Zofran Inj*) 4 mg IV Q6H PRN Potassium Chloride (Klor-Con Liquid*) 40 meq PO DAILY [facility] Thiamine HCl (Vitamin B-1 Tab*) 100 mg PO DAILY [facility] Umeclidinium/Vilanterol (Anoro 62.5/25 Ellipta Device (Nf)) 2 inh INH DAILY [facility] Vital Signs: Temp Pulse Resp BP Pulse Ox 97.7 F 99 20 119/57 100 08/06/17 12:12 08/06/17 12:12 08/06/17 12:12 08/06/17 12:12 08/06/17 12:12 Oxygen Devices in Use Now: None Appearance: Female lying in bed, head covered with blanket, in NAD Respiratory: Symmetrical Chest Expansion and Respiratory Effort, - - patient refused exam Cardiovascular: - - patient refused exam Abdominal: - - patient refused exam Skin: - - patient refused exam Neurological: Alert and Oriented x 3 Result Diagrams: 08/06/17 09:46 08/06/17 09:46 Microbiology and Other Data: . Assess/Plan/Problems-Billing Ms Aguirre is a 56 yo F who has a h/o alcoholism with alcoholic cirrhosis/end stage liver disease who presented to the ER with c/o abdominal pain and was found to have massive ascites and hyponatremia. - Patient Problems (1) End-stage liver disease Comment: - BP improved. - Ammonia 92, plan repeat in AM. Patient continues to refuse most interventions but did take lactulose this AM. Will work with nursing staff to increase efforts at persuading patient to take lactulose orally or via enema. I am concerned that patient's encephalopathy has impaired her capacity to refuse interventions, specifically lactulose, but this is impossible to assess as she will not speak with me. Have spoken with patient's mother who confirms that she has been oppositional and defiant throughout her life, further complicating assessment. Hope to avoid forced administration of lactulose. May need ethics committe to guide decision-making. For now, plan to increase efforts at persuasion and to have a capacity eval per psych. (2) Anemia Comment: - H/H stable today. - She has refused the blood transfusion. (3) Hyponatremia Comment: - Na low but stable and close to her baseline. Hold on further fluid boluses/ diuresis. (4) Thrombocytopenia Comment: - Plt count is at baseline. Continue to monitor. (5) DVT prophylaxis Comment: - SCDs (6) Full code status Comment: Status and Disposition: Inpatient.
--- NOTE | 2017-08-06 16:58 | CONSULT ---
Consult Consult: Consult for Medical Decision Making Capacity S: Psychiatry is asked to determine capacity in this 56 y.o. single, white female with a history of alcohol use disorder and end-stage liver disease. The patient appears delirious with hepatic encephalopathy, the treatment for which would be PO lactulose. In speaking with Hospitalist attending, Patsy Shin, the patient has steadfastly refused lactulose, and other medications, and has been hostile and uncooperative throughout her brief hospital course. On exam the patient is laying under her covers in bed and refuses to emerge for a conversation. "Get out of here!" she shouts. "I keep telling you I don't want to talk to you!" This observer makes numerous attempts to engage in a meaningful exchange, however she refuses to even look at me, staying covered for the remainder of the interaction. She correctly identifies her diagnosis as "cirrhosis" and, with much prompting, is able to state "lactulose" as the indicated treatment, however, she cannot specify what the risks would be to her continued refusal of this medication. O: middle aged white female with jaundiced skin on her forehead, laying supine in bed, covered up to her eyes with a hospital blanket; irritable and uncooperative; loud and hostile; denies SI or HI A/P: Capacity: the patient is able to appreciate her diagnosis and treatment but is unable to identify the risks involved with further refusal of indicated therapy. By definition she lacks capacity to provide informed refusal of lactulose. Psychiatry can be reconsulted in the event of any change in the patient's presentation.
[2017-08-06] MEDS ORDERED: Lactulose 300 ML for PR* 10 GM/15 ML BTL PR SCH (17:00)
[2017-08-06] MEDS: Lactulose 300 ML for PR* 10 GM/15 ML BTL PR SCH ×2 (17:23→20:41)
[2017-08-07] MEDS: Umeclidin/Vilant 62.5 MDI 62.5/25 mcg 14 INH ELLIPTA DEVICE INH SCH (08:22)
[2017-08-07] MEDS: Omeprazole CAP* 20 MG PO SCH ×2 (08:24→20:25)
[2017-08-07] MEDS: Folic Acid TAB* 1 MG PO SCH (08:28)
[2017-08-07] MEDS: CMCS:Midodrine (NF) 5 MG TAB PO SCH ×3 (08:30→22:45)
[2017-08-07] MEDS: Magnesium Oxide TAB* 400 MG PO SCH (08:30)
[2017-08-07] MEDS: Thiamine TAB* 100 MG TAB PO SCH (08:30)
[2017-08-07] MEDS: Lactulose 300 ML for PR* 10 GM/15 ML BTL PR SCH ×4 (08:30→20:27)
[2017-08-07] MEDS: Potassium Chlor TAB* 20 MEQ TAB.ER PO SCH (08:37)
--- NOTE | 2017-08-07 11:28 | PN ---
Subjective Date of Service: 08/07/17 Interval History: Patient denies abdo pain, has had 2 loose stools in last 24h. She is answering questions reluctantly. Here with mother and aunt. She remembered mother's birthday was today. Family History: Unchanged from Admission Social History: Unchanged from Admission Past Medical History: Unchanged from Admission Objective Active Medications: Albuterol/Ipratropium (Duoneb (Albuterol 2.5 Mg/Ipratropium 0.5 Mg)) 1 neb INH TID PRN PRN Reason: SHORTNESS OF BREATH Folic Acid (Folvite Tab*) 1 mg PO DAILY [facility] Last Admin: 08/07/17 08:28 Dose: 1 mg Lactulose (Lactulose*) 30 ml PO TID [facility] Last Admin: 08/07/17 08:21 Dose: 30 ml Lactulose (Lactulose 300 Ml For Pr*) 200 gm ID QID [facility] Last Admin: 08/07/17 08:30 Dose: Not Given Magnesium Oxide (Magox 400 Tab*) 400 mg PO DAILY [facility] Last Admin: 08/07/17 08:30 Dose: 400 mg Midodrine (Midodrine (Nf)) 10 mg PO 0900,1800,2300 [facility] PRN Reason: Protocol Last Admin: 08/07/17 08:30 Dose: Not Given Omeprazole (Prilosec Cap*) 20 mg PO BID [facility] Last Admin: 08/07/17 08:24 Dose: 20 mg Ondansetron HCl (Zofran Inj*) 4 mg IV Q6H PRN PRN Reason: NAUSEA Potassium Chloride (Klor Con Er Tab*) 40 meq PO DAILY [facility] Last Admin: 08/07/17 08:37 Dose: 40 meq Thiamine HCl (Vitamin B-1 Tab*) 100 mg PO DAILY [facility] Last Admin: 08/07/17 08:30 Dose: 100 mg Umeclidinium/Vilanterol (Anoro 62.5/25 Ellipta Device (Nf)) 2 inh INH DAILY [facility] Last Admin: 08/07/17 08:22 Dose: Not Given Vital Signs - 8 hr 08/07/17 08/07/17 08/07/17 04:15 08:00 08:07 Temperature 36.7 C 36.7 C Pulse Rate 98 97 Respiratory 16 16 16 Rate Blood Pressure 108/52 105/59 (mmHg) O2 Sat by Pulse 98 100 Oximetry Oxygen Devices in Use Now: None Appearance: chronically ill appearing, NAD Eyes: - - icteric sclera Ears/Nose/Mouth/Throat: Clear Oropharnyx Neck: Trachea Midline Respiratory: Clear to Auscultation Cardiovascular: NL Sounds; No Murmurs; No JVD Abdominal: - - distended, soft, +fluid wave, +BS Lymphatic: No Cervical Adenopathy Neurological: - - oriented to place, day, self Lines/Tubes/Other Access: Clean, Dry and Intact Peripheral IV Result Diagrams: 08/06/17 09:46 08/06/17 09:46 Additional Lab and Data: Laboratory Tests 08/07/17 05:11 Ammonia 73 H Assess/Plan/Problems-Billing Ms Aguirre is a 56 yo F who has a h/o alcoholism with alcoholic cirrhosis/end stage liver disease who presented to the ER with c/o abdominal pain and was found to have massive ascites and hyponatremia. - Patient Problems (1) End-stage liver disease Current Visit: Yes Status: Acute Priority: Medium Code(s): K72.90 - HEPATIC FAILURE, UNSPECIFIED WITHOUT COMA SNOMED Code(s): 085724115 Comment: - Ammonia down 73, plan repeat in AM. Patient more cooperative w/ treatment (2) Hepatic encephalopathy Current Visit: No Status: Acute Priority: High Code(s): K72.90 - HEPATIC FAILURE, UNSPECIFIED WITHOUT COMA SNOMED Code(s): 58023262 Comment: - Improved. - Dr. Rivero's consult appreciated. She is currently compliant w/ treatment, but if she refuses and it is medically necessary, we will treat against her will. (3) Hyponatremia Current Visit: Yes Status: Acute Priority: Medium Code(s): E87.1 - HYPO- OSMOLALITY AND HYPONATREMIA SNOMED Code(s): 36295677 Comment: - Na low but stable and close to her baseline. - recheck in AM (4) DVT prophylaxis Current Visit: Yes Status: Acute Priority: Low Code(s): JEP1048 - SNOMED Code(s): 199608836 Comment: - SCDs Status and Disposition: Inpatient. May be stable for discharge in 2-3 days
[2017-08-07] MEDS: Amitriptyline TAB* 10 MG PO SCH (20:25)
[2017-08-07] MEDS: Spironolactone TAB* 25 MG PO SCH (20:25)
[2017-08-08 05:42] LABS: EGFR Non-African American 81.2 (>60)
[2017-08-08 05:59] LABS: ABS Basophils 0 10^3/ul (0-0.2); ABS Eosinophils 0 10^3/ul (0-0.6); ABS Lymphocytes 0.7 10^3/ul (1.0-4.8); ABS Monocytes 0.5 10^3/ul (0-0.8); ABS Neutrophils 1.7 10^3/ul (1.5-7.7); ABS Nucleated RBC 0 10^3/ul; Eosinophil % 0 % (0-6); Hematocrit 22 % (35-47); Hemoglobin 7.6 g/dl (12.0-16.0); Lymphocyte % 24.6 % (25-47); Mean Corpuscular HGB Conc 35 g/dl (31-36); Mean Corpuscular Hemoglobin 32 pg (27-31); Mean Corpuscular Volume 92 fL (80-97); Mean Platelet Volume 8 um3 (7.4-10.4); Nucleated Red Blood Cells % 0; Platelet Count 71 10^3/ul (150-450); Red Cell Distribution Width 20 % (10.5-15)
[2017-08-08] MEDS: Amitriptyline TAB* 10 MG PO SCH ×2 (09:38→20:58)
[2017-08-08] MEDS: Folic Acid TAB* 1 MG PO SCH (09:38)
[2017-08-08] MEDS: Magnesium Oxide TAB* 400 MG PO SCH (09:39)
[2017-08-08] MEDS: Potassium Chlor TAB* 20 MEQ TAB.ER PO SCH (09:39)
[2017-08-08] MEDS: Lactulose 300 ML for PR* 10 GM/15 ML BTL PR SCH ×4 (09:39→21:01)
[2017-08-08] MEDS: Omeprazole CAP* 20 MG PO SCH ×2 (09:39→20:58)
[2017-08-08] MEDS: Thiamine TAB* 100 MG TAB PO SCH (09:41)
[2017-08-08] MEDS: Spironolactone TAB* 25 MG PO SCH (09:41)
[2017-08-08] MEDS: Umeclidin/Vilant 62.5 MDI 62.5/25 mcg 14 INH ELLIPTA DEVICE INH SCH (09:41)
--- NOTE | 2017-08-08 09:59 | PN ---
Subjective Date of Service: 08/08/17 Interval History: Patient continues to have epigastric discomfort when sitting, relieved by lying down. Tolerated starting spironolactone last night, no major increase in urine output. Started on amitriptyline for pain last night, no confusion. Patient asking for repeat paracentesis Family History: Unchanged from Admission Social History: Unchanged from Admission Past Medical History: Unchanged from Admission Objective Active Medications: Albuterol/Ipratropium (Duoneb (Albuterol 2.5 Mg/Ipratropium 0.5 Mg)) 1 neb INH TID PRN PRN Reason: SHORTNESS OF BREATH Amitriptyline HCl (Elavil Tab*) 10 mg PO BID [facility] Last Admin: 08/08/17 09:38 Dose: 10 mg Folic Acid (Folvite Tab*) 1 mg PO DAILY [facility] Last Admin: 08/08/17 09:38 Dose: 1 mg Lactulose (Lactulose*) 30 ml PO TID [facility] Last Admin: 08/08/17 09:38 Dose: 30 ml Lactulose (Lactulose 300 Ml For Pr*) 200 gm NC QID [facility] Last Admin: 08/08/17 09:39 Dose: Not Given Magnesium Oxide (Magox 400 Tab*) 400 mg PO DAILY [facility] Last Admin: 08/08/17 09:39 Dose: 400 mg Midodrine (Midodrine (Nf)) 10 mg PO 0900,1800,2300 [facility] PRN Reason: Protocol Last Admin: 08/07/17 22:45 Dose: Not Given Omeprazole (Prilosec Cap*) 20 mg PO BID [facility] Last Admin: 08/08/17 09:39 Dose: 20 mg Ondansetron HCl (Zofran Inj*) 4 mg IV Q6H PRN PRN Reason: NAUSEA Potassium Chloride (Klor Con Er Tab*) 10 meq PO BID [facility] Spironolactone (Aldactone Tab*) 25 mg PO DAILY [facility] Last Admin: 08/08/17 09:41 Dose: 25 mg Thiamine HCl (Vitamin B-1 Tab*) 100 mg PO DAILY [facility] Last Admin: 08/08/17 09:41 Dose: 100 mg Umeclidinium/Vilanterol (Anoro 62.5/25 Ellipta Device (Nf)) 2 inh INH DAILY [facility] Last Admin: 08/08/17 09:41 Dose: Not Given Vital Signs - 8 hr 08/08/17 08/08/17 08/08/17 04:08 07:44 08:00 Temperature 37.2 C 36.8 C Pulse Rate 104 96 Respiratory 16 14 14 Rate Blood Pressure 107/57 97/57 (mmHg) O2 Sat by Pulse 99 98 Oximetry Oxygen Devices in Use Now: None Appearance: chronically ill appearing Eyes: No Scleral Icterus Ears/Nose/Mouth/Throat: Clear Oropharnyx Respiratory: Symmetrical Chest Expansion and Respiratory Effort Cardiovascular: RRR Abdominal: NL Sounds; No Tenderness; No Distention, - - massive ascites Lines/Tubes/Other Access: Clean, Dry and Intact Kraus, Clean, Dry and Intact Peripheral IV Nutrition: Taking PO's Result Diagrams: 08/08/17 05:20 08/08/17 05:20 Additional Lab and Data: Laboratory Tests 08/05/17 08/07/17 08/08/17 09:31 05:11 05:20 Ammonia 92 H 73 H 65 H Assess/Plan/Problems-Billing Ms Aguirre is a 56 yo F who has a h/o alcoholism with alcoholic cirrhosis/end stage liver disease who presented to the ER with c/o abdominal pain and was found to have massive ascites and hyponatremia. - Patient Problems (1) End-stage liver disease Current Visit: Yes Status: Acute Priority: Medium Code(s): K72.90 - HEPATIC FAILURE, UNSPECIFIED WITHOUT COMA SNOMED Code(s): 172144303 Comment: - Ammonia down further, plan repeat in AM. Patient more cooperative w/ treatment as ammonia improved. - I believe she is on the right dose lactulose today. - Reduced KCl dose, should titrate up spironolactone as tolerated (2) Hepatic encephalopathy Current Visit: No Status: Acute Priority: High Code(s): K72.90 - HEPATIC FAILURE, UNSPECIFIED WITHOUT COMA SNOMED Code(s): 61754903 Comment: - Improved. - Dr. Rivero's consult appreciated. She is currently compliant w/ treatment, but if she refuses and it is medically necessary, we will treat against her will. (3) Hyponatremia Current Visit: Yes Status: Acute Priority: Medium Code(s): E87.1 - HYPO- OSMOLALITY AND HYPONATREMIA SNOMED Code(s): 99679257 Comment: - Na low but stable and close to her baseline. - Will mobilize, remove kraus (4) DVT prophylaxis Current Visit: Yes Status: Acute Priority: Low Code(s): FBG4291 - SNOMED Code(s): 906243489 Comment: - SCDs Status and Disposition: Inpatient. May be stable for discharge in 1-2 days with adequate supports at home to ensure compliance with medication
[2017-08-08] MEDS: CMCS:Midodrine (NF) 5 MG TAB PO SCH ×3 (13:49→23:35)
[2017-08-08] MEDS: Potassium Chlor TAB* 10 MEQ TAB.ER PO SCH (20:58)
[2017-08-09] MEDS: Umeclidin/Vilant 62.5 MDI 62.5/25 mcg 14 INH ELLIPTA DEVICE INH SCH (08:15)
[2017-08-09] MEDS: Spironolactone TAB* 25 MG PO SCH (09:29)
[2017-08-09] MEDS: Omeprazole CAP* 20 MG PO SCH ×2 (09:29→21:05)
[2017-08-09] MEDS: Amitriptyline TAB* 10 MG PO SCH ×2 (09:29→21:05)
[2017-08-09] MEDS: Potassium Chlor TAB* 10 MEQ TAB.ER PO SCH ×2 (09:29→21:05)
[2017-08-09] MEDS: Thiamine TAB* 100 MG TAB PO SCH (09:29)
[2017-08-09] MEDS: Folic Acid TAB* 1 MG PO SCH (09:30)
[2017-08-09] MEDS: CMCS:Midodrine (NF) 5 MG TAB PO SCH ×2 (09:30→17:05)
[2017-08-09] MEDS: Magnesium Oxide TAB* 400 MG PO SCH (09:30)
[2017-08-09] MEDS: Lactulose 300 ML for PR* 10 GM/15 ML BTL PR SCH ×4 (09:30→21:35)
--- NOTE | 2017-08-09 17:20 | PN ---
Subjective Date of Service: 08/09/17 Interval History: Patient seen and examined at bedside. Pt states that she is feeling well and is anxious for discharge to home. Denies fever, chills, shortness of breath, chest discomfort, N/V/D. Pt has been moving her bowel 1-2 times daily. Pt states that she is able to manage at home and doesn't feel that she needs any help at home. Family History: Unchanged from Admission Social History: Unchanged from Admission Past Medical History: Unchanged from Admission Objective Active Medications: Albuterol/Ipratropium (Duoneb (Albuterol 2.5 Mg/Ipratropium 0.5 Mg)) 1 neb INH TID PRN Reason: SHORTNESS OF BREATH Amitriptyline HCl (Elavil Tab*) 10 mg PO BID [facility] Folic Acid (Folvite Tab*) 1 mg PO DAILY [facility] Lactulose (Lactulose*) 30 ml PO TID [facility] Lactulose (Lactulose 300 Ml For Pr*) 200 gm ME QID [facility] Magnesium Oxide (Magox 400 Tab*) 400 mg PO DAILY [facility] Midodrine (Midodrine (Nf)) 10 mg PO 0900,1800,2300 [facility] Omeprazole (Prilosec Cap*) 20 mg PO BID [facility] Ondansetron HCl (Zofran Inj*) 4 mg IV Q6H PRN Reason: NAUSEA Potassium Chloride (Klor Con Er Tab*) 10 meq PO BID [facility] Spironolactone (Aldactone Tab*) 25 mg PO DAILY [facility] Thiamine HCl (Vitamin B-1 Tab*) 100 mg PO DAILY [facility] Umeclidinium/Vilanterol (Anoro 62.5/25 Ellipta Device (Nf)) 2 inh INH DAILY [facility] Vital Signs - 8 hr 08/09/17 08/09/17 11:26 15:03 Temperature 98.4 F 98.6 F Pulse Rate 96 104 Respiratory 17 17 Rate Blood Pressure 108/59 115/60 (mmHg) O2 Sat by Pulse 97 98 Oximetry Oxygen Devices in Use Now: None Appearance: NAD, laying in bed Eyes: - - Mild scleral icterus Respiratory: Symmetrical Chest Expansion and Respiratory Effort, Clear to Auscultation Cardiovascular: RRR, - - Grade 3/6 systolic murmur heard best at the left upper sternal border Abdominal: - - Bowel sounds present, abdomen soft, non tender and gravid appearing Extremities: - - 2+ bilateral LE edema Neurological: Alert and Oriented x 3, NL Muscle Strength and Tone Lines/Tubes/Other Access: Clean, Dry and Intact Peripheral IV - site benign Nutrition: Taking PO's Result Diagrams: 08/08/17 05:20 08/08/17 05:20 Additional Lab and Data: Laboratory Tests 08/05/17 08/07/17 08/08/17 09:31 05:11 05:20 Ammonia 92 H 73 H 65 H Microbiology and Other Data: . Assess/Plan/Problems-Billing Ms. Aguirre is a 56 yo F who has a h/o alcoholism with alcoholic cirrhosis/end stage liver disease who presented to the ER with c/o abdominal pain and was found to have massive ascites and hyponatremia. - Patient Problems (1) End-stage liver disease Code(s): K72.90 - HEPATIC FAILURE, UNSPECIFIED WITHOUT COMA SNOMED Code(s): 609026752 Comment: - Ammonia down further, plan repeat in AM. Patient more cooperative w/ treatment as ammonia improved. - Only with 1-2 BMs daily, will increae lactulose to QID - Continue spironolactone (2) Ascites Code(s): R18.8 - OTHER ASCITES SNOMED Code(s): 945157585 Comment: - Secondary to portal HTN - s/p ~ 7 L of fluid removed on admission, no evidence of SBP (3) Anemia Code(s): D64.9 - ANEMIA, UNSPECIFIED SNOMED Code(s): 578301831 Comment: - H/H stable - She has refused the blood transfusion. (4) Hyponatremia Code(s): E87.1 - HYPO-OSMOLALITY AND HYPONATREMIA SNOMED Code(s): 71212206 Comment: - Na low but stable and close to her baseline. - Suspect secondary to cirrhosis - Start fluid restriction (5) Thrombocytopenia Code(s): D69.6 - THROMBOCYTOPENIA, UNSPECIFIED SNOMED Code(s): 440442220 Comment: - Plt count stable. - Continue to monitor. (6) DVT prophylaxis Code(s): GPP7932 - SNOMED Code(s): 271258821 Comment: - SCDs (7) Full code status Code(s): Z78.9 - OTHER SPECIFIED HEALTH STATUS SNOMED Code(s): 051058103 Status and Disposition: Inpatient. May be stable for discharge in 1-2 days with adequate supports at home to ensure compliance with medication.
[2017-08-10] MEDS: CMCS:Midodrine (NF) 5 MG TAB PO SCH ×4 (00:02→22:41)
[2017-08-10 05:10] LABS: Hematocrit 23 % (35-47); Hemoglobin 7.8 g/dl (12.0-16.0); Mean Corpuscular HGB Conc 34 g/dl (31-36); Mean Corpuscular Hemoglobin 31 pg (27-31); Mean Corpuscular Volume 92 fL (80-97); Mean Platelet Volume 8 um3 (7.4-10.4); Platelet Count 74 10^3/ul (150-450); Red Blood Count 2.53 10^6/ul (4.0-5.4); Red Cell Distribution Width 20 % (10.5-15); White Blood Count 3.6 10^3/ul (3.5-10.8)
[2017-08-10 05:12] LABS: EGFR Non-African American 78.7 (>60)
[2017-08-10 05:36] LABS: ABS Basophils 0.2 10^3/ul (0-0.2); ABS Eosinophils 0 10^3/ul (0-0.6); ABS Lymphocytes 0.9 10^3/ul (1.0-4.8); ABS Monocytes 0.6 10^3/ul (0-0.8); ABS Neutrophils 1.9 10^3/ul (1.5-7.7); ABS Nucleated RBC 0 10^3/ul; Eosinophil % 0 % (0-6); Lymphocyte % 25.8 % (25-47); Nucleated Red Blood Cells % 0
[2017-08-10] MEDS: Magnesium Oxide TAB* 400 MG PO SCH (08:55)
[2017-08-10] MEDS: Omeprazole CAP* 20 MG PO SCH ×2 (08:56→22:41)
[2017-08-10] MEDS: Spironolactone TAB* 25 MG PO SCH (08:56)
[2017-08-10] MEDS: Folic Acid TAB* 1 MG PO SCH (08:57)
[2017-08-10] MEDS: Amitriptyline TAB* 10 MG PO SCH ×2 (08:57→22:41)
[2017-08-10] MEDS: Thiamine TAB* 100 MG TAB PO SCH (08:58)
[2017-08-10] MEDS: Lactulose 300 ML for PR* 10 GM/15 ML BTL PR SCH ×4 (08:59→22:46)
[2017-08-10] MEDS: Potassium Chlor TAB* 10 MEQ TAB.ER PO SCH ×2 (08:59→22:41)
[2017-08-10] MEDS: Umeclidin/Vilant 62.5 MDI 62.5/25 mcg 14 INH ELLIPTA DEVICE INH SCH (09:01)
--- NOTE | 2017-08-10 14:42 | CONSULT ---
Palliative / Hospice Consult Ordering Provider: Peggy Chacon - Subjective Code Status: Full Code Advance Directives Location: No Advance Directives MOLST Part A Completed: Yes - DNR Date: 08/10/17 MOLST Part E Completed:: Yes - DNI, comfort measures only Date: 08/10/17 HCP Completed: No - Wants to name Nikhil Melendrez, parents - History or Present Illness History or Present Illness: This 56 year old with a long history of alcohol and tobacco abuse is hospitalized now for the third time in 2 months for ascites/anasarca due to hepatic cirrhosis. She presented with severe discomfort due to severe abdominal distention and requested paracentesis. Her INR was elevated at 1.54, her bilirubin 5.6, H/H 8.7/26, and hyponatremia with Na 117. She has additional diagnoses of multiple myeloma, COPD, HTN, DJD and thrombocytopenia. Her nutritional status is poor with albumin 2.0. Ammonia level as high as 92, dropping to 65, although the patient has refused lectulose, leading to a psych evaluation that indicated she lacked capacity to manage her own medications. The patient has no children, and is closest to her parents, Ofelia and Ebenezer Melendrez. She lives in a home they own, and shares space with an old boyfriend, Gadiel, who is, according to the patient, a more severe alcoholic and heavier smoker than she is. According to the patient's mother, Gadiel has been signing her checks recently. 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 She has a teacup chihuua , which is the first thing she mentions when she is asked about what is important to her now and what she plans to do with her remaining time. She understands she has end-stage disease. She has not had any alcohol since June, according to her admission H&P (the patient tells me she thinks it was April). She does not want to return to the hospital, and she says she would not want CPR attempted, would not want a feeding tube or mechanical ventilation, and in general would prefer to stay home, if she could have her symptoms managed there. Lab Values: Abnormal Lab Results 08/10/17 08/10/17 04:41 04:41 WBC 3.6 RBC 2.53 L Hgb 7.8 L Hct 23 L MCV 92 MCH 31 MCHC 34 RDW 20 H Plt Count 74 L MPV 8 Neut % (Auto) 53.5 Lymph % (Auto) 25.8 [place] % (Auto) 15.8 H Eos % (Auto) 0 Baso % (Auto) 4.9 H Absolute Neuts (auto) 1.9 Absolute Lymphs (auto) 0.9 L Absolute Monos (auto) 0.6 Absolute Eos (auto) 0 Absolute Basos (auto) 0.2 Absolute Nucleated RBC 0 Nucleated RBC % 0 Sodium 123 L Potassium 4.3 Chloride 99 L Carbon Dioxide 19 L Anion Gap 5 BUN 11 Creatinine 0.76 Est GFR ( Amer) 101.2 Est GFR (Non-Af Amer) 78.7 BUN/Creatinine Ratio 14.5 Glucose 120 H Calcium 8.6 Laboratory Last Values WBC 3.6 10^3/ul (3.5-10.8) 08/10/17 04:41 RBC 2.53 10^6/ul (4.0-5.4) L 08/10/17 04:41 Hgb 7.8 g/dl (12.0-16.0) L 08/10/17 04:41 Hct 23 % (35-47) L 08/10/17 04:41 MCV 92 fL (80-97) 08/10/17 04:41 MCH 31 pg (27-31) 08/10/17 04:41 MCHC 34 g/dl (31-36) 08/10/17 04:41 RDW 20 % (10.5-15) H 08/10/17 04:41 Plt Count 74 10^3/ul (150-450) L 08/10/17 04:41 MPV 8 um3 (7.4-10.4) 08/10/17 04:41 Neut % (Auto) 53.5 % (38-83) 08/10/17 04:41 Lymph % (Auto) 25.8 % (25-47) 08/10/17 04:41 [place] % (Auto) 15.8 % (1-9) H 08/10/17 04:41 Eos % (Auto) 0 % (0-6) 08/10/17 04:41 Baso % (Auto) 4.9 % (0-2) H 08/10/17 04:41 Absolute Neuts (auto) 1.9 10^3/ul (1.5-7.7) 08/10/17 04:41 Absolute Lymphs (auto) 0.9 10^3/ul (1.0-4.8) L 08/10/17 04:41 Absolute Monos (auto) 0.6 10^3/ul (0-0.8) 08/10/17 04:41 Absolute Eos (auto) 0 10^3/ul (0-0.6) 08/10/17 04:41 Absolute Basos (auto) 0.2 10^3/ul (0-0.2) 08/10/17 04:41 Absolute Nucleated RBC 0 10^3/ul 08/10/17 04:41 Nucleated RBC % 0 08/10/17 04:41 INR (Anticoag Therapy) 1.54 (0.77-1.02) H 08/03/17 12:55 APTT 39.2 seconds (26.0-36.3) H 08/03/17 12:55 Sodium 123 mmol/L (133-145) L 08/10/17 04:41 Potassium 4.3 mmol/L (3.5-5.0) 08/10/17 04:41 Chloride 99 mmol/L (101-111) L 08/10/17 04:41 Carbon Dioxide 19 mmol/L (22-32) L 08/10/17 04:41 Anion Gap 5 mmol/L (2-11) 08/10/17 04:41 BUN 11 mg/dL (6-24) 08/10/17 04:41 Creatinine 0.76 mg/dL (0.51-0.95) 08/10/17 04:41 Est GFR ( Amer) 101.2 (>60) 08/10/17 04:41 Est GFR (Non-Af Amer) 78.7 (>60) 08/10/17 04:41 BUN/Creatinine Ratio 14.5 (8-20) 08/10/17 04:41 Glucose 120 mg/dL (70-100) H 08/10/17 04:41 Osmolality 258 mOsm/kg (275 - 295) L 08/03/17 12:55 Lactic Acid 2.0 mmol/L (0.5-2.0) 08/03/17 17:15 Calcium 8.6 mg/dL (8.6-10.3) 08/10/17 04:41 Total Bilirubin 5.60 mg/dL (0.2-1.0) H 08/03/17 12:55 AST 75 U/L (13-39) H 08/03/17 12:55 ALT 34 U/L (7-52) 08/03/17 12:55 Alkaline Phosphatase 104 U/L (34-104) 08/03/17 12:55 Ammonia 65 mol/L (16-53) H 08/08/17 05:20 C-Reactive Protein 17.34 mg/L (< 5.00) H 08/03/17 12:55 Total Protein 6.9 g/dL (6.4-8.9) 08/03/17 12:55 Albumin 2.0 g/dL (3.2-5.2) L 08/03/17 12:55 Globulin 4.9 g/dL (2-4) H 08/03/17 12:55 Albumin/Globulin Ratio 0.4 (1-3) L 08/03/17 12:55 Lipase 33 U/L (11.0-82.0) 08/03/17 12:55 TSH 10.28 mcIU/mL (0.34-5.60) H 08/03/17 12:55 Cortisol 11.21 mcg/dL 08/03/17 12:55 Urine Color [place] 08/03/17 21:55 Urine Appearance Clear 08/03/17 21:55 Urine pH 5.0 (5-9) 08/03/17 21:55 Ur Specific [place] 1.019 (1.010-1.030) 08/03/17 21:55 Urine Protein Negative (Negative) 08/03/17 21:55 Urine Ketones Trace (Negative) H 08/03/17 21:55 Urine Blood Negative (Negative) 08/03/17 21:55 Urine Nitrate Negative (Negative) 08/03/17 21:55 Urine Bilirubin Negative (Negative) 08/03/17 21:55 Urine Urobilinogen Negative (Negative) 08/03/17 21:55 Ur Leukocyte Esterase Negative (Negative) 08/03/17 21:55 Urine Osmolality 531 mOsm/kg (150 - 1150) 08/04/17 17:30 Ur Random Creatinine 167.86 mg/dL 08/03/17 22:06 Ur Random Sodium < 18 mmol/L 08/03/17 22:06 Urine Glucose Negative (Negative) 08/03/17 21:55 Urine Ascorbic Acid * (Negative) H 08/03/17 21:55 Fluid Source Peritonial fluid 08/04/17 08:50 Fluid Volume 8 mL 08/04/17 08:50 Fluid Color Yellow 08/04/17 08:50 Fluid Appearance Cloudy 08/04/17 08:50 Fluid WBC 60 /mcL (0-829419) 08/04/17 08:50 Fluid RBC 117 /mcL 08/04/17 08:50 Fluid Tot Cell Count 100 08/04/17 08:50 Fluid Neutrophils 14 % 08/04/17 08:50 Fluid Lymphocytes 12 % 08/04/17 08:50 Fluid Monocytes 74 % 08/04/17 08:50 Fluid Other Cells 6 08/04/17 08:50 Fluid Cell Count Rvw By 08/04/17 08:50 Blood Type A Positive 08/04/17 05:30 Antibody Screen Negative 08/04/17 05:30 Crossmatch See Detail 08/04/17 05:30 - Objective Active Medications: Albuterol/Ipratropium (Duoneb (Albuterol 2.5 Mg/Ipratropium 0.5 Mg)) 1 neb INH TID PRN PRN Reason: SHORTNESS OF BREATH Amitriptyline HCl (Elavil Tab*) 10 mg PO BID [facility] Last Admin: 08/10/17 08:57 Dose: 10 mg Folic Acid (Folvite Tab*) 1 mg PO DAILY [facility] Last Admin: 08/10/17 08:57 Dose: 1 mg Lactulose (Lactulose 300 Ml For Pr*) 200 gm RI QID [facility] Last Admin: 08/10/17 08:59 Dose: Not Given Lactulose (Lactulose*) 30 ml PO QID [facility] Last Admin: 08/10/17 08:59 Dose: 30 ml Magnesium Oxide (Magox 400 Tab*) 400 mg PO DAILY [facility] Last Admin: 08/10/17 08:55 Dose: 400 mg Midodrine (Midodrine (Nf)) 10 mg PO 0900,1800,2300 [facility] PRN Reason: Protocol Last Admin: 08/10/17 08:58 Dose: 10 mg Omeprazole (Prilosec Cap*) 20 mg PO BID [facility] Last Admin: 08/10/17 08:56 Dose: 20 mg Ondansetron HCl (Zofran Inj*) 4 mg IV Q6H PRN PRN Reason: NAUSEA Potassium Chloride (Klor Con Er Tab*) 10 meq PO BID [facility] Last Admin: 08/10/17 08:59 Dose: 10 meq Spironolactone (Aldactone Tab*) 25 mg PO DAILY [facility] Last Admin: 08/10/17 08:56 Dose: 25 mg Thiamine HCl (Vitamin B-1 Tab*) 100 mg PO DAILY [facility] Last Admin: 08/10/17 08:58 Dose: 100 mg Umeclidinium/Vilanterol (Anoro 62.5/25 Ellipta Device (Nf)) 2 inh INH DAILY [facility] Last Admin: 08/10/17 09:01 Dose: Not Given Vital Signs: Vital Signs: Temp Pulse Resp BP Pulse Ox 98.4 F 105 18 116/62 98 08/10/17 11:54 08/10/17 11:54 08/10/17 11:54 08/10/17 11:54 08/10/17 11:54 Patient Weight: Weight 182 lb 15.739 oz Intake and Output: Intake & Output 08/08/17 08/09/17 08/10/17 08/11/17 06:59 06:59 06:59 06:59 Intake Total 710 1580 1560 150 Output Total 545 725 400 0 Balance 427 195 9845 150 Intake: Oral 710 1580 1560 150 Output: Urine 400 400 0 Tomas 545 325 Other: Estimated Void Large # Bowel Movements 0 1 0 Estimated Stool Amount Medium ADLs: Meal Record Start: 08/03/17 15: 12 Freq: 09,13,18 Status: Complete Protocol: Document 08/03/17 18:24 [id number] (Rec: 08/03/17 18:25 [id number] ICU-C07) Document 08/04/17 11:30 [id number] (Rec: 08/04/17 11:30 [id number] ICU-C07) Document 08/04/17 15:01 [id number] (Rec: 08/04/17 15:01 [id number] ICU-C07) Document 08/05/17 09:00 [id number] (Rec: 08/05/17 11:31 [id number] ICU-C07) Document 08/06/17 09:00 [id number] (Rec: 08/06/17 10:10 [id number] ICU-C07) ADLs: Meal Record Start: 08/06/17 12: 12 Freq: Status: Active Protocol: Created 08/06/17 12:12 [id number] (Rec: 08/06/17 12:12 [id number] SSU-C11) Document 08/07/17 13:34 [id number] (Rec: 08/07/17 13:35 [id number] SSU-C09) Document 08/08/17 14:39 [id number] (Rec: 08/08/17 14:39 [id number] SSU-C05) Document 08/09/17 11:05 [id number] (Rec: 08/09/17 11:05 [id number] SSU-M14) Document 08/09/17 18:13 [id number] (Rec: 08/09/17 18:13 [id number] SSU-C06) Document 08/10/17 14:00 FPC1007 (Rec: 08/10/17 14:04 [id number] MED-C09) Intake and Output Start: 08/03/17 15: 12 Freq: 06,14,22 Status: Complete Protocol: Document 08/03/17 22:07 [id number] (Rec: 08/03/17 22:07 [id number] ICU-C12) Document 08/04/17 06:00 [id number] (Rec: 08/04/17 06:12 TBR1290 ICU-C12) Document 08/04/17 22:00 [id number] (Rec: 08/04/17 23:34 [id number] ICU-C07) Document 08/05/17 06:00 [id number] (Rec: 08/05/17 06:48 [id number] ICU-C07) Document 08/05/17 13:34 [id number] (Rec: 08/05/17 13:34 NPL1469 ICU-C07) Document 08/05/17 22:00 UXX2044 (Rec: 08/05/17 23:12 [id number] ICU-C07) Document 08/06/17 06:00 TPV2582 (Rec: 08/06/17 06:23 RRR6806 ICU-C07) Document 08/06/17 10:07 [id number] (Rec: 08/06/17 10:07 TQI8968 ICU-C07) Intake and Output Start: 08/06/17 12: 12 Freq: DAILY@0600,1400,2200 Status: Active Protocol: Created 08/06/17 12:12 [id number] (Rec: 08/06/17 12:12 [id number] SSU-C11) Document 08/06/17 14:00 [id number] (Rec: 08/06/17 14:41 VIR0351 SSU-C08) Document 08/06/17 22:56 [id number] (Rec: 08/06/17 22:57 [id number] SSU-C08) Document 08/07/17 00:38 [id number] (Rec: 08/07/17 00:39 XOU6080 SSU-C02) Document 08/07/17 06:00 QWJ1703 (Rec: 08/07/17 06:08 BFS1925 SSU-C11) Document 08/07/17 13:34 [id number] (Rec: 08/07/17 13:35 NMC2615 SSU-C09) Document 08/07/17 14:35 RJH0728 (Rec: 08/07/17 14:36 CPC1179 SSU-C09) Document 08/07/17 21:54 KWI3341 (Rec: 08/07/17 21:55 VUW2998 SSU-C04) Document 08/08/17 05:31 FUQ0191 (Rec: 08/08/17 05:31 IRH0490 SSU-C08) Document 08/08/17 14:00 UOW6569 (Rec: 08/08/17 14:07 [id number] [facility] [place]) Document 08/08/17 14:39 [id number] (Rec: 08/08/17 14:40 NPZ7016 SSU-C05) Document 08/08/17 21:48 IUS7336 (Rec: 08/08/17 21:50 XLJ9110 SSU-C06) Document 08/08/17 22:50 [id number] (Rec: 08/08/17 22:51 XRC6332 SSU-C01) Document 08/09/17 03:33 SKB3604 (Rec: 08/09/17 03:33 KNT3225 SSU-M14) Document 08/09/17 06:00 [id number] (Rec: 08/09/17 06:05 [id number] SSU-C06) Document 08/09/17 13:52 KDJ2349 (Rec: 08/09/17 13:52 [id number] SSU-C06) Document 08/09/17 15:44 QFL9182 (Rec: 08/09/17 15:44 PAL0530 SSU-C12) Document 08/09/17 21:59 [id number] (Rec: 08/09/17 22:00 [id number] SSU-C06) Document 08/10/17 04:23 [id number] (Rec: 08/10/17 04:23 HKY0537 SSU-C19) Document 08/10/17 05:20 [id number] (Rec: 08/10/17 05:20 [id number] SSU-C03) Document 08/10/17 14:00 [id number] (Rec: 08/10/17 14:14 [id number] MED-C11) Head: Symmetrical Eyes: - - Mild scleral icterus Ears/Nose/Mouth/Throat: Clear Oropharnyx Neck: Trachea Midline Cardiovascular: RRR, - - Grade 3/6 systolic murmur heard best at the left upper sternal border Respiratory: Symmetrical Chest Expansion and Respiratory Effort Abdominal: - - Bowel sounds present, no tympany, abdomen distended but not tense , nontender. Extremities: - - 3+ bilateral LE edema Neurological: Alert and Oriented x 3, NL Muscle Strength and Tone - Assessment Assessment: This patient has end-stage disease and has elected to pursue only comfort care measures. 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 She is interested in staying home on hospice services, especially if she can get paracentesis done there ( our hospice directorship doctors can do this) and not have to return to the hospital. The one point she is not willing to budge on is her conviction that she must return to her home. She does not want to separate from her dog, and she is not willing to go to a setting with a higher level of care. Apparently she is to be assessed by psychiatry for her decision-making capacity in this regard. I spoke to her mother, Ofelia Melendrez, on the phone and she was in agreement with hospice, and she is interested in obtaining HCP and POA status. This patient qualifies for hospice services on the basis of her diagnosis of advanced cirrhosis, with a secondary diagnosis of anasarca and hyponatremia, comorbid COPD. Thanks for asking for the consultation. - Plan Consult Plan (MU): Hospice - Time On Unit Date of Evaluation: 08/10/17 Hospice Consult Time in: 13:30 Hospice Consult Time Out: 15:00 Hospice Consult Time Total: 90
--- NOTE | 2017-08-10 16:56 | PN ---
Subjective Date of Service: 08/10/17 Interval History: Patient seen at bedside. Pt is declining a physical exam and asks me to go away after I told her that it wasn't safe to return home to her previous living situation. Pt is requesting to leave, I explained that we couldn't let her leave tonight. I question if Ms. Aguirre has capacity to make medical decisions for herself at this time such as leaving AMA or declining placement at discharge. Have asked Psych to come and eval her again today. At this time, we will not let the Pt leave AMA until she has been sen by Psych. Pt doesn't seem to understand that she is not ambulatory and is unable to use the bathroom and doesn't have support at home to care for her. Family History: Unchanged from Admission Social History: Unchanged from Admission Past Medical History: Unchanged from Admission Objective Active Medications: Albuterol/Ipratropium (Duoneb (Albuterol 2.5 Mg/Ipratropium 0.5 Mg)) 1 neb INH TID PRN Reason: SHORTNESS OF BREATH Amitriptyline HCl (Elavil Tab*) 10 mg PO BID ROSALIE Folic Acid (Folvite Tab*) 1 mg PO DAILY ROSALIE Lactulose (Lactulose 300 Ml For Pr*) 200 gm FL QID ROSALIE Lactulose (Lactulose*) 30 ml PO QID ROSALIE Magnesium Oxide (Magox 400 Tab*) 400 mg PO DAILY ROSALIE Midodrine (Midodrine (Nf)) 10 mg PO 0900,1800,2300 ROSALIE Omeprazole (Prilosec Cap*) 20 mg PO BID ROSALIE Ondansetron HCl (Zofran Inj*) 4 mg IV Q6H PRN Reason: NAUSEA Potassium Chloride (Klor Con Er Tab*) 10 meq PO BID ROSALIE Spironolactone (Aldactone Tab*) 25 mg PO DAILY ROSALIE Thiamine HCl (Vitamin B-1 Tab*) 100 mg PO DAILY ROSALIE Umeclidinium/Vilanterol (Anoro 62.5/25 Ellipta Device (Nf)) 2 inh INH DAILY ROSALIE Vital Signs - 8 hr 08/10/17 08/10/17 10:36 11:54 Temperature 98.1 F 98.4 F Pulse Rate 108 105 Respiratory 16 18 Rate Blood Pressure 92/69 116/62 (mmHg) O2 Sat by Pulse 98 98 Oximetry Oxygen Devices in Use Now: None Appearance: NAD, laying in bed Result Diagrams: 08/10/17 04:41 08/10/17 04:41 Additional Lab and Data: Laboratory Tests 08/05/17 08/07/17 08/08/17 09:31 05:11 05:20 Ammonia 92 H 73 H 65 H Microbiology and Other Data: . Assess/Plan/Problems-Billing Ms. Aguirre is a 56 yo F who has a h/o alcoholism with alcoholic cirrhosis/end stage liver disease who presented to the ER with c/o abdominal pain and was found to have massive ascites and hyponatremia. - Patient Problems (1) End-stage liver disease Code(s): K72.90 - HEPATIC FAILURE, UNSPECIFIED WITHOUT COMA SNOMED Code(s): 779174695 Comment: - Ammonia down further, plan repeat in AM. Patient more cooperative w/ treatment as ammonia improves. - Continue spironolactone and QID lactulose (2) Ascites Code(s): R18.8 - OTHER ASCITES SNOMED Code(s): 782040122 Comment: - Secondary to portal HTN - s/p ~ 7 L of fluid removed on admission, no evidence of SBP (3) Anemia Code(s): D64.9 - ANEMIA, UNSPECIFIED SNOMED Code(s): 584114252 Comment: - H/H stable - She has refused the blood transfusion. (4) Hyponatremia Code(s): E87.1 - HYPO-OSMOLALITY AND HYPONATREMIA SNOMED Code(s): 32544121 Comment: - Na low but stable and close to her baseline. - Suspect secondary to cirrhosis - Continue fluid restriction (5) Thrombocytopenia Code(s): D69.6 - THROMBOCYTOPENIA, UNSPECIFIED SNOMED Code(s): 241017016 Comment: - Plt count stable. - Continue to monitor. (6) DVT prophylaxis Code(s): UEQ0200 - SNOMED Code(s): 586897563 Comment: - SCDs (7) DNR (do not resuscitate) Comment: - Pt completed a MOLST with Dr. Giron today Status and Disposition: Inpatient. May be stable for discharge in 1-2 days with adequate supports at home to ensure compliance with medication.
--- NOTE | 2017-08-10 22:00 | PN ---
Progress Note - Progress Note Date of Service: 08/10/17 Note: Confirmed with Dr. Giron, patient had capacity when signing the MOLST form earlier this evening to be a DNR/DNI. Will place order in.
[2017-08-11] MEDS: Umeclidin/Vilant 62.5 MDI 62.5/25 mcg 14 INH ELLIPTA DEVICE INH SCH (07:24)
[2017-08-11 08:26] LABS: Hematocrit 25 % (35-47); Hemoglobin 8.5 g/dl (12.0-16.0); Mean Corpuscular HGB Conc 34 g/dl (31-36); Mean Corpuscular Hemoglobin 31 pg (27-31); Mean Corpuscular Volume 93 fL (80-97); Mean Platelet Volume 8 um3 (7.4-10.4); Platelet Count 77 10^3/ul (150-450); Red Blood Count 2.73 10^6/ul (4.0-5.4); Red Cell Distribution Width 20 % (10.5-15); White Blood Count 3.7 10^3/ul (3.5-10.8)
[2017-08-11 08:41] LABS: EGFR Non-African American 81.2 (>60)
[2017-08-11 08:50] LABS: Monocytes % 10 % (0-13)
[2017-08-11] MEDS: Lactulose 300 ML for PR* 10 GM/15 ML BTL PR SCH ×4 (10:38→23:09)
[2017-08-11] MEDS: Potassium Chlor TAB* 10 MEQ TAB.ER PO SCH ×2 (10:45→23:09)
[2017-08-11] MEDS: Spironolactone TAB* 25 MG PO SCH (10:45)
[2017-08-11] MEDS: Folic Acid TAB* 1 MG PO SCH (10:45)
[2017-08-11] MEDS: Omeprazole CAP* 20 MG PO SCH ×2 (10:45→23:09)
[2017-08-11] MEDS: Amitriptyline TAB* 10 MG PO SCH ×2 (10:45→23:09)
[2017-08-11] MEDS: Magnesium Oxide TAB* 400 MG PO SCH (10:45)
[2017-08-11] MEDS: CMCS:Midodrine (NF) 5 MG TAB PO SCH ×3 (10:46→23:09)
[2017-08-11] MEDS: Thiamine TAB* 100 MG TAB PO SCH (10:46)
--- NOTE | 2017-08-11 11:10 | CONSULT ---
Consult Consult: Consult for Medical Decision Making Capacity S: Psychiatry is again asked to determine capacity in this 56 y.o. single, white female with a history of alcohol use disorder and end-stage liver disease. Due to cognitive symptoms of hepatic encephalopathy, we determined that Ms. Aguirre did not have capacity to make an informed refusal of lactulose therapy on August 06. Since then, she has willingly complied with that particular treatment and her medical status, including cognition, have improved. This morning I spoke with nurse practitioner Trinidad Baldwin whose opinion is that Ms. Aguirre would benefit from placement in an SNF or in the Hospice residence, as she cannot tend to her own ADLs in the home setting and has not allowed nursing services to assist her there before. On exam the patient is sitting up in bed finishing her breakfast. She is irritable but cooperates superficially with the interview. When asked about her diagnosis, she replies "The liver. I'm dying in 6 months." I inquire about what her providers are recommending for aftercare, to which she responds "They want me to walk. I'm going home whether they like it or not." I ask her to sum up what she sees as the possible risks of declining the indicated treatment, which is nursing placement. "None. My dog would be happy if I came home." I asked specifically about her various ADLs and she answers "I don't know, I haven't tried to put on my socks yet. All I do at home is walk around in my robe." O: middle aged white female with jaundiced skin on her forehead, sitting up in bed, eating breakfast; irritable and minimally cooperative; normal rate/tone/ volume to speech; denies SI or HI Patient scores 28/30 on MMSE, missing points for floor (9th) and delayed recall. A/P: Capacity: the patient is able to appreciate her diagnosis but not the recommended treatment. In particular she is unable to identify the risks involved with further refusal of indicated therapy, totally underestimating her ability to take care of her own ADLs. By definition she lacks capacity to provide informed refusal of SNF or hospice residential placement. Psychiatry can be reconsulted in the event of any change in the patient's presentation
--- NOTE | 2017-08-11 12:40 | PN ---
Subjective Date of Service: 08/11/17 Interval History: Patient seen and examined at bedside. Denies fever, chills, shortness of breath , chest discomfort, N/V. Pt states that she had 1 large bowel movement this AM. Pt states that she would like to leave today. I discussed with her and her mother that she wasn't able to make her own discharge decisions and that it would be up to her mom to assist with discharge planning. We discussed that going home was not an option as she didn't have the help she needs, as she hasn' t even been ambulating here at the hospital due to her refusal to ambulate. We also discussed how in the past she excepted [facility] and then fired them when she got home. When Pt was notified that I was going to increase her lactulose r/t not having 3 -4 BMs daily, she stated that she wanted to go on Hospice. Amie with [facility] in to discuss with Pt and family discharge options. Family History: Unchanged from Admission Social History: Unchanged from Admission Past Medical History: Unchanged from Admission Objective Active Medications: Albuterol/Ipratropium (Duoneb (Albuterol 2.5 Mg/Ipratropium 0.5 Mg)) 1 neb INH TID PRN Reason: SHORTNESS OF BREATH Amitriptyline HCl (Elavil Tab*) 10 mg PO BID ROSALIE Folic Acid (Folvite Tab*) 1 mg PO DAILY ROSALIE Lactulose (Lactulose 300 Ml For Pr*) 200 gm LA QID ROSALIE Lactulose (Lactulose*) 30 ml PO QID ROSALIE Magnesium Oxide (Magox 400 Tab*) 400 mg PO DAILY ROSALIE Midodrine (Midodrine (Nf)) 10 mg PO 0900,1800,2300 ROSALIE Omeprazole (Prilosec Cap*) 20 mg PO BID ROSALIE Ondansetron HCl (Zofran Inj*) 4 mg IV Q6H PRN Reason: NAUSEA Potassium Chloride (Klor Con Er Tab*) 10 meq PO BID ROSALIE Spironolactone (Aldactone Tab*) 25 mg PO DAILY ROSALIE Thiamine HCl (Vitamin B-1 Tab*) 100 mg PO DAILY ROSALIE Umeclidinium/Vilanterol (Anoro 62.5/25 Ellipta Device (Nf)) 2 inh INH DAILY ROSALIE Oxygen Devices in Use Now: None Appearance: NAD, laying in bed Respiratory: Symmetrical Chest Expansion and Respiratory Effort, Clear to Auscultation Cardiovascular: NL Sounds; No Murmurs; No JVD, - - Grade 3/6 systolic murmur heard at the upper sternal borders Abdominal: - - Bowel sounds hypoactive, abdomen firm, gravid appearing, nontender Extremities: - - 1-2+ generalized edema Neurological: Alert and Oriented x 3 Lines/Tubes/Other Access: Clean, Dry and Intact Peripheral IV - site benign Nutrition: Taking PO's Result Diagrams: 08/11/17 08:17 08/11/17 08:17 Additional Lab and Data: Laboratory Tests 08/05/17 08/07/17 08/08/17 09:31 05:11 05:20 Ammonia 92 H 73 H 65 H Microbiology and Other Data: . Assess/Plan/Problems-Billing Ms. Aguirre is a 56 yo F who has a h/o alcoholism with alcoholic cirrhosis/end stage liver disease who presented to the ER with c/o abdominal pain and was found to have massive ascites and hyponatremia. - Patient Problems (1) End-stage liver disease Code(s): K72.90 - HEPATIC FAILURE, UNSPECIFIED WITHOUT COMA SNOMED Code(s): 917425395 Comment: - Ammonia down from admissoin. Patient more cooperative w/ treatment as ammonia improves. - Continue spironolactone and QID lactulose (increase as Pt is not only moving her bowels once daily) (2) Ascites Code(s): R18.8 - OTHER ASCITES SNOMED Code(s): 273685248 Comment: - Secondary to portal HTN - 08/04/17 s/p ~ 7 L of fluid removed, no evidence of SBP (3) Anemia Code(s): D64.9 - ANEMIA, UNSPECIFIED SNOMED Code(s): 153944006 Comment: - H/H stable - She has refused the blood transfusion. (4) Hyponatremia Code(s): E87.1 - HYPO-OSMOLALITY AND HYPONATREMIA SNOMED Code(s): 54131652 Comment: - Na low but stable and close to her baseline. - Suspect secondary to cirrhosis - Continue fluid restriction (5) Thrombocytopenia Code(s): D69.6 - THROMBOCYTOPENIA, UNSPECIFIED SNOMED Code(s): 856296344 Comment: - Plt count stable. - Continue to monitor. (6) DVT prophylaxis Code(s): [id number] - SNOMED Code(s): 322939519 Comment: - SCDs (7) DNR (do not resuscitate) Comment: - Pt completed a MOLST with Dr. Giron Status and Disposition: Inpatient. Pt doesn't have capacity for discharge decision making, suspect she will need SNF vs Hospice residence.
[2017-08-12] MEDS: Umeclidin/Vilant 62.5 MDI 62.5/25 mcg 14 INH ELLIPTA DEVICE INH SCH (08:15)
[2017-08-12] MEDS: Spironolactone TAB* 25 MG PO SCH (09:22)
[2017-08-12] MEDS: Magnesium Oxide TAB* 400 MG PO SCH (09:22)
[2017-08-12] MEDS: Omeprazole CAP* 20 MG PO SCH (09:22)
[2017-08-12] MEDS: Amitriptyline TAB* 10 MG PO SCH (09:22)
[2017-08-12] MEDS: Folic Acid TAB* 1 MG PO SCH (09:22)
[2017-08-12] MEDS: Potassium Chlor TAB* 10 MEQ TAB.ER PO SCH (09:22)
[2017-08-12] MEDS: Thiamine TAB* 100 MG TAB PO SCH (09:23)
[2017-08-12] MEDS: Lactulose 300 ML for PR* 10 GM/15 ML BTL PR SCH (09:29)
[2017-08-12] MEDS: CMCS:Midodrine (NF) 5 MG TAB PO SCH (09:29)
[2017-08-12 10:16] VITALS: BP 89/51
--- NOTE | 2017-08-12 10:19 | PN ---
Subjective Date of Service: 08/12/17 Interval History: Patient seen and examined at bedside. Denies fever, chills, shortness of breath , chest discomfort, N/V/D. Pt states that she is upset that she isn't able to where she wants to and has to go to the Hospice Residence, but would rather go to the residence then a NSG home. Family History: Unchanged from Admission Social History: Unchanged from Admission Past Medical History: Unchanged from Admission Objective Active Medications: Albuterol/Ipratropium (Duoneb (Albuterol 2.5 Mg/Ipratropium 0.5 Mg)) 1 neb INH TID PRN Reason: SHORTNESS OF BREATH Amitriptyline HCl (Elavil Tab*) 10 mg PO BID ROSALIE Folic Acid (Folvite Tab*) 1 mg PO DAILY ROSALIE Lactulose (Lactulose 300 Ml For Pr*) 200 gm [place] QID ROSALIE Lactulose (Lactulose*) 45 ml PO QID ROSALIE Magnesium Oxide (Magox 400 Tab*) 400 mg PO DAILY ROSALIE Midodrine (Midodrine (Nf)) 10 mg PO 0900,1800,2300 ROSALIE Omeprazole (Prilosec Cap*) 20 mg PO BID ROSALIE Ondansetron HCl (Zofran Inj*) 4 mg IV Q6H PRN Reason: NAUSEA Potassium Chloride (Klor Con Er Tab*) 10 meq PO BID ROSALIE Spironolactone (Aldactone Tab*) 25 mg PO DAILY ROSALIE Thiamine HCl (Vitamin B-1 Tab*) 100 mg PO DAILY ROSALIE Umeclidinium/Vilanterol (Anoro 62.5/25 Ellipta Device (Nf)) 2 inh INH DAILY [facility] Vital Signs - 8 hr 08/12/17 03:03 Temperature 99.2 F Pulse Rate 117 Respiratory 20 Rate Blood Pressure 95/67 (mmHg) O2 Sat by Pulse 99 Oximetry Oxygen Devices in Use Now: None Appearance: NAD, laying in bed Respiratory: Symmetrical Chest Expansion and Respiratory Effort, Clear to Auscultation Cardiovascular: RRR, - - 3/6 systolic murmur heard best at the upper sternal borders Abdominal: - - Abdomen large, gravid appearing, non tender. Extremities: - - Bilateral LE edema Neurological: - - Alert and Oriented to Person and Place Lines/Tubes/Other Access: Clean, Dry and Intact Peripheral IV - site benign Nutrition: Taking PO's Result Diagrams: 08/11/17 08:17 08/11/17 08:17 Additional Lab and Data: Laboratory Tests 08/05/17 08/07/17 08/08/17 09:31 05:11 05:20 Ammonia 92 H 73 H 65 H Microbiology and Other Data: . Assess/Plan/Problems-Billing Ms. Aguirre is a 56 yo F who has a h/o alcoholism with alcoholic cirrhosis/end stage liver disease who presented to the ER with c/o abdominal pain and was found to have massive ascites and hyponatremia. - Patient Problems (1) End-stage liver disease Code(s): K72.90 - HEPATIC FAILURE, UNSPECIFIED WITHOUT COMA SNOMED Code(s): 426049532 Comment: - Ammonia trending down. - Patient more cooperative w/ treatment as ammonia improves. - Continue spironolactone and QID lactulose (2) Ascites Code(s): R18.8 - OTHER ASCITES SNOMED Code(s): 804523413 Comment: - Secondary to portal HTN - 08/04/17 s/p ~ 7 L of fluid removed, no evidence of SBP (3) Anemia Code(s): D64.9 - ANEMIA, UNSPECIFIED SNOMED Code(s): 565500415 Comment: - H/H stable - She has refused the blood transfusion. (4) Hyponatremia Code(s): E87.1 - HYPO-OSMOLALITY AND HYPONATREMIA SNOMED Code(s): 13628287 Comment: - Na low but stable and close to her baseline. - Suspect secondary to cirrhosis - Continue fluid restriction (5) Thrombocytopenia Code(s): D69.6 - THROMBOCYTOPENIA, UNSPECIFIED SNOMED Code(s): 911614818 Comment: - Plt count stable. - Continue to monitor. (6) DVT prophylaxis Code(s): UEE1454 - SNOMED Code(s): 655159069 Comment: - SCDs (7) DNR (do not resuscitate) Comment: - Pt completed a MOLST with Dr. Giron Status and Disposition: Inpatient. Pt doesn't have capacity for discharge decision making, plan for discharge to the Hospice Residence today.
--- NOTE | 2017-08-14 00:19 | DS ---
CC: Dr. Snow Young* DISCHARGE SUMMARY: DATE OF ADMISSION: 08/03/17 DATE OF DISCHARGE: 08/12/17 ATTENDING PHYSICIAN: Dr. Ana King * (dictated by Geetha Urbina NP). PRIMARY CARE PROVIDER: Dr. Snow Young. PRIMARY DIAGNOSES: 1. Endstage liver disease. 2. Ascites secondary to portal hypertension. 3. Anemia. 4. Hyponatremia suspect secondary to cirrhosis. 5. Thrombocytopenia. SECONDARY DIAGNOSES: 1. Multiple myeloma. 2. Alcohol abuse. 3. Anasarca. 4. Hypertension. 5. Chronic obstructive pulmonary disease. 6. Arthritis. CONSULTATIONS WHILE IN THE HOSPITAL: 1. Dr. Alan Rivero, Psychiatry. 2. Dr. Kyle Catherine with General Surgery. 3. Dr. Anastacia Giron with Palliative Care. PROCEDURES WHILE IN THE HOSPITAL: Status post paracentesis on 08/04/[address] Kyle Catherine, status post approximately 7500 mL drained. STUDIES WHILE IN THE HOSPITAL: None. DISCHARGE MEDICATIONS: New home medication: 1. Morphine concentrate 5 mg oral every 4 hours as needed for pain or dyspnea. 2. Lorazepam 1 mg oral every 6 hours as needed for agitation, anxiety. 3. Lactulose 45 mL oral 4 times daily. 4. Spironolactone 25 mg oral daily. 5. Amitriptyline 10 mg oral twice daily. Continued home medications: Ellipta 62.5/25, two inhalations daily. Discontinued Home Medications: 1. Omeprazole. 2. DuoNeb. 3. Spironolactone. 4. Fosamax. 5. Folic acid. 6. Thiamine. 7. Magnesium oxide 8. Calcium carbonate. 9. Vitamin D3. 10. Midodrine. 11. Lactulose. 12. Potassium. 13. Bactrim. 14. Bumex. HISTORY OF PRESENT ILLNESS\HOSPITAL COURSE: Ms. Aguirre is a 56-year-old female with past medical history significant for multiple myeloma, cirrhosis, alcohol abuse, anasarca, hypertension, COPD, arthritis, and thrombo-cytopenia who presented to the emergency room with complaints of abdominal discomfort. The patient states that she had been taking her medications as prescribed except for Bumex as she was unable to get them from the pharmacy and she noticed over the last several weeks from her discharge that her abdomen was progressively getting bigger, became more painful to try stand up and she was uncomfortable. She was unable to lie flat due to the weight of her abdomen. Due to the concern of the discomfort patient presented to the hospital in hopes of having another paracentesis. While in the emergency room, patient was found to be jaundiced with hyponatremia and mildly elevated lactic acidosis and massive ascites. Hospitalists were asked to evaluate the patient for admission. While in the hospital the patient was treated for her hyponatremia. She was placed back on her diuretics, and underwent a paracentesis with Dr. Catherine draining approximately 7-1/2 L. She was placed back on her diuretics as her blood pressures allowed. During her stay, she developed hepatic encephalopathy. She was seen in consultation by Psychiatry who deemed that she was not confident to refuse lactulose, as her ammonia improved her cognition improved. Her thrombocytopenia remained at baseline. The patient was continued on vitamins for alcohol abuse. During her stay, she persistently insisted on going home although she did not have a safe plan or appeared to have a safe understanding of the implications of her going home without proper care. The patient was seen in consultation by Dr. Anastacia Giron with Palliative Care as the patient adamantly wanted to go home. The patient was seen again in consultation by Dr. Alan Rivero to evaluate her capacity to make discharge decisions. The patient was found to in fact not have capacity to make her own discharge decisions and between the patient and her mother it was decided she would be best going to the hospice residence where she would be able to continue to see her dog, but have support and care that she needed at the end of her life. Ms. Aguirre is stable for discharge to the hospice residence today. Vital signs are as follows: Temperature 98.1, heart rate 115, respiratory rate 16, O2 sat 99% on room air, blood pressure 89/51. DISCHARGE PLAN: Ms. Aguirre will be discharged to the hospice residence. Activity as tolerated. Can be on an unrestricted regular diet. As far as her ascites, I recommend continue to do therapeutic paracentesis as needed. She can be continued on spironolactone as I suspect this will help with her ascites. For now, I recommend to continue on the lactulose so cognitively she can continue to try to make some of her own choices and enjoy some time with her family. This could be stopped at any point if the patient wanted. I have sent prescriptions for lorazepam and morphine. For the patient, I-STOP was checked with reference number [id number]. This is a summarized report of a complex medical history and hospital stay. For further details, please see the entire medical record. TIME SPENT: Time for this discharge was approximately 50 minutes, greater than half of that was spent with the patient discussing discharge plans and instructions. CONDITION ON DISCHARGE: Guarded. GEETHA URBINA, VANESSA [id number]/CPS #: [id number] NARAYAN
--- NOTE | 2017-08-15 14:15 | ED ---
Miguel Angel Archuleta Stephanie, scribed for Edy Deleon MD on 08/03/17 at 1321 . Abdominal Pain/Female - HPI Summary HPI Summary: The pt is a 56 y/o F BIBA to the ED with c/o abd pain that began 12:28. Pt has a history of cirrhosis. Symptoms include feeling tired. The pt reports having her abd tapped 1 month ago to remove fluid. The pt denies fever, chills, and diaphoresis. - History of Current Complaint Chief Complaint: EDAbdPain Stated Complaint: CIRRHOSIS Time Seen by Provider: 08/03/17 12:27 Hx Obtained From: Patient, EMS ?: No Onset/Duration: Lasting Days - 1, Still Present Timing: Constant Severity Currently: Moderate Pain Intensity: 6 Pain Scale Used: 0-10 Numeric Location: Diffuse Radiates: No Aggravating Factor(s): Nothing Alleviating Factor(s): Nothing Associated Signs and Symptoms: Positive: Other: - decreased energy. Negative: Diaphoresis, Fever Allergies/Adverse Reactions: Allergies Allergy/AdvReac Type Severity Reaction Status Date / Time super glue Allergy Intermediate effects Uncoded 06/11/17 22:59 breathing per pt PMH/Surg Hx/FS Hx/Imm Hx Endocrine/Hematology History: Reports: Hx Bone Marrow Disease Cardiovascular History: Reports: Hx Hypertension Respiratory History: Reports: Hx Chronic Obstructive Pulmonary Disease (COPD) GI History: Reports: Hx Cirrhosis, Hx Gastroesophageal Reflux Disease Musculoskeletal History: Reports: Hx Arthritis, Hx Osteoporosis Sensory History: Reports: Hx Contacts or Glasses - for distance, but they are at home Denies: Hx Hearing Aid Opthamlomology History: Reports: Hx Contacts or Glasses - for distance, but they are at home Psychiatric History: Reports: Hx Substance Abuse - ETOH - Cancer History Cancer Type, Location and Year: multiple myeloma Hx Chemotherapy: No Hx Radiation Therapy: No - Surgical History Surgery Procedure, Year, and Place: tonsillectomy Hx Anesthesia Reactions: No - Immunization History Date of Tetanus Vaccine: UTD Date of Influenza Vaccine: UTD Infectious Disease History: No Infectious Disease History: Denies: Traveled Outside the [place] in Last 30 Days - Family History Known Family History: Positive: Unknown - Pt is unaware of any family history when asked. - Social History Occupation: Disabled Lives: Dormitory/Roommates Alcohol Use: Daily Alcohol Amount: states she doesn't anymore Substance Use Type: Reports: None Hx Tobacco Use: Yes Smoking Status (MU): Current Every Day Smoker Type: Cigarettes Review of Systems Negative: Fever, Chills, Skin Diaphoresis Negative: Erythema Negative: Sore Throat Negative: Chest Pain Negative: Shortness Of Breath, Cough Negative: Abdominal Pain, Vomiting, Nausea Negative: dysuria, hematuria Negative: Myalgia, Edema Negative: Rash Neurological: Other - Negative: dizziness All Other Systems Reviewed And Are Negative: Yes Physical Exam - Summary Physical Exam Summary: Constitutional: Well-developed, Well-nourished, Alert. (-) Distressed Skin: Warm, Dry HENT: Normocephalic; Atraumatic Eyes: Conjunctiva normal Neck: Musculoskeletal ROM normal neck. (-) JVD, (-) Stridor, (-) Tracheal deviation Cardio: Rhythm regular, rate normal, Heart sounds normal; Intact distal pulses; The pedal pulses are 2+ and symmetric. Radial pulses are 2+ and symmetric. (-) Murmur Pulmonary/Chest wall: Effort normal. (-) Respiratory distress, (-) Wheezes, (-) Rales Abd: (-) Guarding, (-) Rebound, tense ascites with mild tenderness. No redness or warmth. Musculoskeletal: (-) Edema Lymph: (-) Cervical adenopathy Neuro: Alert, Oriented x3 Psych: Mood and affect Normal Triage Information Reviewed: Yes Vital Signs On Initial Exam: Initial Vitals Temp Pulse Resp BP Pulse Ox 98.0 F 119 20 102/54 99 08/03/17 12:27 08/03/17 12:27 08/03/17 12:27 08/03/17 12:27 08/03/17 12:27 Vital Signs Reviewed: Yes Diagnostics - Vital Signs Vital Signs Temp Pulse Resp BP Pulse Ox 08/03/17 12:27 98.0 F 119 20 102/54 99 - Laboratory Result Diagrams: 08/03/17 12:55 08/03/17 12:55 Lab Statement: Any lab studies that have been ordered have been reviewed, and results considered in the medical decision making process. Abdominal Pain Fem Course/Dx - Course Course Of Treatment: Gradual onset hyponatremia. Without mental status changes or seizure. Volume replacement with normal saline. Admit pt for repletion and paracentesis. - Diagnoses Provider Diagnoses: Ascites, Cirrhosis of liver - Provider Notifications Discussed Care Of Patient With: Justin Wray - ED physician left message with Dr. Wray for need for paracentesis. Time Discussed With Above Provider: 13:30 Discharge - Discharge Plan Condition: Stable Disposition: ADMITTED TO [facility] Referrals: Snow Young MD [Primary Care Provider] - The documentation as recorded by the Miguel Angel novak Stephanie accurately reflects the service I personally performed and the decisions made by , Edy Deleon MD.
== END 2017-08-12 12:05 | disposition hospice, inpatient (51) | DRG 433 ==
LOC: ED 12:20 → ICU 14:42 → SSU 08-06 09:18 → MED 08-10 10:15
PROVIDERS: ADMIT Internal Medicine; ATTEND Internal Medicine
PROC: 0W9G3ZZ Drainage of Peritoneal Cavity, Percutaneous Approach (ICD-10-PCS; principal; 2017-08-04)
DX: K70.31 Alcoholic cirrhosis of liver with ascites (principal); C90.00 Multiple myeloma not having achieved remission; K72.90 Hepatic failure, unspecified without coma; I95.9 Hypotension, unspecified; D69.6 Thrombocytopenia, unspecified; E87.1 Hypo-osmolality and hyponatremia; K76.6 Portal hypertension; I10 Essential (primary) hypertension; J44.9 Chronic obstructive pulmonary disease, unspecified; K21.9 Gastro-esophageal reflux disease without esophagitis; M19.90 Unspecified osteoarthritis, unspecified site; M81.0 Age-related osteoporosis without current pathological fracture; F17.210 Nicotine dependence, cigarettes, uncomplicated; D64.9 Anemia, unspecified; F10.20 Alcohol dependence, uncomplicated; Y90.9 Presence of alcohol in blood, level not specified; Z66 Do not resuscitate; Z91.048 Other nonmedicinal substance allergy status; Z82.49 Family history of ischemic heart disease and other diseases of the circulatory system; Z82.0 Family history of epilepsy and other diseases of the nervous system
CPT/HCPCS: 36415; 80048; 80053; 81003; 82140; 82533; 82570; 83605; 83690; 83930; 83935; 84300; 84443; 85025; 85027; 85610; 85730; 86140; 86850; 86900; 86901; 86922; 87040; 87086; 87205; 87641; 89051; 94760; 99406; A9270-GY; P9047